=== PATIENT | male | born 1970 | race Caucasian/White ===

== ENCOUNTER 2016-08-05 10:30 | Outpatient (CLI) | payer MEDICAID | END 2016-08-05 10:45 | disposition home or self-care (01) | DX: R07.9 Chest pain, unspecified (principal) ==

== ENCOUNTER 2016-09-08 16:48 | Outpatient (CLI) | payer MEDICAID | END 2016-09-08 16:49 | disposition critical access hospital (66) | DX: R46.89 Other symptoms and signs involving appearance and behavior (principal) | CPT/HCPCS: A0425; A0429 ==

== ENCOUNTER 2016-09-08 17:06 | Emergency (ER) | payer MEDICAID ==
[2016-09-08] MEDS ORDERED: LORazepam 2 MG/ML SYRINGE IVP STA (17:48)
[2016-09-08] MEDS ORDERED: SODIUM CHLORIDE 0.9% 1,000 ML IV ONE ×2 (17:48→17:58)
[2016-09-08] MEDS ORDERED: HALOPERIDOL 5 MG/ML VIAL IVP ONE (17:48)
[2016-09-08] MEDS ORDERED: LORazepam 2 MG/ML SYRINGE ONE (17:58)
[2016-09-08] MEDS ORDERED: HALOPERIDOL 5 MG/ML VIAL ONE (17:58)
== END 2016-09-09 00:24 | disposition home or self-care (01) ==
DX: R41.82 Altered mental status, unspecified (principal); F15.90 Other stimulant use, unspecified, uncomplicated; Z59.0 Homelessness; R03.0 Elevated blood-pressure reading, without diagnosis of hypertension
CPT/HCPCS: 36415; 80053; 80307; 80320; 80329; 82550; 83690; 83735; 84443; 85025; 96374; 96375; 99283; 99284; J2060

== ENCOUNTER 2016-09-29 08:32 | Emergency (ER) | payer MEDICAID ==
[2016-09-29] MEDS ORDERED: BENZONATATE 100 MG CAPSULE PO STA (09:06)
[2016-09-29] MEDS ORDERED: OXYMETAZOLINE NASAL SPRAY NAS STA (09:07)
--- NOTE | 2016-09-29 09:09 | ED Physician Documentation ---
History of Present Illness - Stated complaint Stated Complaint: DIFFICULTY BREATHING - Chief complaint Chief Complaint: General - Additonal information Additional information: hx from pt 46 male fever cough congestion sore throat for seversal days L calf pain insidious onset worse with standing for many months staying at a [facility] and was told if he did not go to the ER for his cough he could not come back Review of Systems Constitutional: reports: Fever Throat: reports: Sore throat Respiratory: reports: Cough GI: denies: Abdominal Pain Musculoskeletal: reports: Extremity pain (L calf). denies: Extremity swelling Endocrine: denies: Easy bruising / bleeding Immunocompromised: denies: Immunocompromised PD PAST MEDICAL HISTORY - Past Medical History Cardiovascular: None Respiratory: None Neuro: None GI: GERD Musculoskeletal: None - Present Medications Home Medications: Ambulatory Orders Medication Instructions Recorded Confirmed Benzonatate [Tessalon] 100 mg PO TID PRN #20 capsule 09/29/16 Omeprazole [PriLOSEC] 20 mg PO DAILY 09/29/16 09/29/16 Oxymetazoline HCl [Afrin] 2 spray NS BID PRN #1 bottle 09/29/16 guaiFENesin/DEXTROMETHORPHAN 10 ml PO Q6H PRN #120 ml 09/29/16 [Robitussin Dm] - Allergies Allergies/Adverse Reactions: Allergies Allergy/AdvReac Type Severity Reaction Status Date / Time No Known Drug Allergies Allergy Verified 09/29/16 08:37 - Social History Does the pt smoke?: No Smoking Status: Never smoker Does the pt drink ETOH?: Yes Does the pt have substance abuse?: Yes Substance Use and Type: Meth PD ED PE NORMAL - Vitals Vital signs reviewed: Yes - General General: Alert and oriented X 3 - HEENT HEENT: PERRL, Moist mucous membranes. No: Pharynx benign (erythema s exudate) - Neck Neck: Supple, no meningeal sign - Cardiac Cardiac: RRR - Respiratory Respiratory: No respiratory distress, Clear bilaterally - Abdomen Abdomen: Soft, Non tender - Back Back: No spinal TTP (and no erythema swelling or warmth) - Extremities Extremities: No edema. No: No calf tenderness / cord (L calf TTP, MSV intact, worse with SLR, denmies saddle anesthesia incont, hip flex knee ext foot dorsi plantar 5/5) Results - Vitals Vitals: Vital Signs - 24 hr 09/29/16 09/29/16 08:35 11:11 Temperature 37.1 C Heart Rate 80 87 Respiratory 20 22 Rate Blood Pressure 144/94 H 136/88 H O2 Saturation 100 97 Oxygen O2 Source Room air - Labs Labs: Laboratory Tests 09/29/16 09:15 Group A Strep Rapid Negative - Rads (name of study) CXR Radiology: See rad report (neg) doppler Radiology: See rad report (neg) PD MEDICAL DECISION MAKING - ED course ED course: no pna no strep no DVT will dc with symptomatic meds Departure - Departure Disposition: 01 Home, Self Care Clinical Impression: Bronchitis Condition: Good Instructions: ED URI Viral Prescriptions: Oxymetazoline HCl [Afrin] 2 spray NS BID PRN #1 bottle PRN Reason: nasal sinus ear congestion guaiFENesin/DEXTROMETHORPHAN [Robitussin Dm] 10 ml PO Q6H PRN #120 ml PRN Reason: Cough Benzonatate [Tessalon] 100 mg PO TID PRN #20 capsule PRN Reason: to ease cough Comments: The strep test was negative The xray showed no pneumonia Your cough is likely a viral infection This does not make you any less ill but means antibiotics are not needed I have prescribed medications to ease your symptoms. If the strep culture is positive the ER will call you to start antibiotics The ultrasound of your leg did not show a blood clot - the pain is likely from the calf muscle. Wearing cushioned shoes with good arch support and using a heel cushion (available over the counter from [employer]) to ease the stretch on your calf should help ease the pain at work And please follow up with your PMD about your blood pressure - it was high today
[2016-09-29] MEDS ORDERED: OXYMETAZOLINE NASAL SPRAY NAS ONE (09:11)
[2016-09-29] MEDS ORDERED: BENZONATATE 100 MG CAPSULE PO ONE (09:11)
[2016-09-29] MEDS ORDERED: DEXAMETHASONE 10 MG/ML VIAL PO STA (09:11)
[2016-09-29 09:37] LABS: RAPID STREP SCREEN REAGENT QC YELLOW (YELLOW)
[2016-09-29] MEDS ORDERED: DEXAMETHASONE 10 MG/ML VIAL ONE (09:39)
--- NOTE | 2016-09-29 10:07 | XRAY Preliminary Report ---
Exam: XR Chest 2 View PA/LAT IMPRESSION: Normal 2-view chest radiography. [facility] SITE ID: [id number]
--- NOTE | 2016-09-29 10:10 | XRAY Report ---
EXAM: CHEST RADIOGRAPHY EXAM DATE: 09/29/2016 09:29 AM. CLINICAL HISTORY: Cough soa. COMPARISON: 08/13/2012. TECHNIQUE: 2 views. FINDINGS: Lungs/Pleura: No focal opacities evident. No pleural effusion. No pneumothorax. Normal volumes. Mediastinum: Heart and mediastinal contours are unremarkable. Other: None. IMPRESSION: Normal 2-view chest radiography. [facility] Referring Provider Line: [phone] SITE ID: [id number]
[2016-09-29 11:50] VITALS: BP 133/87
--- NOTE | 2016-09-29 13:58 | Ultrasound Report ---
LEFT LEG VENOUS DUPLEX: 09/29/2016 CLINICAL INDICATION: Pain. TECHNIQUE: Real-time sonographic vascular imaging was performed by the community living instructor through the left l ower extremity utilizing both color flow and Doppler spectral analysis. Multiple technical support representative stati c images were saved for review. FINDINGS: A left lower extremity venous sonogram is performed revealing the common femoral, superfici al femoral, profunda femoris, and popliteal veins to be adequately visualized without intraluminal de fects. There is normal venous compression, augmentation, phasicity, and spontaneity of venous flow. In the calf, the visualized more cephalad portions of posterior tibial and peroneal veins are grossly compressible, without filling defects. IMPRESSION: NO EVIDENCE OF DEEP VENOUS THROMBOSIS. JOB #: [id number] EXT JOB #:[id number]
== END 2016-09-29 11:50 | disposition home or self-care (01) ==
LOC: ED 08:32
DX: J40 Bronchitis, not specified as acute or chronic (principal); M79.662 Pain in left lower leg; R03.0 Elevated blood-pressure reading, without diagnosis of hypertension
CPT/HCPCS: 71020; 87070; 87430; 93971; 99283; 99284; A9270

== ENCOUNTER 2017-03-27 23:22 | Outpatient (CLI) | payer MEDICAID | END 2017-03-27 23:23 | disposition critical access hospital (66) | LOC: EMS 23:22 | PROVIDERS: ATTEND Surgery | DX: F99 Mental disorder, not otherwise specified (principal) | CPT/HCPCS: A0425; A0429 ==

== ENCOUNTER 2017-03-27 23:37 | Emergency (ER) | payer MEDICAID ==
[2017-03-28 02:59] VITALS: BP 160/92
[2017-03-28 03:16] LABS: BASOPHILS % (AUTO) 0.2 %; EOSINOPHILS # (AUTO) 0.1 10^3/uL (0.0-0.7); EOSINOPHILS % (AUTO) 0.9 %; HCT - HEMATOCRIT 37.1 % (42.0-52.0); HGB - HEMOGLOBIN 12.7 g/dL (14.0-18.0); LYMPHOCYTES # (AUTO) 2.2 10^3/uL (1.5-3.5); LYMPHOCYTES % (AUTO) 18.5 %; MEAN CORPUSCULAR HEMOGLOBIN 29.8 pg (27.0-31.0); MEAN CORPUSCULAR HGB CONC 34.1 g/dL (32.0-36.0); MEAN CORPUSCULAR VOLUME 87.5 fL (80.0-94.0); MONOCYTES # (AUTO) 1.2 10^3/uL (0.0-1.0); MONOCYTES % (AUTO) 10.4 %; NEUTROPHILS # (AUTO) 8.4 10^3/uL (1.5-6.6); RED BLOOD COUNT 4.24 10^6/uL (4.70-6.10); RED CELL DISTRIBUTION WIDTH 13.7 % (12.0-15.0)
[2017-03-28 03:27] LABS: ALBUMIN/GLOBULIN RATIO 1.1 (1.0-2.2); BILIRUBIN,TOTAL 0.9 mg/dL (0.2-1.0); BUN - BLOOD UREA NITROGEN 19 mg/dL (6-20); CALCIUM 9.2 mg/dL (8.5-10.3); CARBON DIOXIDE - CO2 21 mmol/L (21-32); CHLORIDE 102 mmol/L (101-111); GFR - MDRD 81 (>89); GLUCOSE 104 mg/dL (70-100); LIPASE 23 U/L (22-51); POTASSIUM 3.5 mmol/L (3.5-5.0); SODIUM 136 mmol/L (135-145); TOTAL PROTEIN 7.8 g/dL (6.7-8.2)
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
== END 2017-03-28 08:26 | disposition home or self-care (01) ==
LOC: EDUNIT# → ED 23:37
DX: F15.10 Other stimulant abuse, uncomplicated (principal); R40.4 Transient alteration of awareness; Z59.0 Homelessness
CPT/HCPCS: 36415; 80053; 80306; 80320; 83690; 85025; 99283; 99284

== ENCOUNTER 2017-04-15 07:05 | Outpatient (CLI) | payer MEDICAID | END 2017-04-15 07:06 | disposition critical access hospital (66) | LOC: EMS 07:05 | PROVIDERS: ATTEND Surgery | DX: R10.9 Unspecified abdominal pain (principal) | CPT/HCPCS: A0425; A0429 ==

== ENCOUNTER 2017-04-15 07:20 | Emergency (ER) | payer MEDICAID ==
[2017-04-15] MEDS ORDERED: LIDOCAINE VISCOUS 2% 15 ML UDC MM STA (07:27)
[2017-04-15] MEDS ORDERED: MAG HYDROX/AL HYDROX/SIMETH 30 ML UDC PO STA (07:27)
[2017-04-15] MEDS ORDERED: FAMOTIDINE 20 MG/50 ML 50 ML IV ONE ×2 (07:28→08:09)
--- NOTE | 2017-04-15 07:31 | ED Physician Documentation ---
History of Present Illness - Stated complaint Stated Complaint: ABD PAIN - Chief complaint Chief Complaint: Abd Pain - Additonal information Additional information: hx from pt 46 male 2 primary concerns 1) "esophogeal" pain from epigastric region to chest buring 11/22 for last several hr he believes due to being out of his omeprazole. hx same sx when out of omeprazole, states he vomited 1/2 cup of blood earlier today, denies balck bloody BMs, EtOH abuse but denies cirrhosis/liver dz/esophogeal varices 2) homeless, has been banned from [employer], uses EtOH and meth Review of Systems Constitutional: denies: Fever Cardiac: reports: Chest pain / pressure Respiratory: denies: Dyspnea GI: reports: Abdominal Pain, Nausea, Vomiting, Hematemesis. denies: Bloody / black stool Endocrine: denies: Easy bruising / bleeding Immunocompromised: denies: Immunocompromised PD PAST MEDICAL HISTORY - Past Medical History Cardiovascular: None Respiratory: None Neuro: None GI: GERD Musculoskeletal: None - Present Medications Home Medications: Ambulatory Orders Medication Instructions Recorded Confirmed Omeprazole [PriLOSEC] 20 mg PO DAILY 09/29/16 04/15/17 Omeprazole [PriLOSEC] 20 mg PO DAILY #30 capsule 04/15/17 Sucralfate 1 gm PO ACHS #120 tablet 04/15/17 raNITIdine [Zantac] 150 mg PO BID #60 tablet 04/15/17 - Allergies Allergies/Adverse Reactions: Allergies Allergy/AdvReac Type Severity Reaction Status Date / Time No Known Drug Allergies Allergy Verified 04/15/17 07:28 - Social History Does the pt smoke?: No Smoking Status: Never smoker Does the pt drink ETOH?: Yes Does the pt have substance abuse?: Yes PD ED PE NORMAL - Vitals Vital signs reviewed: Yes - General General: Alert and oriented X 3 - HEENT HEENT: PERRL, Other (no blood in or around mouth) - Neck Neck: Supple, no meningeal sign - Cardiac Cardiac: RRR - Respiratory Respiratory: No respiratory distress - Abdomen Abdomen: Soft, Non tender - Derm Derm: Normal color - Extremities Extremities: Normal ROM s pain - Neuro Neuro: Alert and oriented X 3 - Psych Psych: Normal mood Results - Vitals Vitals: Vital Signs - 24 hr 04/15/17 07:22 Temperature 36.6 C Heart Rate 82 Respiratory 20 Rate Blood Pressure 133/93 H O2 Saturation 97 Oxygen O2 Source Room air - EKG (time done) 0738 Rate: Rate (enter#) Rhythm: NSR Intervals: Normal LA QRS: Normal Ischemia: Normal ST segments - Labs Labs: Laboratory Tests 04/15/17 04/15/17 04/15/17 07:44 07:44 07:44 WBC 11.6 H RBC 4.59 L Hgb 13.8 L Hct 40.2 L MCV 87.6 MCH 30.1 MCHC 34.4 RDW 13.2 Plt Count 294 MPV 6.9 L Neut # 8.5 H Lymph # 1.9 [place] # 0.7 Eos # 0.4 Baso # 0.0 Absolute Nucleated RBC 0.00 Nucleated RBC % 0.0 PT 10.9 INR 1.0 Sodium 137 Potassium 3.9 Chloride 101 Carbon Dioxide 23 Anion Gap 13.0 BUN 17 Creatinine 1.0 Estimated GFR (MDRD) 81 L Glucose 116 H Calcium 9.0 Total Bilirubin 0.5 AST 23 ALT 24 Alkaline Phosphatase 52 Troponin I Total Protein 7.8 Albumin 4.1 Globulin 3.7 Albumin/Globulin Ratio 1.1 Lipase 23 04/15/17 07:44 WBC RBC Hgb Hct MCV MCH MCHC RDW Plt Count MPV Neut # Lymph # [place] # Eos # Baso # Absolute Nucleated RBC Nucleated RBC % PT INR Sodium Potassium Chloride Carbon Dioxide Anion Gap BUN Creatinine Estimated GFR (MDRD) Glucose Calcium Total Bilirubin AST ALT Alkaline Phosphatase Troponin I < 0.04 Total Protein Albumin Globulin Albumin/Globulin Ratio Lipase PD MEDICAL DECISION MAKING - ED course ED course: nl EKG, nl trop, low concern for cardiac etiology given hx, do not feel serial trop needed nl CXR - no free air, nl aorta/mediastinum no hx esophogeal varices nl LFTs INR make sig underlying liver dz to cause varices unlikely hx same sx with PUD/GERD before no further bleeding inER, stable VS, pt denies bloody black BM will refill omperazole, add zantac and carafate, encourage EtOH cessation and refer to surgery as outpt for scope requested SW consult for homelees etc and pt given resources booklet Departure - Departure Disposition: Home, Self Care Clinical Impression: Gastritis Qualifiers: Gastritis type: alcoholic Chronicity: acute Gastritis bleeding: with bleeding Qualified Code(s): K29.21 - Alcoholic gastritis with bleeding Condition: Good Instructions: ED GERD, ED PUD Vs Gastritis Follow-Up: SHELLY JOLLEY MD [Provider Admit Priv/Credential] - (to discuss a scope of your stomach) Prescriptions: Omeprazole [PriLOSEC] 20 mg PO DAILY #30 capsule raNITIdine [Zantac] 150 mg PO BID #60 tablet Sucralfate 1 gm PO ACHS #120 tablet Comments: Your EKG and the blood test for you heart were fine The xray did not suggest a perforation of your stomach or esophagus. Your blood count is fine - you have not lost too much blood I think it is safe for you to go home on the medication I prescribed Recommend cutting down on alcohol. Please follow up with your PMD next week fir a recheck and call the surgery clinic to schedule a scope of your stomach You were given resources for housing etc as well Return if worse especially if you vomit or poop more blood
[2017-04-15 07:55] LABS: BASOPHILS % (AUTO) 0.3 %; EOSINOPHILS # (AUTO) 0.4 10^3/uL (0.0-0.7); EOSINOPHILS % (AUTO) 3.4 %; HCT - HEMATOCRIT 40.2 % (42.0-52.0); HGB - HEMOGLOBIN 13.8 g/dL (14.0-18.0); LYMPHOCYTES # (AUTO) 1.9 10^3/uL (1.5-3.5); LYMPHOCYTES % (AUTO) 16.1 %; MEAN CORPUSCULAR HEMOGLOBIN 30.1 pg (27.0-31.0); MEAN CORPUSCULAR HGB CONC 34.4 g/dL (32.0-36.0); MEAN CORPUSCULAR VOLUME 87.6 fL (80.0-94.0); MEAN PLATELET VOLUME 6.9 fL (7.4-11.4); MONOCYTES # (AUTO) 0.7 10^3/uL (0.0-1.0); MONOCYTES % (AUTO) 6.4 %; NEUTROPHILS # (AUTO) 8.5 10^3/uL (1.5-6.6); NEUTROPHILS % (AUTO) 73.8 %; RED BLOOD COUNT 4.59 10^6/uL (4.70-6.10); RED CELL DISTRIBUTION WIDTH 13.2 % (12.0-15.0); UNCORRECTED WHITE BLOOD COUNT 11.6 x10^3/uL; WHITE BLOOD COUNT 11.6 x10^3/uL (4.8-10.8)
[2017-04-15 07:59] LABS: PT - PROTHROMBIN TIME 10.9 secs (9.9-12.6)
--- NOTE | 2017-04-15 08:04 | XRAY Preliminary Report ---
Exam: XR CHEST 2 VIEW PA/LAT IMPRESSION: Normal 2-view chest radiography for age. No significant change from prior. [facility] SITE ID: [id number]
--- NOTE | 2017-04-15 08:06 | XRAY Report ---
EXAM: CHEST RADIOGRAPHY EXAM DATE: 04/15/2017 07:57 AM. CLINICAL HISTORY: Cp. COMPARISON: 09/29/2016. TECHNIQUE: 2 views. FINDINGS: Lungs/Pleura: No focal opacities evident. No pleural effusion. No pneumothorax. Normal volumes. Mediastinum: Heart and mediastinal contours are unremarkable. Other: None. IMPRESSION: Normal 2-view chest radiography for age. No significant change from prior. [facility] Referring Provider Line: [phone] SITE ID: [id number]
[2017-04-15 08:09] LABS: ALBUMIN/GLOBULIN RATIO 1.1 (1.0-2.2); BILIRUBIN,TOTAL 0.5 mg/dL (0.2-1.0); POTASSIUM 3.9 mmol/L (3.5-5.0); TOTAL PROTEIN 7.8 g/dL (6.7-8.2)
[2017-04-15] MEDS ORDERED: LIDOCAINE VISCOUS 2% 15 ML UDC MM ONE (08:09)
[2017-04-15] MEDS ORDERED: MAG HYDROX/AL HYDROX/SIMETH 30 ML UDC ONE (08:09)
[2017-04-15 09:18] VITALS: BP 128/88
[2017-04-15] MEDS ORDERED: ACETAMINOPHEN 325 MG TABLET PO STA (09:23)
[2017-04-15] MEDS ORDERED: ACETAMINOPHEN 325 MG TABLET PO ONE (09:34)
== END 2017-04-15 09:30 | disposition home or self-care (01) ==
LOC: EDUNIT# → ED 07:20
DX: K29.21 Alcoholic gastritis with bleeding (principal); K21.9 Gastro-esophageal reflux disease without esophagitis; Z59.0 Homelessness
CPT/HCPCS: 36415; 71020; 80053; 83690; 84484; 85025; 85610; 93005; 96365; 99284; A9270

== ENCOUNTER 2017-04-22 09:39 | Outpatient (CLI) | payer MEDICAID | END 2017-04-22 09:40 | disposition home or self-care (01) | LOC: EMS 09:39 | PROVIDERS: ATTEND Surgery | DX: R46.89 Other symptoms and signs involving appearance and behavior (principal) | CPT/HCPCS: A0425; A0429 ==

== ENCOUNTER 2017-04-22 09:58 | Emergency (ER) | payer MEDICAID ==
[2017-04-22 10:59] LABS: BASOPHILS % (AUTO) 0.3 %; EOSINOPHILS # (AUTO) 0.1 10^3/uL (0.0-0.7); EOSINOPHILS % (AUTO) 0.9 %; HCT - HEMATOCRIT 37.4 % (42.0-52.0); HGB - HEMOGLOBIN 12.7 g/dL (14.0-18.0); LYMPHOCYTES # (AUTO) 1.9 10^3/uL (1.5-3.5); LYMPHOCYTES % (AUTO) 16.7 %; MEAN CORPUSCULAR HEMOGLOBIN 30.2 pg (27.0-31.0); MEAN CORPUSCULAR VOLUME 88.7 fL (80.0-94.0); MEAN PLATELET VOLUME 7.3 fL (7.4-11.4); MONOCYTES % (AUTO) 9.1 %; NEUTROPHILS # (AUTO) 8.4 10^3/uL (1.5-6.6); RED BLOOD COUNT 4.21 10^6/uL (4.70-6.10); RED CELL DISTRIBUTION WIDTH 13.2 % (12.0-15.0); UNCORRECTED WHITE BLOOD COUNT 11.5 x10^3/uL; WHITE BLOOD COUNT 11.5 x10^3/uL (4.8-10.8)
[2017-04-22 11:13] LABS: ALBUMIN/GLOBULIN RATIO 1.2 (1.0-2.2); BILIRUBIN,TOTAL 0.8 mg/dL (0.2-1.0); BUN - BLOOD UREA NITROGEN 17 mg/dL (6-20); CALCIUM 8.9 mg/dL (8.5-10.3); CARBON DIOXIDE - CO2 22 mmol/L (21-32); CHLORIDE 103 mmol/L (101-111); CREATININE 0.9 mg/dL (0.6-1.2); GFR - MDRD 91 (>89); GLUCOSE 102 mg/dL (70-100); LIPASE 32 U/L (22-51); POTASSIUM 3.6 mmol/L (3.5-5.0); SODIUM 136 mmol/L (135-145); TOTAL PROTEIN 7.3 g/dL (6.7-8.2)
[2017-04-22 13:06] LABS: BILIRUBIN,URINE NEGATIVE (NEGATIVE)
[2017-04-22 13:08] LABS: UA CHARGE (STRIP ONLY) YES; UR CULTURE IF IND NOT INDICATED
[2017-04-22] MEDS ORDERED: OLANZapine ODT 5 MG TABLET TL ONE ×4 (13:18→16:31)
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
[2017-04-22 20:21] VITALS: BP 148/79
== END 2017-04-22 20:21 | disposition home or self-care (01) ==
LOC: EDBD → EDUNIT# → ED 09:58
DX: F15.10 Other stimulant abuse, uncomplicated (principal); R41.0 Disorientation, unspecified; R03.0 Elevated blood-pressure reading, without diagnosis of hypertension
CPT/HCPCS: 36415; 80053; 80306; 80320; 81003; 83690; 84484; 85025; 99283; 99284; A9270; 81001; 87086

== ENCOUNTER 2017-09-14 20:27 | Emergency (ER) | payer MEDICAID ==
[2017-09-14] MEDS ORDERED: IBUPROFEN 800 MG TABLET PO STA (21:11)
[2017-09-14] MEDS ORDERED: FAMOTIDINE 20 MG TABLET PO STA (21:11)
--- NOTE | 2017-09-14 21:13 | ED Physician Documentation ---
History of Present Illness - Stated complaint Stated Complaint: HIP PX - Chief complaint Chief Complaint: Ext Problem - History obtained from History obtained from: Patient - History of Present Illness Timing: Chronic (years) Pain level max: 6 Pain level now: 6 Improved by: motrin Worsened by: walking - Additonal information Additional information: Patient is a 47-year-old male who is homeless and states he is out of his Prilosec and Zantac. He also states he has been on his feet more than usual and his feet are starting to hurt. Has chronic pain in his hips and shoulders. No fevers. No trauma. No numbness or tingling. Review of Systems Ten Systems: 10 systems reviewed and negative Constitutional: denies: Fever, Chills Ears: denies: Ear pain Nose: denies: Rhinorrhea / runny nose, Congestion Throat: denies: Sore throat Cardiac: denies: Chest pain / pressure Respiratory: denies: Cough GI: denies: Abdominal Pain, Nausea, Vomiting, Diarrhea Skin: denies: Rash Musculoskeletal: denies: Neck pain, Back pain Neurologic: denies: Focal weakness, Numbness, Confused, Altered mental status, Headache PD PAST MEDICAL HISTORY - Past Medical History Past Medical History: Yes Cardiovascular: None Respiratory: None Neuro: None GI: GERD HEENT: None Psych: None Musculoskeletal: Osteoarthritis - Past Surgical History Past Surgical History: No - Present Medications Home Medications: Ambulatory Orders Medication Instructions Recorded Confirmed Omeprazole [PriLOSEC] 20 mg PO DAILY #30 capsule 04/15/17 04/22/17 raNITIdine [Zantac] 150 mg PO BID #60 tablet 04/15/17 04/22/17 Famotidine [Pepcid] 20 mg PO BID #60 tablet 09/14/17 Meloxicam [Mobic] 15 mg PO DAILY PRN #20 tablet 09/14/17 Omeprazole [PriLOSEC] 20 mg PO DAILY #30 capsule 09/14/17 - Allergies Allergies/Adverse Reactions: Allergies Allergy/AdvReac Type Severity Reaction Status Date / Time No Known Drug Allergies Allergy Verified 09/14/17 20:37 - Social History Does the pt smoke?: No Smoking Status: Never smoker Does the pt drink ETOH?: Yes Does the pt have substance abuse?: Yes - Immunizations Immunizations are current?: No - POLST Patient has POLST: No PD ED PE NORMAL - Vitals Vital signs reviewed: Yes - General General: Alert and oriented X 3, No acute distress, Well developed/nourished - HEENT HEENT: PERRL, Moist mucous membranes - Neck Neck: Supple, no meningeal sign - Cardiac Cardiac: RRR, Strong equal pulses - Respiratory Respiratory: No respiratory distress, Clear bilaterally - Abdomen Abdomen: Soft, Non tender, Non distended - Derm Derm: Warm and dry - Extremities Extremities: No tenderness to palpate, Normal ROM s pain, No edema, No calf tenderness / cord, Other (no crepitus ) - Neuro Neuro: Alert and oriented X 3 - Psych Psych: Normal mood, Normal affect Results - Vitals Vitals: Vital Signs - 24 hr 09/14/17 09/14/17 20:33 21:47 Temperature 36.9 C 37.0 C Heart Rate 98 88 Respiratory 16 16 Rate Blood Pressure 124/107 H 132/76 H O2 Saturation 98 98 Oxygen O2 Source Room air PD MEDICAL DECISION MAKING - ED course Complexity details: reviewed old records, re-evaluated patient, considered differential, d/w patient ED course: Patient is a 47-year-old male who presents to the emergency department with what appears to be soreness to the major joints of his body after standing and walking more than usual. Usually takes Motrin but did not have any. No evidence of infection. No fevers. No evidence of septic joint. No trauma. No crepitus. Neurovascularly intact. Will place on anti-inflammatories for home. We will also refill his gastritis and GERD medications. Patient counseled regarding signs and symptoms for which I believe and urgent re- evaluation would be necessary. Patient with good understanding of and agreement to plan and is comfortable going home at this time This document was made in part using voice recognition software. While efforts are made to proofread this document, sound alike and grammatical errors may occur. Departure - Departure Disposition: 01 Home, Self Care Clinical Impression: Arthritis GERD (gastroesophageal reflux disease) Qualifiers: Esophagitis presence: esophagitis presence not specified Qualified Code(s): K21.9 - Gastro-esophageal reflux disease without esophagitis Condition: Good Instructions: ED GERD Follow-Up: Pancho Mckeon MD [Primary Care Provider] - Within 1 week Prescriptions: Famotidine [Pepcid] 20 mg PO BID #60 tablet Meloxicam [Mobic] 15 mg PO DAILY PRN #20 tablet PRN Reason: pain Omeprazole [PriLOSEC] 20 mg PO DAILY #30 capsule Comments: Return if you worsen. Follow up with your doctor for further care.
[2017-09-14 21:48] VITALS: BP 132/76
== END 2017-09-14 21:54 | disposition home or self-care (01) ==
LOC: ED 20:27
DX: M19.91 Primary osteoarthritis, unspecified site (principal); K21.9 Gastro-esophageal reflux disease without esophagitis; K29.70 Gastritis, unspecified, without bleeding; Z76.0 Encounter for issue of repeat prescription; Z59.0 Homelessness
CPT/HCPCS: 99283; A9270

== ENCOUNTER 2017-09-28 20:42 | Emergency (ER) | payer MEDICAID ==
[2017-09-28 20:54] VITALS: BP 136/88
[2017-09-28] MEDS ORDERED: PANTOPRAZOLE 40 MG TABLET PO STA (21:23)
[2017-09-28] MEDS ORDERED: HYDROcod/ACET 5/325 Prepack 4 PO STA (21:23)
--- NOTE | 2017-09-28 21:25 | ED Physician Documentation ---
PD HPI LOWER EXT INJURY - Stated complaint Stated Complaint: FOOT PX - Chief complaint Chief Complaint: Ext Problem - History obtained from History obtained from: Patient - History of Present Illness PD HPI LOW EXT INJURY LOCATION: Other (This is a very pleasant 47-year-old homeless male who presents with chief complaint of bilateral foot pain because he has been walking too much over the last 4 days. He denies fevers or chills.) Review of Systems Constitutional: reports: Reviewed and negative Throat: reports: Reviewed and negative Cardiac: reports: Reviewed and negative PD PAST MEDICAL HISTORY - Past Medical History Cardiovascular: None Respiratory: None GI: GERD HEENT: None Psych: None Musculoskeletal: Osteoarthritis - Past Surgical History Past Surgical History: No - Present Medications Home Medications: Ambulatory Orders Medication Instructions Recorded Confirmed Omeprazole [PriLOSEC] 20 mg PO DAILY #30 capsule 04/15/17 04/22/17 raNITIdine [Zantac] 150 mg PO BID #60 tablet 04/15/17 04/22/17 Famotidine [Pepcid] 20 mg PO BID #60 tablet 09/14/17 Meloxicam [Mobic] 15 mg PO DAILY PRN #20 tablet 09/14/17 Omeprazole [PriLOSEC] 20 mg PO DAILY #30 capsule 09/14/17 Famotidine [Pepcid] 20 mg PO BID #60 tablet 09/28/17 Meloxicam [Mobic] 7.5 mg PO BIDWM PRN #15 tablet 09/28/17 Omeprazole [PriLOSEC] 20 mg PO DAILY #30 capsule 09/28/17 - Allergies Allergies/Adverse Reactions: Allergies Allergy/AdvReac Type Severity Reaction Status Date / Time No Known Drug Allergies Allergy Verified 09/14/17 20:37 - Social History Does the pt smoke?: No Smoking Status: Never smoker Does the pt drink ETOH?: Yes Does the pt have substance abuse?: Yes - Immunizations Immunizations are current?: No - POLST Patient has POLST: No PD ED PE NORMAL - Vitals Vital signs reviewed: Yes - General General: Alert and oriented X 3, No acute distress - Extremities Extremities: Other (On the bottoms of both feet he has multiple small noninfected blisters and some skin breakdown but no cellulitis. No tenderness.) - Neuro Neuro: Alert and oriented X 3, Normal speech - Psych Psych: Normal mood, Normal affect Results - Vitals Vitals: Vital Signs - 24 hr 09/28/17 20:52 Temperature 36.4 C L Heart Rate 75 Respiratory 18 Rate Blood Pressure 136/88 H O2 Saturation 100 Oxygen O2 Source Room air Departure - Departure Disposition: 01 Home, Self Care Clinical Impression: Blisters of multiple sites GERD (gastroesophageal reflux disease) Qualifiers: Esophagitis presence: esophagitis presence not specified Qualified Code(s): K21.9 - Gastro-esophageal reflux disease without esophagitis Condition: Good Record reviewed to determine appropriate education?: Yes Instructions: ED GERD Prescriptions: Famotidine [Pepcid] 20 mg PO BID #60 tablet Meloxicam [Mobic] 7.5 mg PO BIDWM PRN #15 tablet PRN Reason: Pain Omeprazole [PriLOSEC] 20 mg PO DAILY #30 capsule Comments: Call your doctor to arrange a follow-up appointment, make the next available appointment. In the interim, return anytime if worse or if new symptoms develop. Your blood pressure was elevated today on check into the emergency department. This does not mean that you have hypertension, it is a common phenomenon to come to the emergency department and have elevated blood pressure. I recommend that you see your primary care physician within the week to have it rechecked when you are feeling better.
== END 2017-09-28 22:03 | disposition home or self-care (01) ==
LOC: ED 20:42
DX: S90.821A Blister (nonthermal), right foot, initial encounter (principal); S90.822A Blister (nonthermal), left foot, initial encounter; K21.9 Gastro-esophageal reflux disease without esophagitis; R03.0 Elevated blood-pressure reading, without diagnosis of hypertension; Z59.0 Homelessness
CPT/HCPCS: 99283; A9270

== ENCOUNTER 2017-10-20 10:32 | Outpatient (CLI) | payer MEDICAID | END 2017-10-20 10:33 | disposition critical access hospital (66) | LOC: EMS 10:32 | PROVIDERS: ATTEND Surgery | DX: M54.9 Dorsalgia, unspecified (principal); R06.00 Dyspnea, unspecified; W54.8XXA Other contact with dog, initial encounter | CPT/HCPCS: A0425; A0429 ==

== ENCOUNTER 2017-10-20 10:53 | Emergency (ER) | payer MEDICAID ==
[2017-10-20 11:04] VITALS: BP 131/76
[2017-10-20] MEDS ORDERED: PANTOPRAZOLE 40 MG TABLET PO STA (12:38)
[2017-10-20] MEDS ORDERED: CYCLOBENZAPRINE 10 MG TABLET PO STA (12:38)
--- NOTE | 2017-10-20 12:41 | ED Physician Documentation ---
PD HPI BACK INJURY - Stated complaint Stated Complaint: UPPER BACK PX - History obtained from History obtained from: Patient - History of Present Illness Location: Upper (He was playfully wrestling with a dog today and caught it as it jumped on him. He felt a pop medial to the right shoulder and back and has difficulty breathing since then. No other injuries.) Review of Systems Constitutional: reports: Reviewed and negative Throat: reports: Reviewed and negative Cardiac: reports: Reviewed and negative PD PAST MEDICAL HISTORY - Past Medical History Past Medical History: Yes Cardiovascular: None Respiratory: None GI: GERD HEENT: None Psych: None Musculoskeletal: Osteoarthritis - Past Surgical History Past Surgical History: No - Present Medications Home Medications: Ambulatory Orders Medication Instructions Recorded Confirmed Omeprazole [PriLOSEC] 20 mg PO DAILY #30 capsule 04/15/17 04/22/17 raNITIdine [Zantac] 150 mg PO BID #60 tablet 04/15/17 04/22/17 Famotidine [Pepcid] 20 mg PO BID #60 tablet 09/14/17 Meloxicam [Mobic] 15 mg PO DAILY PRN #20 tablet 09/14/17 Omeprazole [PriLOSEC] 20 mg PO DAILY #30 capsule 09/14/17 Famotidine [Pepcid] 20 mg PO BID #60 tablet 09/28/17 Meloxicam [Mobic] 7.5 mg PO BIDWM PRN #15 tablet 09/28/17 Omeprazole [PriLOSEC] 20 mg PO DAILY #30 capsule 09/28/17 Cyclobenzaprine [Flexeril] 10 mg PO TID PRN #20 tablet 10/20/17 Omeprazole [PriLOSEC] 20 mg PO DAILY #30 capsule 10/20/17 - Allergies Allergies/Adverse Reactions: Allergies Allergy/AdvReac Type Severity Reaction Status Date / Time No Known Drug Allergies Allergy Verified 09/14/17 20:37 - Social History Does the pt smoke?: Yes Smoking Status: Current every day smoker Does the pt drink ETOH?: Yes Does the pt have substance abuse?: Yes Substance Use and Type: Meth, Other - Immunizations Immunizations are current?: No - POLST Patient has POLST: No PD ED PE NORMAL - Vitals Vital signs reviewed: Yes - General General: Alert and oriented X 3, No acute distress - Neck Neck: Supple, no meningeal sign, No bony TTP - Cardiac Cardiac: RRR, No murmur - Respiratory Respiratory: No respiratory distress, Clear bilaterally - Back Back: Other (There is no spinal tenderness, he has mild tenderness of the right parathoracic musculature but full range of motion of the shoulder and no obvious rib tenderness.) - Neuro Neuro: Alert and oriented X 3, Normal speech Results - Vitals Vitals: Vital Signs - 24 hr 10/20/17 10:58 Temperature 36.6 C Heart Rate 72 Respiratory 16 Rate Blood Pressure 131/76 H O2 Saturation 100 Oxygen O2 Source Room air - Rads (name of study) 2 view chest x-ray Radiology: EMP read contemporaneously (Normal) PD MEDICAL DECISION MAKING - Sepsis Event Vital Signs: Vital Signs - 24 hr 10/20/17 10:58 Temperature 36.6 C Heart Rate 72 Respiratory 16 Rate Blood Pressure 131/76 H O2 Saturation 100 Oxygen O2 Source Room air Departure - Departure Disposition: 01 Home, Self Care Clinical Impression: GERD (gastroesophageal reflux disease) Qualifiers: Esophagitis presence: esophagitis presence not specified Qualified Code(s): K21.9 - Gastro-esophageal reflux disease without esophagitis Back pain Qualifiers: Back pain location: thoracic back pain Chronicity: acute Back pain laterality: right Qualified Code(s): M54.6 - Pain in thoracic spine Condition: Good Record reviewed to determine appropriate education?: Yes Instructions: GERD Dc Follow-Up: [facility] [Provider Group] [facility] [Provider Group] Prescriptions: Cyclobenzaprine [Flexeril] 10 mg PO TID PRN #20 tablet PRN Reason: Pain Omeprazole [PriLOSEC] 20 mg PO DAILY #30 capsule Comments: Call your doctor to arrange a follow-up appointment, make the next available appointment. In the interim, return anytime if worse or if new symptoms develop. Your blood pressure was elevated today on check into the emergency department. This does not mean that you have hypertension, it is a common phenomenon to come to the emergency department and have elevated blood pressure. I recommend that you see your primary care physician within the week to have it rechecked when you are feeling better.
--- NOTE | 2017-10-20 13:24 | XRAY Report ---
EXAM: CHEST RADIOGRAPHY EXAM DATE: 10/20/2017 01:16 PM. CLINICAL HISTORY: Chest/back pain, trauma. COMPARISON: None. TECHNIQUE: 2 views. FINDINGS: Lungs/Pleura: No focal opacities evident. No pleural effusion. No pneumothorax. Normal volumes. Mediastinum: Heart and mediastinal contours are unremarkable. Other: None. IMPRESSION: Negative chest. [facility] Referring Provider Line: [phone] SITE ID: [id number]
== END 2017-10-20 13:33 | disposition home or self-care (01) ==
LOC: EDUNIT# → ED 10:53
DX: K21.9 Gastro-esophageal reflux disease without esophagitis (principal); M54.6 Pain in thoracic spine; R03.0 Elevated blood-pressure reading, without diagnosis of hypertension; W54.1XXA Struck by dog, initial encounter; Y93.83 Activity, rough housing and horseplay; Y92.538 Other ambulatory health services establishments as the place of occurrence of the external cause
CPT/HCPCS: 71046; 99283; A9270

== ENCOUNTER 2018-01-06 08:00 | Outpatient (CLI) | payer MEDICAID ==
[2018-01-06 12:26] LABS: ALBUMIN 4.2 g/dL (3.2-5.5); ALBUMIN/GLOBULIN RATIO 1.2 (1.0-2.2); ALKALINE PHOSPHATASE 51 IU/L (42-121); ALT ALANINE AMINOTRANSFERASE 23 IU/L (10-60); AST ASPARTATE AMINOTRANSFERASE 23 IU/L (10-42); BILIRUBIN,TOTAL 0.9 mg/dL (0.2-1.0); BUN - BLOOD UREA NITROGEN 15 mg/dL (6-20); CALCIUM 8.8 mg/dL (8.5-10.3); CARBON DIOXIDE - CO2 29 mmol/L (21-32); CHLORIDE 101 mmol/L (101-111); CHOLESTEROL 152 mg/dL; CREATININE 0.9 mg/dL (0.6-1.2); GFR - MDRD 91 (>89); GLUCOSE 95 mg/dL (70-100); HDL CHOLESTEROL 51 mg/dL; LDL CHOLESTEROL,CALCULATED 83 mg/dL; LDL/HDL RATIO 1.6 (<3.6); SODIUM 137 mmol/L (135-145); TOTAL PROTEIN 7.7 g/dL (6.7-8.2); VLDL CHOLESTEROL 18 mg/dL
[2018-01-06 12:28] LABS: BASOPHILS % (AUTO) 0.1 %; EOSINOPHILS # (AUTO) 0.5 10^3/uL (0.0-0.7); EOSINOPHILS % (AUTO) 6.3 %; HGB - HEMOGLOBIN 14.1 g/dL (14.0-18.0); LYMPHOCYTES # (AUTO) 2.2 10^3/uL (1.5-3.5); LYMPHOCYTES % (AUTO) 26.7 %; MEAN CORPUSCULAR HEMOGLOBIN 30.9 pg (27.0-31.0); MEAN CORPUSCULAR VOLUME 88.3 fL (80.0-94.0); MEAN PLATELET VOLUME 7.9 fL (7.4-11.4); MONOCYTES # (AUTO) 0.8 10^3/uL (0.0-1.0); MONOCYTES % (AUTO) 9.5 %; NEUTROPHILS # (AUTO) 4.6 10^3/uL (1.5-6.6); NEUTROPHILS % (AUTO) 57.4 %; PLT - PLATELET COUNT 281 10^3/uL (130-450); RED BLOOD COUNT 4.55 10^6/uL (4.70-6.10); RED CELL DISTRIBUTION WIDTH 13.6 % (12.0-15.0); WHITE BLOOD COUNT 8.1 x10^3/uL (4.8-10.8)
== END 2018-01-06 08:01 | disposition home or self-care (01) ==
LOC: LAB.N 08:00
PROVIDERS: ATTEND Family Medicine
DX: Z00.00 Encounter for general adult medical examination without abnormal findings (principal); F15.20 Other stimulant dependence, uncomplicated; F10.20 Alcohol dependence, uncomplicated; K29.50 Unspecified chronic gastritis without bleeding; F17.201 Nicotine dependence, unspecified, in remission; Z00.01 Encounter for general adult medical examination with abnormal findings
CPT/HCPCS: 36415; 80053; 80061; 83721; 84443; 85025

== ENCOUNTER 2018-04-14 08:00 | Outpatient (CLI) | payer MEDICAID ==
[2018-04-14 19:30] LABS: ALBUMIN 4.7 g/dL (3.2-5.5); ALBUMIN/GLOBULIN RATIO 1.2 (1.0-2.2); BASOPHILS % (AUTO) 0.2 %; BILIRUBIN,TOTAL 0.5 mg/dL (0.2-1.0); CALCIUM 9.4 mg/dL (8.5-10.3); CREATININE 0.9 mg/dL (0.6-1.2); EOSINOPHILS # (AUTO) 0.6 10^3/uL (0.0-0.7); EOSINOPHILS % (AUTO) 6.5 %; HGB - HEMOGLOBIN 14.7 g/dL (14.0-18.0); LYMPHOCYTES # (AUTO) 3.1 10^3/uL (1.5-3.5); LYMPHOCYTES % (AUTO) 32.8 %; MEAN CORPUSCULAR HEMOGLOBIN 29.6 pg (27.0-31.0); MEAN CORPUSCULAR HGB CONC 33.1 g/dL (32.0-36.0); MEAN CORPUSCULAR VOLUME 89.3 fL (80.0-94.0); MEAN PLATELET VOLUME 7.9 fL (7.4-11.4); MONOCYTES # (AUTO) 0.7 10^3/uL (0.0-1.0); MONOCYTES % (AUTO) 7.8 %; NEUTROPHILS # (AUTO) 4.9 10^3/uL (1.5-6.6); NEUTROPHILS % (AUTO) 52.7 %; PLT - PLATELET COUNT 329 10^3/uL (130-450); RED BLOOD COUNT 4.98 10^6/uL (4.70-6.10); TOTAL PROTEIN 8.6 g/dL (6.7-8.2); WHITE BLOOD COUNT 9.3 x10^3/uL (4.8-10.8)
== END 2018-04-14 23:59 | disposition home or self-care (01) ==
LOC: LAB.N 08:00
PROVIDERS: ATTEND Family Medicine
DX: R10.33 Periumbilical pain (principal)
CPT/HCPCS: 36415; 80053; 82150; 83690; 85025; 85651

== ENCOUNTER 2018-04-27 03:07 | Outpatient (CLI) | payer MEDICAID | END 2018-04-27 03:08 | disposition critical access hospital (66) | LOC: EMS 03:07 | PROVIDERS: ATTEND Surgery | DX: M79.652 Pain in left thigh (principal); M79.651 Pain in right thigh | CPT/HCPCS: A0425; A0429; A0999 ==

== ENCOUNTER 2018-04-27 03:23 | Emergency (ER) | payer MEDICAID ==
[2018-04-27] MEDS ORDERED: PANTOPRAZOLE 40 MG TABLET PO STA (03:35)
[2018-04-27] MEDS ORDERED: ACETAMINOPHEN 325 MG TABLET PO STA (03:35)
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
[2018-04-27 03:40] VITALS: BP 127/95
== END 2018-04-27 03:45 | disposition home or self-care (01) ==
LOC: EDUNIT# → ED 03:23
DX: M79.605 Pain in left leg (principal); M79.604 Pain in right leg; F15.10 Other stimulant abuse, uncomplicated; K21.9 Gastro-esophageal reflux disease without esophagitis; F17.200 Nicotine dependence, unspecified, uncomplicated
CPT/HCPCS: 99281; 99283; A9270

== ENCOUNTER 2018-05-20 23:20 | Outpatient (CLI) | payer MEDICAID | END 2018-05-20 23:21 | disposition critical access hospital (66) | LOC: EMS 23:20 | PROVIDERS: ATTEND Surgery | DX: R51 Headache (principal) | CPT/HCPCS: A0425; A0429; A0999 ==

== ENCOUNTER 2018-05-20 23:35 | Emergency (ER) | payer MEDICAID ==
[2018-05-20] MEDS ORDERED: FOLIC ACID INJ 1 MG, THIAMINE INJ 100 MG, MAGNESIUM SULFATE 2 GM, MULTIVITAMIN 10 ML in... IV STA ×5 (23:57)
[2018-05-21] MEDS ORDERED: THIAMINE 100 MG/1 ML 2 ML MDV ONE (00:09)
[2018-05-21] MEDS ORDERED: MAGNESIUM SULFATE 1 GM/2 ML VIAL ONE (00:15)
[2018-05-21 00:29] LABS: BASOPHILS % (AUTO) 0.3 %; EOSINOPHILS # (AUTO) 0.1 10^3/uL (0.0-0.7); EOSINOPHILS % (AUTO) 1.6 %; HGB - HEMOGLOBIN 12.9 g/dL (14.0-18.0); LYMPHOCYTES # (AUTO) 1.6 10^3/uL (1.5-3.5); LYMPHOCYTES % (AUTO) 17.9 %; MEAN CORPUSCULAR HEMOGLOBIN 30.5 pg (27.0-31.0); MEAN CORPUSCULAR HGB CONC 34.9 g/dL (32.0-36.0); MEAN CORPUSCULAR VOLUME 87.5 fL (80.0-94.0); MONOCYTES # (AUTO) 0.8 10^3/uL (0.0-1.0); MONOCYTES % (AUTO) 9.5 %; NEUTROPHILS # (AUTO) 6.3 10^3/uL (1.5-6.6); NEUTROPHILS % (AUTO) 70.7 %; PLT - PLATELET COUNT 285 10^3/uL (130-450); RED BLOOD COUNT 4.24 10^6/uL (4.70-6.10); RED CELL DISTRIBUTION WIDTH 13.3 % (12.0-15.0); WHITE BLOOD COUNT 8.9 x10^3/uL (4.8-10.8)
[2018-05-21 00:47] LABS: ALBUMIN 4.2 g/dL (3.2-5.5); ALBUMIN/GLOBULIN RATIO 1.1 (1.0-2.2); ALKALINE PHOSPHATASE 47 IU/L (42-121); ALT ALANINE AMINOTRANSFERASE 31 IU/L (10-60); AST ASPARTATE AMINOTRANSFERASE 35 IU/L (10-42); BILIRUBIN,TOTAL 0.6 mg/dL (0.2-1.0); BUN - BLOOD UREA NITROGEN 19 mg/dL (6-20); CALCIUM 9.2 mg/dL (8.5-10.3); CARBON DIOXIDE - CO2 23 mmol/L (21-32); CHLORIDE 108 mmol/L (101-111); GFR - MDRD 80 (>89); GLUCOSE 107 mg/dL (70-100); LIPASE 29 U/L (22-51); SODIUM 141 mmol/L (135-145); TOTAL PROTEIN 7.9 g/dL (6.7-8.2)
[2018-05-21 02:34] LABS: MUDS CUTOFF CONCENTRATIONS CUTOFF CONC BELOW:
[2018-05-21 02:36] LABS: BILIRUBIN,URINE NEGATIVE (NEGATIVE); GLUCOSE, URINE (UA) NEGATIVE (NEGATIVE); KETONES,URINE (UA) 15 mg/dL (NEGATIVE); LEUKOCYTE ESTERASE, URINE NEGATIVE (NEGATIVE); NITRITE,URINE NEGATIVE (NEGATIVE); OCCULT BLOOD,URINE TRACE-INTA (NEGATIVE); PROTEIN,URINE NEGATIVE (NEGATIVE); UROBILINOGEN,URINE 0.2 (NORMAL) E.U./dL (NORMAL)
[2018-05-21 02:50] LABS: AMPHETAMINE SCREEN,URINE POSITIVE (NEGATIVE); BENZODIAZEPINES SCREEN, URINE NEGATIVE (NEGATIVE); CLARITY,URINE CLEAR (CLEAR); COCAINE SCREEN URINE NEGATIVE (NEGATIVE); METHADONE SCREEN, URINE NEGATIVE (NEGATIVE); METHAMPHETAMINES SCREEN, URINE NEGATIVE (NEGATIVE); OPIATE SCREEN, URINE NEGATIVE (NEGATIVE); OXYCODONE SCREEN, URINE NEGATIVE (NEGATIVE); PROPOXYPHENE SCREEN, URINE NEGATIVE (NEGATIVE); TRICYCLIC ANTIDEPRESSANT,URINE NEGATIVE (NEGATIVE)
[2018-05-21] MEDS ORDERED: POTASSIUM BICARB 25 MEQ TABLET PO STA (04:24)
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
[2018-05-21 05:32] VITALS: BP 146/104
== END 2018-05-21 05:44 | disposition home or self-care (01) ==
LOC: EDUNIT# → ED 23:35
DX: F15.10 Other stimulant abuse, uncomplicated (principal); E86.0 Dehydration; F17.200 Nicotine dependence, unspecified, uncomplicated
CPT/HCPCS: 36415; 80053; 80306; 80320; 81001; 81003; 83690; 84484; 85025; 87086; 96365; 99284

== ENCOUNTER 2018-05-21 19:56 | Outpatient (CLI) | payer MEDICAID | END 2018-05-21 19:57 | disposition critical access hospital (66) | LOC: EMS 19:56 | PROVIDERS: ATTEND Surgery | DX: R46.89 Other symptoms and signs involving appearance and behavior (principal) | CPT/HCPCS: A0425; A0429; A0999 ==

== ENCOUNTER 2018-05-21 20:11 | Emergency (ER) | payer MEDICAID ==
[2018-05-21] MEDS ORDERED: OLANZapine 10 MG VIAL IM STA (20:16)
--- NOTE | 2018-05-21 20:23 | ED Physician Documentation ---
PD HPI MHE - Stated complaint Stated Complaint: MHE - Chief complaint Chief Complaint: MHE - History obtained from History obtained from: Patient, EMS - History of Present Illness Primary symptom: Psychosis Timing - onset: Unknown Pain level max: 0 Pain level now: 0 Contributing factors: Substance abuse - drugs (states last used methamphetamines yesterday) Recently seen: Emergency Dept (last night for a headache) - Additional information Additional information: 47-year-old male brought into the emergency department by EMS after police were called because the patient was trying to remove his clothing in a grocery store. He states he last used methamphetamines yesterday. States that people of placed screws throughout his body to "bug him". He does not know who the people are. He states they are trying to steal (states a string of numbers) from him and stares at the light as he states this. The numbers are his social security number. He is asking that we scan him for the bugs and screws. Denies any medications. Patient also yelling at his mother, who is not in the room or the ER. Appears to be having a back and forth argument with her. Review of Systems Unable to obtain: [facility] PAST MEDICAL HISTORY - Past Medical History Cardiovascular: None Respiratory: None GI: GERD HEENT: None Psych: None Musculoskeletal: Osteoarthritis - Past Surgical History Past Surgical History: No - Present Medications Home Medications: Ambulatory Orders Medication Instructions Recorded Confirmed Omeprazole [PriLOSEC] 20 mg PO DAILY #30 capsule 10/20/17 04/27/18 - Allergies Allergies/Adverse Reactions: Allergies Allergy/AdvReac Type Severity Reaction Status Date / Time No Known Drug Allergies Allergy Verified 05/20/18 23:42 - Social History Does the pt smoke?: Yes Smoking Status: Current every day smoker Does the pt drink ETOH?: Yes Does the pt have substance abuse?: Yes - Immunizations Immunizations are current?: No - POLST Patient has POLST: No PD ED PE NORMAL - Vitals Vital signs reviewed: Yes - General General: Other (pacing, removing his clothes) - HEENT HEENT: PERRL, Moist mucous membranes - Neck Neck: Supple, no meningeal sign - Cardiac Cardiac: RRR - Respiratory Respiratory: No respiratory distress, Clear bilaterally - Abdomen Abdomen: Soft, Non tender, Non distended - Derm Derm: Warm and dry - Extremities Extremities: No deformity, Normal ROM s pain - Neuro Neuro: Other (alert) - Psych Psych: Other (pressured speech, pacing, looking at lights.) Results - Vitals Vitals: Vital Signs - 24 hr 05/21/18 05/21/18 20:13 21:29 Temperature 37.1 C Heart Rate 93 Respiratory 20 Rate Blood Pressure 163/92 H O2 Saturation 99 Oxygen O2 Source Room air - Labs Labs: Laboratory Tests 05/21/18 05/21/18 05/21/18 20:50 20:50 20:50 WBC 7.9 RBC 4.51 L Hgb 13.3 L Hct 40.2 L MCV 89.1 MCH 29.6 MCHC 33.2 RDW 13.4 Plt Count 295 MPV 7.4 Neut # (Auto) 3.6 Lymph # (Auto) 3.0 [place] # (Auto) 0.8 Eos # (Auto) 0.4 Baso # (Auto) 0.0 Absolute Nucleated RBC 0.01 Nucleated RBC % 0.1 Sodium 137 Potassium 3.2 L Chloride 106 Carbon Dioxide 21 Anion Gap 10.0 BUN 17 Creatinine 0.8 Estimated GFR (MDRD) 104 Glucose 109 H Calcium 8.7 Total Bilirubin 0.8 AST 32 ALT 29 Alkaline Phosphatase 50 Total Protein 7.8 Albumin 4.1 Globulin 3.7 Albumin/Globulin Ratio 1.1 Lipase 32 TSH 0.45 Urine Color Urine Clarity Urine pH Ur Specific [place] Urine Protein Urine Glucose (UA) Urine Ketones Urine Occult Blood Urine Nitrite Urine Bilirubin Urine Urobilinogen Ur Leukocyte Esterase Ur Microscopic Review Urine Culture Comments Salicylates < 6.0 Urine Opiates Screen Ur Oxycodone Screen Urine Methadone Screen Ur Propoxyphene Screen Acetaminophen < 10 L Ur Barbiturates Screen Ur Tricyclics Screen Ur Phencyclidine Scrn Ur Amphetamine Screen U Methamphetamines Scrn U Benzodiazepines Scrn Urine Cocaine Screen U Cannabinoids Screen Ethyl Alcohol < 5.0 05/21/18 22:03 WBC RBC Hgb Hct MCV MCH MCHC RDW Plt Count MPV Neut # (Auto) Lymph # (Auto) [place] # (Auto) Eos # (Auto) Baso # (Auto) Absolute Nucleated RBC Nucleated RBC % Sodium Potassium Chloride Carbon Dioxide Anion Gap BUN Creatinine Estimated GFR (MDRD) Glucose Calcium Total Bilirubin AST ALT Alkaline Phosphatase Total Protein Albumin Globulin Albumin/Globulin Ratio Lipase TSH Urine Color YELLOW Urine Clarity CLEAR Urine pH 5.5 Ur Specific [place] 1.025 Urine Protein NEGATIVE Urine Glucose (UA) NEGATIVE Urine Ketones 15 H Urine Occult Blood TRACE-INTA Urine Nitrite NEGATIVE Urine Bilirubin NEGATIVE Urine Urobilinogen 0.2 (NORMAL) Ur Leukocyte Esterase NEGATIVE Ur Microscopic Review NOT INDICATED Urine Culture Comments NOT INDICATED Salicylates Urine Opiates Screen NEGATIVE Ur Oxycodone Screen NEGATIVE Urine Methadone Screen NEGATIVE Ur Propoxyphene Screen NEGATIVE Acetaminophen Ur Barbiturates Screen NEGATIVE Ur Tricyclics Screen NEGATIVE Ur Phencyclidine Scrn NEGATIVE Ur Amphetamine Screen POSITIVE H U Methamphetamines Scrn POSITIVE H U Benzodiazepines Scrn NEGATIVE Urine Cocaine Screen NEGATIVE U Cannabinoids Screen NEGATIVE Ethyl Alcohol PD MEDICAL DECISION MAKING - ED course Complexity details: reviewed old records, reviewed results, re-evaluated patient, considered differential, d/w patient ED course: 47-year-old male with a history of methamphetamine abuse, presents with acute psychosis. States that he last used methamphetamines yesterday. Was given Zyprexa and fell asleep in the emergency department. Urinalysis was positive for methamphetamine, will allow him to sleep and reevaluate when he awakens. Possible this is methamphetamine induced psychosis? Patient will need to be reevaluated in the morning. If he is still psychotic, would benefit from social work and likely [facility] evaluation. If he has cleared, can likely be discharged home. Patient signed out to [facility] emergency department physician Departure - Departure Clinical Impression: Methamphetamine abuse Psychosis Qualifiers: Psychosis type: unspecified psychosis type Qualified Code(s): F29 - Unspecified psychosis not due to a substance or known physiological condition Condition: Stable
[2018-05-21 20:57] LABS: BASOPHILS % (AUTO) 0.4 %; EOSINOPHILS # (AUTO) 0.4 10^3/uL (0.0-0.7); EOSINOPHILS % (AUTO) 5.6 %; HGB - HEMOGLOBIN 13.3 g/dL (14.0-18.0); LYMPHOCYTES % (AUTO) 38.4 %; MEAN CORPUSCULAR HEMOGLOBIN 29.6 pg (27.0-31.0); MEAN CORPUSCULAR HGB CONC 33.2 g/dL (32.0-36.0); MEAN CORPUSCULAR VOLUME 89.1 fL (80.0-94.0); MEAN PLATELET VOLUME 7.4 fL (7.4-11.4); MONOCYTES # (AUTO) 0.8 10^3/uL (0.0-1.0); MONOCYTES % (AUTO) 9.5 %; NEUTROPHILS # (AUTO) 3.6 10^3/uL (1.5-6.6); NEUTROPHILS % (AUTO) 46.1 %; PLT - PLATELET COUNT 295 10^3/uL (130-450); RED BLOOD COUNT 4.51 10^6/uL (4.70-6.10); RED CELL DISTRIBUTION WIDTH 13.4 % (12.0-15.0); WHITE BLOOD COUNT 7.9 x10^3/uL (4.8-10.8)
[2018-05-21 21:14] LABS: ACETAMINOPHEN < 10 ug/mL (10-30); ALBUMIN 4.1 g/dL (3.2-5.5); ALBUMIN/GLOBULIN RATIO 1.1 (1.0-2.2); ALKALINE PHOSPHATASE 50 IU/L (42-121); ALT ALANINE AMINOTRANSFERASE 29 IU/L (10-60); AST ASPARTATE AMINOTRANSFERASE 32 IU/L (10-42); BILIRUBIN,TOTAL 0.8 mg/dL (0.2-1.0); BUN - BLOOD UREA NITROGEN 17 mg/dL (6-20); CALCIUM 8.7 mg/dL (8.5-10.3); CARBON DIOXIDE - CO2 21 mmol/L (21-32); CHLORIDE 106 mmol/L (101-111); CREATININE 0.8 mg/dL (0.6-1.2); GFR - MDRD 104 (>89); GLUCOSE 109 mg/dL (70-100); LIPASE 32 U/L (22-51); SALICYLATE < 6.0 mg/dL; SODIUM 137 mmol/L (135-145); TOTAL PROTEIN 7.8 g/dL (6.7-8.2)
[2018-05-21 22:12] LABS: MUDS CUTOFF CONCENTRATIONS CUTOFF CONC BELOW:
[2018-05-21 22:16] LABS: BILIRUBIN,URINE NEGATIVE (NEGATIVE); GLUCOSE, URINE (UA) NEGATIVE (NEGATIVE); KETONES,URINE (UA) 15 mg/dL (NEGATIVE); LEUKOCYTE ESTERASE, URINE NEGATIVE (NEGATIVE); NITRITE,URINE NEGATIVE (NEGATIVE); OCCULT BLOOD,URINE TRACE-INTA (NEGATIVE); PH,URINE 5.5 PH (5.0-7.5); PROTEIN,URINE NEGATIVE (NEGATIVE); UROBILINOGEN,URINE 0.2 (NORMAL) E.U./dL (NORMAL)
[2018-05-21 22:17] LABS: CLARITY,URINE CLEAR (CLEAR)
[2018-05-21 22:26] LABS: AMPHETAMINE SCREEN,URINE POSITIVE (NEGATIVE); BENZODIAZEPINES SCREEN, URINE NEGATIVE (NEGATIVE); COCAINE SCREEN URINE NEGATIVE (NEGATIVE); METHADONE SCREEN, URINE NEGATIVE (NEGATIVE); METHAMPHETAMINES SCREEN, URINE POSITIVE (NEGATIVE); OPIATE SCREEN, URINE NEGATIVE (NEGATIVE); OXYCODONE SCREEN, URINE NEGATIVE (NEGATIVE); PROPOXYPHENE SCREEN, URINE NEGATIVE (NEGATIVE); TRICYCLIC ANTIDEPRESSANT,URINE NEGATIVE (NEGATIVE)
[2018-05-22 07:30] VITALS: BP 110/68
--- NOTE | 2018-05-22 07:40 | ED Physician Documentation ---
History of Present Illness - Stated complaint Stated Complaint: MHE - Chief complaint Chief Complaint: MHE PD PAST MEDICAL HISTORY - Past Medical History Past Medical History: Yes Cardiovascular: None Respiratory: None GI: GERD HEENT: None Psych: None Musculoskeletal: Osteoarthritis Other Past Medical History: meth abuse - Past Surgical History Past Surgical History: No - Present Medications Home Medications: Ambulatory Orders Medication Instructions Recorded Confirmed Omeprazole [PriLOSEC] 20 mg PO DAILY #30 capsule 10/20/17 04/27/18 - Allergies Allergies/Adverse Reactions: Allergies Allergy/AdvReac Type Severity Reaction Status Date / Time No Known Drug Allergies Allergy Verified 05/20/18 23:42 - Social History Does the pt smoke?: Yes Smoking Status: Current every day smoker Does the pt drink ETOH?: Yes Does the pt have substance abuse?: Yes Substance Use and Type: Meth - Immunizations Immunizations are current?: No - POLST Patient has POLST: No Results - Vitals Vitals: Vital Signs - 24 hr 05/21/18 05/21/18 05/22/18 20:13 21:29 07:29 Temperature 37.1 C 36.4 C L Heart Rate 93 50 L Respiratory 20 16 Rate Blood Pressure 163/92 H 110/68 O2 Saturation 99 99 Oxygen O2 Source Room air - Labs Labs: Laboratory Tests 05/21/18 05/21/18 05/21/18 20:50 20:50 20:50 WBC 7.9 RBC 4.51 L Hgb 13.3 L Hct 40.2 L MCV 89.1 MCH 29.6 MCHC 33.2 RDW 13.4 Plt Count 295 MPV 7.4 Neut # (Auto) 3.6 Lymph # (Auto) 3.0 [place] # (Auto) 0.8 Eos # (Auto) 0.4 Baso # (Auto) 0.0 Absolute Nucleated RBC 0.01 Nucleated RBC % 0.1 Sodium 137 Potassium 3.2 L Chloride 106 Carbon Dioxide 21 Anion Gap 10.0 BUN 17 Creatinine 0.8 Estimated GFR (MDRD) 104 Glucose 109 H Calcium 8.7 Total Bilirubin 0.8 AST 32 ALT 29 Alkaline Phosphatase 50 Total Protein 7.8 Albumin 4.1 Globulin 3.7 Albumin/Globulin Ratio 1.1 Lipase 32 TSH 0.45 Urine Color Urine Clarity Urine pH Ur Specific [place] Urine Protein Urine Glucose (UA) Urine Ketones Urine Occult Blood Urine Nitrite Urine Bilirubin Urine Urobilinogen Ur Leukocyte Esterase Ur Microscopic Review Urine Culture Comments Salicylates < 6.0 Urine Opiates Screen Ur Oxycodone Screen Urine Methadone Screen Ur Propoxyphene Screen Acetaminophen < 10 L Ur Barbiturates Screen Ur Tricyclics Screen Ur Phencyclidine Scrn Ur Amphetamine Screen U Methamphetamines Scrn U Benzodiazepines Scrn Urine Cocaine Screen U Cannabinoids Screen Ethyl Alcohol < 5.0 05/21/18 22:03 WBC RBC Hgb Hct MCV MCH MCHC RDW Plt Count MPV Neut # (Auto) Lymph # (Auto) [place] # (Auto) Eos # (Auto) Baso # (Auto) Absolute Nucleated RBC Nucleated RBC % Sodium Potassium Chloride Carbon Dioxide Anion Gap BUN Creatinine Estimated GFR (MDRD) Glucose Calcium Total Bilirubin AST ALT Alkaline Phosphatase Total Protein Albumin Globulin Albumin/Globulin Ratio Lipase TSH Urine Color YELLOW Urine Clarity CLEAR Urine pH 5.5 Ur Specific [place] 1.025 Urine Protein NEGATIVE Urine Glucose (UA) NEGATIVE Urine Ketones 15 H Urine Occult Blood TRACE-INTA Urine Nitrite NEGATIVE Urine Bilirubin NEGATIVE Urine Urobilinogen 0.2 (NORMAL) Ur Leukocyte Esterase NEGATIVE Ur Microscopic Review NOT INDICATED Urine Culture Comments NOT INDICATED Salicylates Urine Opiates Screen NEGATIVE Ur Oxycodone Screen NEGATIVE Urine Methadone Screen NEGATIVE Ur Propoxyphene Screen NEGATIVE Acetaminophen Ur Barbiturates Screen NEGATIVE Ur Tricyclics Screen NEGATIVE Ur Phencyclidine Scrn NEGATIVE Ur Amphetamine Screen POSITIVE H U Methamphetamines Scrn POSITIVE H U Benzodiazepines Scrn NEGATIVE Urine Cocaine Screen NEGATIVE U Cannabinoids Screen NEGATIVE Ethyl Alcohol PD MEDICAL DECISION MAKING - ED course ED course: assume care 7 AM 47 male came in last night with psychosis and + for meth hx psychosis and meth was given zyprexa and has been sleeping all night per turnover I am to see if he is still psychotic when he wakes up - if not psychotic consider dc home, if still psychotic get mental health eval 8 Am he was still sound asleep , able to be aroused but too groggy to eval noon he is awake, eating lunch requesting his clothes gave lunch he admits to using "ice" states no hx schizophrenia denies any hallucinations at this time will dc Departure - Departure Disposition: 01 Home, Self Care Clinical Impression: Methamphetamine abuse Psychosis Qualifiers: Psychosis type: unspecified psychosis type Qualified Code(s): F29 - Unspecified psychosis not due to a substance or known physiological condition Condition: Stable Instructions: ED Drug Abuse General Comments: Please stop using drugs You were provided with a list of local resources to help you
== END 2018-05-22 14:39 | disposition home or self-care (01) ==
LOC: EDUNIT# → EDBD → ED 20:11
DX: F15.10 Other stimulant abuse, uncomplicated (principal); F29 Unspecified psychosis not due to a substance or known physiological condition; E86.0 Dehydration; F17.200 Nicotine dependence, unspecified, uncomplicated
CPT/HCPCS: 36415; 80053; 80306; 80307; 80320; 80329; 81003; 83690; 84443; 84484; 85025; 96365; 96372; 99283; 99284; A9270; J3411; 81001; 87086

== ENCOUNTER 2018-06-04 23:12 | Outpatient (CLI) | payer MEDICAID | END 2018-06-04 23:13 | disposition critical access hospital (66) | LOC: EMS 23:12 | PROVIDERS: ATTEND Surgery | DX: R07.9 Chest pain, unspecified (principal) | CPT/HCPCS: A0425; A0429; A0999 ==

== ENCOUNTER 2018-06-04 23:26 | Emergency (ER) | payer MEDICAID ==
[2018-06-04] MEDS ORDERED: SODIUM CHLORIDE 0.9% 1,000 ML IV ONE (23:37)
[2018-06-05 00:07] LABS: BASOPHILS % (AUTO) 0.6 %; EOSINOPHILS # (AUTO) 0.5 10^3/uL (0.0-0.7); EOSINOPHILS % (AUTO) 6.1 %; HGB - HEMOGLOBIN 13.5 g/dL (14.0-18.0); LYMPHOCYTES # (AUTO) 2.9 10^3/uL (1.5-3.5); LYMPHOCYTES % (AUTO) 32.6 %; MEAN CORPUSCULAR HEMOGLOBIN 30.1 pg (27.0-31.0); MEAN CORPUSCULAR HGB CONC 34.1 g/dL (32.0-36.0); MEAN CORPUSCULAR VOLUME 88.1 fL (80.0-94.0); MEAN PLATELET VOLUME 7.3 fL (7.4-11.4); MONOCYTES # (AUTO) 0.9 10^3/uL (0.0-1.0); MONOCYTES % (AUTO) 10.2 %; NEUTROPHILS # (AUTO) 4.5 10^3/uL (1.5-6.6); NEUTROPHILS % (AUTO) 50.5 %; PLT - PLATELET COUNT 353 10^3/uL (130-450); RED BLOOD COUNT 4.48 10^6/uL (4.70-6.10); RED CELL DISTRIBUTION WIDTH 13.4 % (12.0-15.0); WHITE BLOOD COUNT 8.8 x10^3/uL (4.8-10.8)
[2018-06-05 00:13] LABS: ALBUMIN 3.8 g/dL (3.2-5.5); ALBUMIN/GLOBULIN RATIO 0.9 (1.0-2.2); BILIRUBIN,TOTAL 0.5 mg/dL (0.2-1.0); CALCIUM 8.8 mg/dL (8.5-10.3); CREATININE 0.9 mg/dL (0.6-1.2); TOTAL PROTEIN 7.9 g/dL (6.7-8.2)
--- NOTE | 2018-06-05 00:16 | XRAY Report ---
Reason: cp Procedure Date: 06/04/2018 Accession Number: [id number] / [id number] Procedure: XR - Chest 2 View X-Ray CPT Code: 79317 FULL RESULT: EXAM: CHEST RADIOGRAPHY EXAM DATE: 06/04/2018 11:57 PM. CLINICAL HISTORY: Cp. COMPARISON: CHEST 2 VIEW 10/20/2017 1:06 PM. TECHNIQUE: 2 views. FINDINGS: Lungs/Pleura: Low lung volumes. No dense consolidation. No large effusion or pneumothorax. No pulmonary edema. Mediastinum: Heart and mediastinal contours are unremarkable. Other: None. IMPRESSION: No acute radiographic pulmonary abnormalities. RADIA
--- NOTE | 2018-06-05 00:21 | ED Physician Documentation ---
History of Present Illness - Stated complaint Stated Complaint: CP - Chief complaint Chief Complaint: Cardiac - Additonal information Additional information: 47-year-old male was brought to the emergency department for evaluation of chest pain. The patient reports feeling very anxious and that he is having an anxiety attack. The patient [place] police [place], the patient then reported symptoms to the police and the police called EMS. The patient reports using drugs the last 2 days, methamphetamines.No other associated symptoms. Review of Systems Constitutional: reports: Fatigue. denies: Fever, Chills Eyes: denies: Discharge Ears: denies: Ear pain Nose: denies: Congestion Cardiac: reports: Chest pain / pressure Respiratory: denies: Cough GI: denies: Abdominal Pain Musculoskeletal: denies: Neck pain Neurologic: reports: Generalized weakness PD PAST MEDICAL HISTORY - Past Medical History Past Medical History: Yes Cardiovascular: None Respiratory: None GI: GERD HEENT: None Psych: None Musculoskeletal: Osteoarthritis - Past Surgical History Past Surgical History: No - Present Medications Home Medications: Ambulatory Orders Medication Instructions Recorded Confirmed Omeprazole [PriLOSEC] 20 mg PO DAILY #30 capsule 10/20/17 06/04/18 - Allergies Allergies/Adverse Reactions: Allergies Allergy/AdvReac Type Severity Reaction Status Date / Time No Known Drug Allergies Allergy Verified 06/04/18 23:34 - Social History Does the pt smoke?: Yes Smoking Status: Current every day smoker Does the pt drink ETOH?: Yes Does the pt have substance abuse?: Yes Substance Use and Type: Meth - Immunizations Immunizations are current?: No - POLST Patient has POLST: No PD ED PE NORMAL - HEENT HEENT: Atraumatic, PERRL, EOMI, Ears normal, Moist mucous membranes - Neck Neck: Supple, no meningeal sign - Cardiac Cardiac: RRR, Strong equal pulses - Respiratory Respiratory: No respiratory distress - Derm Derm: Normal color - Extremities Extremities: No deformity - Neuro Neuro: Alert and oriented X 3, Normal speech - Psych Psych: Normal mood PD ED PE EXPANDED - General General: Alert, Disheveled, poorly kept, Anxious Results - Vitals Vitals: Vital Signs - 24 hr 06/04/18 06/05/18 06/05/18 23:28 00:44 01:37 Temperature 36.7 C Heart Rate 67 83 88 Respiratory 16 18 15 Rate Blood Pressure 139/91 H 129/83 H 114/68 O2 Saturation 100 100 98 Oxygen O2 Source Room air - EKG (time done) 23:32 Rate: Rate (enter#) Rhythm: NSR [place]: Normal Intervals: Normal [place], QRS normal QRS: Normal Ischemia: Normal ST segments - Labs Labs: Laboratory Tests 06/04/18 06/04/18 06/04/18 23:43 23:43 23:43 WBC 8.8 RBC 4.48 L Hgb 13.5 L Hct 39.4 L MCV 88.1 MCH 30.1 MCHC 34.1 RDW 13.4 Plt Count 353 MPV 7.3 L Neut # (Auto) 4.5 Lymph # (Auto) 2.9 [place] # (Auto) 0.9 Eos # (Auto) 0.5 Baso # (Auto) 0.0 Absolute Nucleated RBC 0.00 Nucleated RBC % 0.0 Sodium 135 Potassium 3.4 L Chloride 102 Carbon Dioxide 22 Anion Gap 11.0 BUN 22 H Creatinine 0.9 Estimated GFR (MDRD) 91 Glucose 95 Calcium 8.8 Total Bilirubin 0.5 AST 24 ALT 21 Alkaline Phosphatase 53 Troponin I < 0.04 Total Protein 7.9 Albumin 3.8 Globulin 4.1 Albumin/Globulin Ratio 0.9 L Lipase 39 06/05/18 01:58 WBC RBC Hgb Hct MCV MCH MCHC RDW Plt Count MPV Neut # (Auto) Lymph # (Auto) [place] # (Auto) Eos # (Auto) Baso # (Auto) Absolute Nucleated RBC Nucleated RBC % Sodium Potassium Chloride Carbon Dioxide Anion Gap BUN Creatinine Estimated GFR (MDRD) Glucose Calcium Total Bilirubin AST ALT Alkaline Phosphatase Troponin I < 0.04 Total Protein Albumin Globulin Albumin/Globulin Ratio Lipase - Rads (name of study) CXR Radiology: Final report received, See rad report (No acute radiographic pulmonary abnormalities. ) PD MEDICAL DECISION MAKING - ED course ED course: The patient's workup does not reveal any significant abnormality. I re- evaluation the patient is resting comfortably and appears to be in no acute distress. Currently, I do not think the patient requires transfer to Higher level of care for emergent provocative study. The patient appears appropriate for discharge and follow-up as an outpatient. The patient will return for any worsening or any concerns Departure - Departure Disposition: 01 Home, Self Care Clinical Impression: Drug abuse Chest pain Qualifiers: Chest pain type: unspecified Qualified Code(s): R07.9 - Chest pain, unspecified Condition: Good Instructions: ED Chest Pain [facility] Follow-Up: Pancho Mckeon MD [Primary Care Provider] - Within 3 Days (Please ask your PMD to arrange for an outpatient stress test) Comments: Please return to the emergency department for worsening symptoms or any concerns
[2018-06-05 02:28] VITALS: BP 120/80
== END 2018-06-05 03:27 | disposition home or self-care (01) ==
LOC: EDUNIT# → ED 23:26
DX: F15.10 Other stimulant abuse, uncomplicated (principal); R07.9 Chest pain, unspecified; F17.200 Nicotine dependence, unspecified, uncomplicated
CPT/HCPCS: 36415; 71046; 80053; 83690; 84484; 85025; 93005; 96360; 99284

== ENCOUNTER 2018-06-09 20:40 | Emergency (ER) | payer MEDICAID ==
--- NOTE | 2018-06-09 21:41 | ED Physician Documentation ---
PD HPI LOWER EXT INJURY - Stated complaint Stated Complaint: BILAT FOOT PX - Chief complaint Chief Complaint: Ext Problem - History obtained from History obtained from: Patient - History of Present Illness PD HPI LOW EXT INJURY LOCATION: Both, Foot Type of injury: Other (he is homeless and has just couple pairs of socks. Says feet are wet often and having burning feeling of them the past few days.). No: Fall, Twist Timing - onset: How many days ago Timing - duration: Days Timing - details: Gradual onset, Still present, Waxing and waning Worsened by: Palpating, Other (walking on feet) Associated symptoms: Numbness, Swelling (he feels has swelling at balls of feet and around toes), Discolored (redness bottoms of both feet). No: Weakness Contributing factors: Other (homeless and is in boots all the time (they are pretty good newer boots with good insoles)). No: Anticoagulated Similar symptoms before: Has not had sx before Review of Systems Constitutional: denies: Fever, Chills, Myalgias Nose: denies: Rhinorrhea / runny nose, Congestion Throat: denies: Sore throat Respiratory: denies: Cough GI: denies: Vomiting, Diarrhea Neurologic: reports: Numbness (bottoms of feet). denies: Focal weakness PD PAST MEDICAL HISTORY - Past Medical History Cardiovascular: None Respiratory: None Endocrine/Autoimmune: None GI: GERD HEENT: None Psych: None Musculoskeletal: Osteoarthritis - Past Surgical History Past Surgical History: No - Present Medications Home Medications: Ambulatory Orders Medication Instructions Recorded Confirmed Omeprazole [PriLOSEC] 20 mg PO DAILY #30 capsule 10/20/17 06/09/18 Fluconazole [Diflucan] 150 mg PO Q2D #3 tablet 06/09/18 Naproxen 375 mg PO BID #20 tablet 06/09/18 Tramadol HCl 50 mg PO Q6H PRN #20 tablet 06/09/18 Vits A and D/White Pet/Lanolin [A 1 applic TP BID #117 oint...g. 06/09/18 and D Ointment] - Allergies Allergies/Adverse Reactions: Allergies Allergy/AdvReac Type Severity Reaction Status Date / Time No Known Drug Allergies Allergy Verified 06/09/18 21:04 - Social History Does the pt smoke?: Yes Smoking Status: Current every day smoker Does the pt drink ETOH?: Yes Does the pt have substance abuse?: Yes - Immunizations Immunizations are current?: No - POLST Patient has POLST: No PD ED PE NORMAL - Vitals Vital signs reviewed: Yes - General General: Alert and oriented X 3, No acute distress, Well developed/nourished - Back Back: No CVA TTP, No spinal TTP - Derm Derm: Normal color, Warm and dry - Extremities Extremities: Other (bottoms of both feet with redness and mild swelling, more to balls and MTPs area. There is uniform redness and some odor, that demarcates to lateral parts of insoles c/w likely tinea. There is also some edema and boggy mid blistering near MTPs and bases of the toes, without excoriation per se, seems to relate to wet and cold injury (trench foot appearance). No visible frostbite per se, though could be residual of that if were recently frostbit (had been cold couple weeks ago outside), but the toe tips are okay, which is where I would have expected cold injury, as opposed to wet injury. ) - Neuro Neuro: Alert and oriented X 3, No motor deficit, Normal speech Results - Vitals Vitals: Oxygen O2 Source Room air Departure - Departure Disposition: 01 Home, Self Care Clinical Impression: Athletes foot Qualifiers: Laterality: bilateral Qualified Code(s): B35.3 - Tinea pedis Trench foot Qualifiers: Encounter type: initial encounter Laterality: unspecified laterality Qualified Code(s): T69.029A - Immersion foot, unspecified foot, initial encounter Condition: Stable Record reviewed to determine appropriate education?: Yes Instructions: ED Fungal Infec Athlete Foot Follow-Up: Pancho Mckeon MD [Primary Care Provider] - Prescriptions: Fluconazole [Diflucan] 150 mg PO Q2D #3 tablet Naproxen 375 mg PO BID #20 tablet Tramadol HCl 50 mg PO Q6H PRN #20 tablet PRN Reason: Pain Vits A and D/White Pet/Lanolin [A and D Ointment] 1 applic TP BID #117 oint...g. Comments: Your feet appear to be blistered and red from irritation from being in repetitively wet. Try to change socks between your pairs when you can. On Tuesday days try to dry them all out and have your shoes off and in the sun to try to dry out as well. Twice daily apply some a and D ointment very lightly as a skin protectant. It also looks like a fungal infection so use a Diflucan orally every other day for 3 more doses. Use some naproxen anti-inflammatory to help with the pain. Add tramadol if needed. Recheck if not improved over the next several days to week. Discharge Date/Time: 06/09/18 23:25
[2018-06-09] MEDS ORDERED: HYDROcod/ACETAM 5/325 MG TABLET PO STA (22:19)
[2018-06-09] MEDS ORDERED: FLUCONAZOLE 100 MG TABLET PO STA (22:19)
[2018-06-09] MEDS ORDERED: A & D OINTMENT 5 GM PACKET TOP STA (22:19)
[2018-06-09] MEDS ORDERED: MAG HYDROX/AL HYDROX/SIMETH 30 ML UDC PO STA (22:19)
[2018-06-09] MEDS ORDERED: NAPROXEN 250 MG TABLET PO STA (22:19)
[2018-06-09 23:13] VITALS: BP 139/97
== END 2018-06-09 23:25 | disposition home or self-care (01) ==
LOC: ED 20:40
DX: B35.3 Tinea pedis (principal); T69.022A Immersion foot, left foot, initial encounter; T69.021A Immersion foot, right foot, initial encounter; X31.XXXA Exposure to excessive natural cold, initial encounter; Z59.0 Homelessness; F17.200 Nicotine dependence, unspecified, uncomplicated
CPT/HCPCS: 99283; A9270

== ENCOUNTER 2018-06-24 21:26 | Outpatient (CLI) | payer MEDICAID | END 2018-06-24 21:27 | disposition critical access hospital (66) | LOC: EMS 21:26 | PROVIDERS: ATTEND Surgery | DX: R06.02 Shortness of breath (principal) | CPT/HCPCS: A0425; A0429 ==

== ENCOUNTER 2018-06-24 21:43 | Emergency (ER) | payer MEDICAID ==
[2018-06-24 21:51] VITALS: BP 140/92
--- NOTE | 2018-06-25 05:35 | ED Physician Documentation ---
History of Present Illness - Stated complaint Stated Complaint: SOA - Chief complaint Chief Complaint: Resp - History obtained from History obtained from: Patient, EMS - History of Present Illness Timing: Today - Additonal information Additional information: 47-year-old homeless male with methamphetamine abuse disorder was in [facility] most of the day today staying warm and at the time of closing he was asked to leave and when he was asked to leave he suddenly developed shortness of breath and the ambulance was called to [facility]. The patient was transported to the hospital and has no specific complaints. Review of Systems Constitutional: denies: Fever Ears: denies: Ear pain Nose: reports: Congestion Throat: denies: Sore throat Cardiac: denies: Chest pain / pressure Respiratory: reports: Dyspnea, Cough GI: denies: Vomiting PD PAST MEDICAL HISTORY - Past Medical History Past Medical History: Yes Cardiovascular: None Respiratory: None Endocrine/Autoimmune: None GI: GERD HEENT: None Psych: Anxiety Musculoskeletal: Osteoarthritis - Past Surgical History Past Surgical History: No - Present Medications Home Medications: Ambulatory Orders Medication Instructions Recorded Confirmed Omeprazole [PriLOSEC] 20 mg PO DAILY #30 capsule 10/20/17 06/09/18 Fluconazole [Diflucan] 150 mg PO Q2D #3 tablet 06/09/18 Naproxen 375 mg PO BID #20 tablet 06/09/18 Tramadol HCl 50 mg PO Q6H PRN #20 tablet 06/09/18 Vits A and D/White Pet/Lanolin [A 1 applic TP BID #117 oint...g. 06/09/18 and D Ointment] Omeprazole 20 mg PO DAILY #30 tab 06/25/18 - Allergies Allergies/Adverse Reactions: Allergies Allergy/AdvReac Type Severity Reaction Status Date / Time No Known Drug Allergies Allergy Verified 06/09/18 21:04 - Social History Does the pt smoke?: Yes Smoking Status: Current every day smoker Does the pt drink ETOH?: Yes Does the pt have substance abuse?: Yes Substance Use and Type: Meth - Immunizations Immunizations are current?: No - POLST Patient has POLST: No PD ED PE NORMAL - Vitals Vital signs reviewed: Yes (hypertensive ) - General General: Alert and oriented X 3, No acute distress, Well developed/nourished - HEENT HEENT: Atraumatic, PERRL, EOMI - Neck Neck: Supple, no meningeal sign, No bony TTP - Cardiac Cardiac: RRR, No murmur - Respiratory Respiratory: No respiratory distress, Clear bilaterally - Back Back: No CVA TTP, No spinal TTP - Derm Derm: Normal color, Warm and dry, No rash - Extremities Extremities: No deformity, No edema - Neuro Neuro: Alert and oriented X 3, belt changer 2-12 intact, No motor deficit, No sensory deficit, Normal speech Eye Opening: Spontaneous Motor: Obeys Commands Verbal: Oriented GCS Score: 15 - Psych Psych: Normal mood, Normal affect Results - Vitals Vitals: Vital Signs - 24 hr 06/24/18 21:44 Temperature 37.1 C Heart Rate 87 Respiratory 18 Rate Blood Pressure 140/92 H O2 Saturation 97 Oxygen O2 Source Room air PD MEDICAL DECISION MAKING - ED course Complexity details: considered differential, d/w patient ED course: 47-year-old homeless male has been brought to the hospital after complaining of shortness of breath while he was taking mcc at [facility]. He is transported to the emergency department and in route has no specific physical findings. He admits that he has been using again and he felt that he smoked too much meth through the glass pipe and he thinks he had too much air in the pipe and this caused his shortness of breath. He feels improved now. Departure - Departure Disposition: 01 Home, Self Care Clinical Impression: Methamphetamine abuse Condition: Stable Instructions: Abuse Meth Abuse and Addiction Follow-Up: Pancho Mckeon MD [Primary Care Provider] - Prescriptions: Omeprazole 20 mg PO DAILY #30 tab.rap.
[2018-06-25] MEDS ORDERED: ACETAMINOPHEN 325 MG TABLET PO STA (06:32)
== END 2018-06-25 06:41 | disposition home or self-care (01) ==
LOC: EDBD → EDUNIT# → ED 21:43
DX: F15.10 Other stimulant abuse, uncomplicated (principal); Z59.0 Homelessness; F17.200 Nicotine dependence, unspecified, uncomplicated
CPT/HCPCS: 99283; A9270

== ENCOUNTER 2018-07-10 19:45 | Emergency (ER) | payer MEDICAID ==
[2018-07-10] MEDS ORDERED: HYDROmorphone 1 MG/ML CARPUJECT IVP STA (19:52)
[2018-07-10] MEDS ORDERED: LORazepam 2 MG/ML VIAL IVP STA (19:52)
--- NOTE | 2018-07-10 19:54 | ED Physician Documentation ---
PD HPI CHEST PAIN - Stated complaint Stated Complaint: CP/OBRIEN - History obtained from History obtained from: Patient - History of Present Illness Timing - onset: Today (This is a 48-year-old gentleman with history of esophagitis and methamphetamine use but no heart problems who presents with substernal chest pain radiating the back that started about 2 hours ago while at rest. It makes him feel panicky and then he developed a headache. Admits to methamphetamine use tonight. Also some alcohol.) Review of Systems Ten Systems: 10 systems reviewed and negative Constitutional: reports: Sweats. denies: Fever, Chills Nose: denies: Rhinorrhea / runny nose, Congestion Cardiac: reports: Chest pain / pressure. denies: Palpitations, Pedal edema, Calf pain Respiratory: denies: Dyspnea, Cough PD PAST MEDICAL HISTORY - Past Medical History Cardiovascular: None Respiratory: None Endocrine/Autoimmune: None GI: GERD HEENT: None Psych: None Musculoskeletal: Osteoarthritis - Past Surgical History Past Surgical History: No - Present Medications Home Medications: Ambulatory Orders Medication Instructions Recorded Confirmed Omeprazole [PriLOSEC] 20 mg PO DAILY #30 capsule 10/20/17 06/09/18 Fluconazole [Diflucan] 150 mg PO Q2D #3 tablet 06/09/18 Naproxen 375 mg PO BID #20 tablet 06/09/18 Tramadol HCl 50 mg PO Q6H PRN #20 tablet 06/09/18 Vits A and D/White Pet/Lanolin [A 1 applic TP BID #117 oint...g. 06/09/18 and D Ointment] Omeprazole 20 mg PO DAILY #30 tab 06/25/18 - Allergies Allergies/Adverse Reactions: Allergies Allergy/AdvReac Type Severity Reaction Status Date / Time No Known Drug Allergies Allergy Verified 07/10/18 19:55 - Social History Does the pt smoke?: Yes Smoking Status: Current every day smoker Does the pt drink ETOH?: Yes Does the pt have substance abuse?: Yes - Immunizations Immunizations are current?: No - POLST Patient has POLST: No PD ED PE NORMAL - Vitals Vital signs reviewed: Yes - General General: Alert and oriented X 3, Other (He is fidgety and slightly tangential, slightly diaphoretic.) - HEENT HEENT: PERRL, EOMI - Neck Neck: Supple, no meningeal sign, No bony TTP - Cardiac Cardiac: RRR, No murmur - Respiratory Respiratory: No respiratory distress, Clear bilaterally - Abdomen Abdomen: Soft, Non tender - Back Back: No CVA TTP, No spinal TTP - Derm Derm: Normal color, Warm and dry - Extremities Extremities: No edema, No calf tenderness / cord - Neuro Neuro: Alert and oriented X 3, Normal speech Results - Vitals Vitals: Vital Signs - 24 hr 07/10/18 07/10/18 07/10/18 19:51 20:19 21:04 Temperature 37.3 C Heart Rate 108 H 93 90 Respiratory 22 15 16 Rate Blood Pressure 144/104 H 124/92 H 103/58 L O2 Saturation 98 98 97 Oxygen O2 Source Room air - EKG (time done) 1953 Rate: Rate (enter#) (95) Rhythm: NSR [place]: Normal Intervals: Normal SC QRS: Normal, LVH Ischemia: Normal ST segments Computer interpretation: Agree with computer - Labs Labs: Laboratory Tests 07/10/18 07/10/18 07/10/18 19:59 19:59 19:59 WBC 9.4 RBC 4.91 Hgb 14.4 Hct 43.0 MCV 87.7 MCH 29.3 MCHC 33.4 RDW 13.0 Plt Count 403 MPV 6.9 L Neut # (Auto) 5.0 Lymph # (Auto) 3.2 [place] # (Auto) 0.7 Eos # (Auto) 0.5 Baso # (Auto) 0.0 Absolute Nucleated RBC 0.00 Nucleated RBC % 0.0 Sodium 137 Potassium 3.7 Chloride 99 L Carbon Dioxide 27 Anion Gap 11.0 BUN 14 Creatinine 1.0 Estimated GFR (MDRD) 80 L Glucose 106 H Calcium 8.8 Total Bilirubin 0.9 AST 22 ALT 18 Alkaline Phosphatase 61 Troponin I < 0.04 Total Protein 8.7 H Albumin 4.2 Globulin 4.5 H Albumin/Globulin Ratio 0.9 L Lipase 29 Salicylates < 6.0 Acetaminophen < 10 L Ethyl Alcohol 64.0 07/10/18 20:58 WBC RBC Hgb Hct MCV MCH MCHC RDW Plt Count MPV Neut # (Auto) Lymph # (Auto) [place] # (Auto) Eos # (Auto) Baso # (Auto) Absolute Nucleated RBC Nucleated RBC % Sodium Potassium Chloride Carbon Dioxide Anion Gap BUN Creatinine Estimated GFR (MDRD) Glucose Calcium Total Bilirubin AST ALT Alkaline Phosphatase Troponin I < 0.04 Total Protein Albumin Globulin Albumin/Globulin Ratio Lipase Salicylates Acetaminophen Ethyl Alcohol - Rads (name of study) CT Angio Chest Radiology: EMP read contemporaneously (normal) PD MEDICAL DECISION MAKING - ED course ED course: This is a 48-year-old gentleman who presents with acute chest pain radiating to the back in the setting of methamphetamine and alcohol abuse. Most likely diagnosis would be a GI issue, that said aortic dissection and VA are also on the differential. Troponins were done in the emergency department and were undetectable. There was no evidence of ischemia on EKG, CT of the chest was done to evaluate the aorta without acute pathological findings. He was feeling much better after the administration of Ativan and Dilaudid here. Departure - Departure Disposition: 01 Home, Self Care Clinical Impression: Methamphetamine abuse Chest pain Qualifiers: Chest pain type: precordial pain Qualified Code(s): R07.2 - Precordial pain Condition: Stable Record reviewed to determine appropriate education?: Yes Instructions: ED Chest Pain NonCardiac Comments: It is important to stop using methamphetamines. Drugs are bad for you. Follow- up with your physician, return if worse or if new symptoms develop.
[2018-07-10 20:03] LABS: BASOPHILS % (AUTO) 0.5 %; EOSINOPHILS # (AUTO) 0.5 10^3/uL (0.0-0.7); EOSINOPHILS % (AUTO) 5.6 %; HGB - HEMOGLOBIN 14.4 g/dL (14.0-18.0); LYMPHOCYTES # (AUTO) 3.2 10^3/uL (1.5-3.5); LYMPHOCYTES % (AUTO) 33.8 %; MEAN CORPUSCULAR HEMOGLOBIN 29.3 pg (27.0-31.0); MEAN CORPUSCULAR HGB CONC 33.4 g/dL (32.0-36.0); MEAN CORPUSCULAR VOLUME 87.7 fL (80.0-94.0); MEAN PLATELET VOLUME 6.9 fL (7.4-11.4); MONOCYTES # (AUTO) 0.7 10^3/uL (0.0-1.0); MONOCYTES % (AUTO) 7.1 %; PLT - PLATELET COUNT 403 10^3/uL (130-450); RED BLOOD COUNT 4.91 10^6/uL (4.70-6.10); WHITE BLOOD COUNT 9.4 x10^3/uL (4.8-10.8)
[2018-07-10] MEDS ORDERED: IOVERSOL 320 100 ML VIAL IVP ONE ×3 (20:07→21:02)
[2018-07-10 20:19] LABS: ACETAMINOPHEN < 10 ug/mL (10-30); ALBUMIN 4.2 g/dL (3.2-5.5); ALBUMIN/GLOBULIN RATIO 0.9 (1.0-2.2); ALKALINE PHOSPHATASE 61 IU/L (42-121); ALT ALANINE AMINOTRANSFERASE 18 IU/L (10-60); AST ASPARTATE AMINOTRANSFERASE 22 IU/L (10-42); BILIRUBIN,TOTAL 0.9 mg/dL (0.2-1.0); BUN - BLOOD UREA NITROGEN 14 mg/dL (6-20); CALCIUM 8.8 mg/dL (8.5-10.3); CARBON DIOXIDE - CO2 27 mmol/L (21-32); CHLORIDE 99 mmol/L (101-111); GFR - MDRD 80 (>89); GLUCOSE 106 mg/dL (70-100); LIPASE 29 U/L (22-51); SALICYLATE < 6.0 mg/dL; SODIUM 137 mmol/L (135-145); TOTAL PROTEIN 8.7 g/dL (6.7-8.2)
--- NOTE | 2018-07-10 21:14 | CT Report ---
Reason: aorta protocol, CP to back, meth use Procedure Date: 07/10/2018 Accession Number: [id number] / [id number] Procedure: CT - ANGIO CHEST W/WO CPT Code: FULL RESULT: EXAM: CT ANGIOGRAM CHEST WITHOUT AND WITH CONTRAST EXAM DATE: 07/10/2018 08:36 PM. CLINICAL HISTORY: Aorta protocol, chest pain to back, meth use. COMPARISON: None. TECHNIQUE: Routine helical imaging was performed through the chest without and with in the arterial phase. IV Contrast: 80 mL of Optiray 320. Reconstructions: Coronal 3-D MIP reconstructions.Sagittal and coronal. In accordance with CT protocol optimization, one or more of the following dose reduction techniques were utilized for this exam: automated exposure control, adjustment of mA and/or KV based on patient size, or use of iterative reconstructive technique. FINDINGS: Mediastinum: No thoracic aortic aneurysm or dissection. Normal heart size. No mediastinal or hilar lymphadenopathy. No pulmonary emboli are seen. Motion artifact limited. Lungs: Dependent atelectasis. No consolidation, pleural effusion or pneumothorax. Motion artifact limited. Upper abdomen: No acute findings. Bones: No acute bone findings. IMPRESSION: 1. No acute findings are seen. No thoracic aortic aneurysm or dissection. RADIA
[2018-07-10 21:26] VITALS: BP 112/98
[2018-07-10] MEDS ORDERED: PANTOPRAZOLE 40 MG TABLET PO STA (21:26)
== END 2018-07-10 21:34 | disposition home or self-care (01) ==
LOC: ED 19:45
DX: F15.10 Other stimulant abuse, uncomplicated (principal); F10.10 Alcohol abuse, uncomplicated; R07.2 Precordial pain; M54.9 Dorsalgia, unspecified; K21.9 Gastro-esophageal reflux disease without esophagitis; F17.200 Nicotine dependence, unspecified, uncomplicated
CPT/HCPCS: 36415; 71275; 80053; 80307; 80320; 80329; 83690; 84484; 85025; 93005; 96374; 96375; 99283; 99284; A9270; J1170; J2060; Q9967

== ENCOUNTER 2018-08-27 22:34 | Outpatient (CLI) | payer MEDICAID | END 2018-08-27 22:35 | disposition critical access hospital (66) | LOC: EMS 22:34 | PROVIDERS: ATTEND Surgery | DX: R51 Headache (principal); R11.0 Nausea; R06.02 Shortness of breath; Z59.0 Homelessness | CPT/HCPCS: A0425; A0429; A0999 ==

== ENCOUNTER 2018-08-27 22:48 | Emergency (ER) | payer MEDICAID ==
--- NOTE | 2018-08-27 23:34 | ED Physician Documentation ---
PD HPI HEADACHE - Stated complaint Stated Complaint: OBRIEN/NAUSEA - Chief complaint Chief Complaint: Neuro - History obtained from History obtained from: Patient - History of Present Illness Timing - onset: How many hours ago (2), Today Timing - onset during: Light activity (He claims he had on set abruptly of a headache to the right side of the head not associated with any injury. He has been having some frontal sinus pressure and congestion as well as a runny nose. He had onset of the headache 2 hours prior and called EMS for transport to the hospital. He denies any loss of vision. He denies any focal weaknesses. He denies history of migraines.) Timing - duration: Hours (2) Timing - details: Gradual onset, Still present in ED Worst headache ever?: Worst headache ever? Location: Front, Right Quality: Throbbing, Aching. No: Thunderclap Associated symptoms: Nausea. No: Fever, Stiff neck, Vomiting, Eye pain (denies light sensitivity), Vision changes Worsened by: No: Light, Noise Contributing factors: Recent illness (has URI symptoms and sinus congestion). No: Trauma Similar symptoms before: Has not had sx before Review of Systems Constitutional: denies: Fever, Chills Nose: reports: Rhinorrhea / runny nose, Congestion, Sinus pressure / pain Throat: denies: Sore throat Respiratory: denies: Cough GI: reports: Nausea. denies: Vomiting, Diarrhea Skin: denies: Rash, Lesions Neurologic: reports: Headache. denies: Focal weakness, Numbness, Syncope, Altered mental status, Head injury PD PAST MEDICAL HISTORY - Past Medical History Cardiovascular: None Respiratory: None Neuro: None Endocrine/Autoimmune: None GI: GERD HEENT: None Psych: None Musculoskeletal: Osteoarthritis - Past Surgical History Past Surgical History: No - Present Medications Home Medications: Ambulatory Orders Medication Instructions Recorded Confirmed Omeprazole [PriLOSEC] 20 mg PO DAILY #30 capsule 10/20/17 06/09/18 Fluconazole [Diflucan] 150 mg PO Q2D #3 tablet 06/09/18 Naproxen 375 mg PO BID #20 tablet 06/09/18 Tramadol HCl 50 mg PO Q6H PRN #20 tablet 06/09/18 Vits A and D/White Pet/Lanolin [A 1 applic TP BID #117 oint...g. 06/09/18 and D Ointment] Omeprazole 20 mg PO DAILY #30 tab.rap. 06/25/18 Omeprazole 20 mg PO DAILY #30 capsule. 07/10/18 Dexamethasone [Decadron] 4 mg PO DAILY #5 tablet 08/28/18 Famotidine 20 mg PO DAILY #30 tablet 08/28/18 Naproxen 375 mg PO BID #20 tablet 08/28/18 Ondansetron Odt [Zofran] 4 mg TL Q6H PRN #15 tablet 08/28/18 - Allergies Allergies/Adverse Reactions: Allergies Allergy/AdvReac Type Severity Reaction Status Date / Time No Known Drug Allergies Allergy Verified 08/27/18 22:54 - Social History Does the pt smoke?: Yes Smoking Status: Current every day smoker Does the pt drink ETOH?: Yes Does the pt have substance abuse?: Yes - Immunizations Immunizations are current?: No - POLST Patient has POLST: No PD ED PE NORMAL - Vitals Vital signs reviewed: Yes - General General: Alert and oriented X 3, No acute distress, Well developed/nourished - HEENT HEENT: Atraumatic - Neck Neck: Supple, no meningeal sign, No adenopathy - Cardiac Cardiac: RRR, No murmur - Respiratory Respiratory: Clear bilaterally - Derm Derm: Normal color, Warm and dry - Extremities Extremities: No tenderness to palpate, Normal ROM s pain - Neuro Neuro: Alert and oriented X 3, diplomatic interpreter/translator 2-12 intact, No motor deficit, No sensory deficit, Normal speech Eye Opening: Spontaneous Motor: Obeys Commands Verbal: Oriented GCS Score: 15 Results - Vitals Vitals: Vital Signs - 24 hr 08/27/18 08/28/18 08/28/18 22:51 01:36 04:37 Temperature 36.9 C Heart Rate 83 72 66 Respiratory 16 14 18 Rate Blood Pressure 119/103 H 125/74 146/85 H O2 Saturation 100 100 99 Oxygen O2 Source Room air - Labs Labs: Laboratory Tests 08/28/18 08/28/18 08/28/18 00:05 00:05 00:05 WBC 8.8 RBC 4.51 L Hgb 13.7 L Hct 38.7 L MCV 85.7 MCH 30.5 MCHC 35.5 RDW 14.0 Plt Count 278 MPV 7.2 L Neut # (Auto) 5.1 Lymph # (Auto) 2.4 [place] # (Auto) 0.6 Eos # (Auto) 0.6 Baso # (Auto) 0.0 Absolute Nucleated RBC 0.01 Nucleated RBC % 0.1 ESR 7 Sodium 136 Potassium 3.3 L Chloride 99 L Carbon Dioxide 26 Anion Gap 11.0 BUN 16 Creatinine 0.9 Estimated GFR (MDRD) 90 Glucose 123 H Calcium 9.2 Total Bilirubin 1.1 H AST 29 ALT 22 Alkaline Phosphatase 48 Total Protein 7.8 Albumin 4.0 Globulin 3.8 Albumin/Globulin Ratio 1.1 Lipase 31 Departure - Departure Disposition: 01 Home, Self Care Clinical Impression: Acute headache Qualifiers: Headache type: unspecified Intractability: not intractable Qualified Code(s): R51 - Headache Condition: Stable Record reviewed to determine appropriate education?: Yes Instructions: ED Cephalgia Unspecified Prescriptions: Dexamethasone [Decadron] 4 mg PO DAILY #5 tablet Famotidine 20 mg PO DAILY #30 tablet Naproxen 375 mg PO BID #20 tablet Ondansetron Odt [Zofran] 4 mg TL Q6H PRN #15 tablet PRN Reason: Nausea / Vomiting Comments: Stay hydrated. Use ondansetron along with naproxen for nausea and headache as needed for those symptoms. Use famotidine to reduce stomach acids since you have had some stomach pains in the past. Decadron steroid for inflammation daily for the next several days to help with the headache. Recheck if not impro [place] over the next couple of days. Discharge Date/Time: 08/28/18 04:37
[2018-08-27] MEDS ORDERED: SODIUM CHLORIDE 0.9% 1,000 ML IV ONE (23:55)
[2018-08-27] MEDS ORDERED: KETOROLAC 30 MG/ML VIAL IVP STA (23:55)
[2018-08-27] MEDS ORDERED: ACETAMINOPHEN 325 MG TABLET PO STA (23:55)
[2018-08-28 00:17] LABS: BASOPHILS % (AUTO) 0.4 %; EOSINOPHILS # (AUTO) 0.6 10^3/uL (0.0-0.7); EOSINOPHILS % (AUTO) 6.9 %; HGB - HEMOGLOBIN 13.7 g/dL (14.0-18.0); LYMPHOCYTES # (AUTO) 2.4 10^3/uL (1.5-3.5); LYMPHOCYTES % (AUTO) 27.6 %; MEAN CORPUSCULAR HEMOGLOBIN 30.5 pg (27.0-31.0); MEAN CORPUSCULAR HGB CONC 35.5 g/dL (32.0-36.0); MEAN CORPUSCULAR VOLUME 85.7 fL (80.0-94.0); MEAN PLATELET VOLUME 7.2 fL (7.4-11.4); MONOCYTES # (AUTO) 0.6 10^3/uL (0.0-1.0); MONOCYTES % (AUTO) 6.9 %; NEUTROPHILS # (AUTO) 5.1 10^3/uL (1.5-6.6); NEUTROPHILS % (AUTO) 58.2 %; PLT - PLATELET COUNT 278 10^3/uL (130-450); RED BLOOD COUNT 4.51 10^6/uL (4.70-6.10); WHITE BLOOD COUNT 8.8 x10^3/uL (4.8-10.8)
[2018-08-28 00:31] LABS: ALBUMIN/GLOBULIN RATIO 1.1 (1.0-2.2); BILIRUBIN,TOTAL 1.1 mg/dL (0.2-1.0); CALCIUM 9.2 mg/dL (8.5-10.3); CREATININE 0.9 mg/dL (0.6-1.2); TOTAL PROTEIN 7.8 g/dL (6.7-8.2)
[2018-08-28] MEDS ORDERED: HALOPERIDOL 5 MG/ML VIAL IVP ONE (02:10)
--- NOTE | 2018-08-28 04:19 | CT Report ---
Reason: headache onset today Procedure Date: 08/28/2018 Accession Number: [id number] / [id number] Procedure: CT - HEAD WO CPT Code: FULL RESULT: EXAM: CT HEAD EXAM DATE: 08/28/2018 01:03 AM. CLINICAL HISTORY: Headache onset today. COMPARISON: None. TECHNIQUE: Multiaxial CT images were obtained from the foramen magnum to the vertex. Reformats: Sagittal and coronal. IV contrast: None. In accordance with CT protocol optimization, one or more of the following dose reduction techniques were utilized for this exam: automated exposure control, adjustment of mA and/or KV based on patient size, or use of iterative reconstructive technique. FINDINGS: Parenchyma: No intraparenchymal hemorrhage. No evidence of mass, midline shift, or CT findings of infarction. Garcia-white differentiation is distinct. Extraaxial Spaces: Normal for age. No subdural or epidural collections identified. Ventricles: Normal in size and position. Sinuses and Orbits: Patchy opacification of multiple ethmoid air cells bilaterally. Mild mucosal thickening within the right frontal sinus. Mastoids appear unremarkable. Bones: No evidence of fracture or calvarial defect. Other: None. IMPRESSION: No acute or focal intracranial abnormality. RADIA
[2018-08-28 04:38] VITALS: BP 146/85
== END 2018-08-28 04:37 | disposition home or self-care (01) ==
LOC: EDUNIT# → ED 22:48
DX: R51 Headache (principal); F17.200 Nicotine dependence, unspecified, uncomplicated
CPT/HCPCS: 36415; 70450; 80053; 83690; 85025; 85651; 96361; 96374; 99283; A9270

== ENCOUNTER 2018-09-28 02:16 | Outpatient (CLI) | payer MEDICAID | END 2018-09-28 02:17 | disposition critical access hospital (66) | LOC: EMS 02:16 | PROVIDERS: ATTEND Surgery | DX: M79.672 Pain in left foot (principal); M79.671 Pain in right foot; R10.9 Unspecified abdominal pain ==

== ENCOUNTER 2018-09-28 02:50 | Emergency (ER) | payer MEDICAID ==
[2018-09-28] MEDS ORDERED: IBUPROFEN 600 MG TABLET PO STA (03:03)
[2018-09-28] MEDS ORDERED: ACETAMINOPHEN 325 MG TABLET PO STA (03:03)
--- NOTE | 2018-09-28 03:03 | ED Physician Documentation ---
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 No: Weakness, Numbness Recently seen: Emergency Dept - Treatment prior to arrival Treatment prior to arrival: none - Additional information Additional information: Pt is homeless and has been walking around all day. Review of Systems Unable to obtain: Uncooperative Constitutional: denies: Fever Skin: denies: Rash, Lesions, Abrasion (s), Laceration (s) Musculoskeletal: reports: Extremity pain, Pain with weight bearing PD PAST MEDICAL HISTORY - Past Medical History Past Medical History: Yes Cardiovascular: None Respiratory: None Neuro: None Endocrine/Autoimmune: None GI: GERD HEENT: None Psych: None Musculoskeletal: Osteoarthritis - Past Surgical History Past Surgical History: No - Present Medications Home Medications: Ambulatory Orders Medication Instructions Recorded Confirmed Omeprazole [PriLOSEC] 20 mg PO DAILY #30 capsule 10/20/17 06/09/18 Fluconazole [Diflucan] 150 mg PO Q2D #3 tablet 06/09/18 Naproxen 375 mg PO BID #20 tablet 06/09/18 Tramadol HCl 50 mg PO Q6H PRN #20 tablet 06/09/18 Vits A and D/White Pet/Lanolin [A 1 applic TP BID #117 oint...g. 06/09/18 and D Ointment] Omeprazole 20 mg PO DAILY #30 tab.rap. 06/25/18 Omeprazole 20 mg PO DAILY #30 capsule. 07/10/18 Dexamethasone [Decadron] 4 mg PO DAILY #5 tablet 08/28/18 Famotidine 20 mg PO DAILY #30 tablet 08/28/18 Naproxen 375 mg PO BID #20 tablet 08/28/18 Ondansetron Odt [Zofran] 4 mg TL Q6H PRN #15 tablet 08/28/18 - Allergies Allergies/Adverse Reactions: Allergies Allergy/AdvReac Type Severity Reaction Status Date / Time No Known Drug Allergies Allergy Verified 09/28/18 03:04 - Social History Does the pt smoke?: Yes Smoking Status: Current every day smoker Does the pt drink ETOH?: Yes Does the pt have substance abuse?: Yes - Immunizations Immunizations are current?: No - POLST Patient has POLST: No PD ED PE NORMAL - Vitals Vital signs reviewed: Yes - General General: Alert and oriented X 3, No acute distress - HEENT HEENT: Atraumatic - Neck Neck: Supple, no meningeal sign - Cardiac Cardiac: RRR - Respiratory Respiratory: No respiratory distress - Abdomen Abdomen: Soft, Non tender, Non distended - Male Male : Deferred - Rectal Rectal: Deferred - Derm Derm: Normal color, Warm and dry - Extremities Extremities: No deformity, No tenderness to palpate, Normal ROM s pain, No edema, No calf tenderness / cord - Neuro Neuro: Alert and oriented X 3, No motor deficit, No sensory deficit, Normal speech, Other (normal gait ) Eye Opening: Spontaneous Motor: Obeys Commands Verbal: Oriented GCS Score: 15 - Psych Psych: Other (agitated ) Results - Vitals Vitals: Vital Signs - 24 hr 09/28/18 03:00 Temperature 37.0 C Heart Rate 104 H Respiratory 18 Rate Blood Pressure 136/87 H O2 Saturation 100 Oxygen O2 Source Room air PD MEDICAL DECISION MAKING - ED course Complexity details: reviewed old records, considered differential, d/w patient ED course: 48 y/o M with bilateral foot pain from 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 Denies injury. Examination of feet is unremarkable. Pt agitated yelling about the timber feller in the ED but oriented and not acutely altered or intoxicated. No signs of trauma. Pt has no apparent emergency complaint. He is requesting viocodin. I do not feel this is appropriate. Given ibuprofen and tylenol for pain. Stable for discharge. Departure - Departure Disposition: 01 Home, Self Care Clinical Impression: Foot pain, bilateral Condition: Stable Record reviewed to determine appropriate education?: Yes Instructions: ED Muscle Pain Leg Cramps Follow-Up: your,doctor [Other] Comments: Your examination here tonight was normal. You can take tylenol and ibuprofen for your foot pain.
[2018-09-28 05:17] VITALS: BP 116/86
== END 2018-09-28 05:16 | disposition home or self-care (01) ==
LOC: EDUNIT# → ED 02:50
DX: M79.672 Pain in left foot (principal); M79.671 Pain in right foot; Z59.0 Homelessness; F17.200 Nicotine dependence, unspecified, uncomplicated
CPT/HCPCS: 99282; 99283; A9270

== ENCOUNTER 2018-09-29 03:32 | Outpatient (CLI) | payer MEDICAID | END 2018-09-29 03:33 | disposition critical access hospital (66) | LOC: EMS 03:32 | PROVIDERS: ATTEND Surgery | DX: R06.02 Shortness of breath (principal) ==

== ENCOUNTER 2018-09-29 03:47 | Emergency (ER) | payer MEDICAID ==
--- NOTE | 2018-09-29 04:00 | ED Physician Documentation ---
PD HPI CHEST PAIN - Stated complaint Stated Complaint: SOA - Chief complaint Chief Complaint: Resp - History obtained from History obtained from: Patient, EMS - History of Present Illness Timing - onset: How many days ago (He is says he has been hurting all over and has been walking around a lot for the last 5 days. He states he is homeless. He had done meth 5 days ago and has been feeling restless and difficulty sleeping and just walking around for the last 5 days. He states his feet and legs have gotten sore from that. He has had very slight baseline cough but no chest cold per se. He noted onset of some anterior chest pain today. He did not feel short of breath.) Timing - onset during: Light activity (walking) Timing - details: Gradual onset, Still present, Waxing and waning Quality: Aching, Stabbing, Pain. No: Pressure, Tightness Location: Substernal, Left chest Radiation: No: Jaw, Neck, Back Improved by: Rest Worsened by: Movement, Palpation. No: Inspiration Associated symptoms: Feeling faint / dizzy, General Weakness, Cough. No: Shortness of air, Palpitations Recently seen: Emergency Dept (Seen yesterday with a complaint of his feet hurting in his legs from having walked around too much. No particular tests or treatments were done here in the ER.) Review of Systems Constitutional: reports: Myalgias. denies: Fever, Chills Nose: denies: Rhinorrhea / runny nose, Sinus pressure / pain Throat: denies: Sore throat Respiratory: denies: Dyspnea, Cough, Wheezing GI: denies: Nausea, Vomiting, Diarrhea Neurologic: reports: Generalized weakness, Numbness (he says bottoms of feet hav e burning, he feels from walking too much.). denies: Focal weakness, Near syncope Psychiatric: reports: Insomnia (he says he has not slept for 5 days.). denies: Depressed, Suicidal PD PAST MEDICAL HISTORY - Past Medical History Past Medical History: Yes Cardiovascular: None Respiratory: None Neuro: None Endocrine/Autoimmune: None GI: GERD HEENT: None Psych: None Musculoskeletal: Osteoarthritis - Past Surgical History Past Surgical History: No - Present Medications Home Medications: Ambulatory Orders Medication Instructions Recorded Confirmed Omeprazole [PriLOSEC] 20 mg PO DAILY #30 capsule 10/20/17 06/09/18 Fluconazole [Diflucan] 150 mg PO Q2D #3 tablet 06/09/18 Naproxen 375 mg PO BID #20 tablet 06/09/18 Tramadol HCl 50 mg PO Q6H PRN #20 tablet 06/09/18 Vits A and D/White Pet/Lanolin [A 1 applic TP BID #117 oint...g. 06/09/18 and D Ointment] Omeprazole 20 mg PO DAILY #30 tab.rap. 06/25/18 Omeprazole 20 mg PO DAILY #30 capsule. 07/10/18 Dexamethasone [Decadron] 4 mg PO DAILY #5 tablet 08/28/18 Famotidine 20 mg PO DAILY #30 tablet 08/28/18 Naproxen 375 mg PO BID #20 tablet 08/28/18 Ondansetron Odt [Zofran] 4 mg TL Q6H PRN #15 tablet 08/28/18 - Allergies Allergies/Adverse Reactions: Allergies Allergy/AdvReac Type Severity Reaction Status Date / Time No Known Drug Allergies Allergy Verified 09/29/18 03:54 - Living Situation Living Arrangement: reports: Homeless - Social History Does the pt smoke?: Yes Smoking Status: Current every day smoker Does the pt drink ETOH?: Yes Does the pt have substance abuse?: Yes Substance Use and Type: Marijuana, Meth (used meth last 5 days ago, when his symptoms of insomnia and restlessness started. ) - Immunizations Immunizations are current?: No - POLST Patient has POLST: No PD ED PE NORMAL - Vitals Vital signs reviewed: Yes - General General: Alert and oriented X 3, No acute distress (but is having some troubles with staying on topic for question. ), Well developed/nourished - HEENT HEENT: Pharynx benign - Neck Neck: Supple, no meningeal sign, No adenopathy, No JVD - Cardiac Cardiac: RRR, No murmur - Respiratory Respiratory: Clear bilaterally - Abdomen Abdomen: Soft, Non tender - Male Male : Deferred - Rectal Rectal: Deferred - Back Back: No CVA TTP, No spinal TTP - Derm Derm: Normal color, Warm and dry - Extremities Extremities: No tenderness to palpate, Normal ROM s pain, No edema, No calf tenderness / cord - Neuro Neuro: Alert and oriented X 3 (is oriented and alert, but somewhat slow on structure of the sentences. Slight tangential. Denies self harm ideation. ), No motor deficit, Normal speech Results - Vitals Vitals: Vital Signs - 24 hr 09/29/18 09/29/18 09/29/18 03:50 04:30 04:51 Temperature 36.9 C Heart Rate 75 64 70 Respiratory 16 18 19 Rate Blood Pressure 130/93 H 129/93 H 129/93 H O2 Saturation 100 100 100 09/29/18 09/29/18 05:35 06:14 Temperature 36.3 C L 36.4 C L Heart Rate 84 74 Respiratory 20 14 Rate Blood Pressure 120/89 H 114/79 O2 Saturation 100 97 Oxygen O2 Source Room air - EKG (time done) 04:27 Rate: Rate (enter#) (75) Rhythm: NSR [place]: Normal Intervals: Normal CA QRS: Normal Ischemia: Normal ST segments. No: ST elevation c/w ischemia, ST depression - Labs Labs: Laboratory Tests 09/29/18 09/29/18 09/29/18 04:25 04:25 04:25 WBC 9.9 RBC 4.26 L Hgb 12.7 L Hct 37.3 L MCV 87.5 MCH 29.9 MCHC 34.2 RDW 14.0 Plt Count 228 MPV 7.5 Neut # (Auto) Not Reportable Lymph # (Auto) Not Reportable [place] # (Auto) Not Reportable Eos # (Auto) Not Reportable Baso # (Auto) Not Reportable Absolute Nucleated RBC Not Reportable Total Counted 100 Band Neuts % (Manual) 0 Abnorm Lymph % (Manual) 0 Nucleated RBC % Not Reportable Neutrophils # (Manual) 5.0 Lymphocytes # (Manual) 3.3 Monocytes # (Manual) 0.7 Eosinophils # (Manual) 0.8 H Basophils # (Manual) 0.1 Differential Comment MANUAL DIFFERENTIAL Platelet Estimate NORMAL (130-450,000) RBC Morph Micro Appear NORMAL APPEARANCE Sodium 137 Potassium 3.5 Chloride 103 Carbon Dioxide 24 Anion Gap 10.0 BUN 17 Creatinine 1.0 Estimated GFR (MDRD) 80 L Glucose 106 H Calcium 8.6 Total Bilirubin 0.8 AST 29 ALT 25 Alkaline Phosphatase 56 Total Creatine Kinase 914 H Troponin I < 0.04 Total Protein 7.6 Albumin 4.0 Globulin 3.6 Albumin/Globulin Ratio 1.1 Lipase 35 Urine Color Urine Clarity Urine pH Ur Specific Vance Urine Protein Urine Glucose (UA) Urine Ketones Urine Occult Blood Urine Nitrite Urine Bilirubin Urine Urobilinogen Ur Leukocyte Esterase Ur Microscopic Review Urine Culture Comments Urine Opiates Screen Ur Oxycodone Screen Urine Methadone Screen Ur Propoxyphene Screen Ur Barbiturates Screen Ur Tricyclics Screen Ur Phencyclidine Scrn Ur Amphetamine Screen U Methamphetamines Scrn U Benzodiazepines Scrn Urine Cocaine Screen U Cannabinoids Screen Ethyl Alcohol < 5.0 09/29/18 05:02 WBC RBC Hgb Hct MCV MCH MCHC RDW Plt Count MPV Neut # (Auto) Lymph # (Auto) [place] # (Auto) Eos # (Auto) Baso # (Auto) Absolute Nucleated RBC Total Counted Band Neuts % (Manual) Abnorm Lymph % (Manual) Nucleated RBC % Neutrophils # (Manual) Lymphocytes # (Manual) Monocytes # (Manual) Eosinophils # (Manual) Basophils # (Manual) Differential Comment Platelet Estimate RBC Morph Micro Appear Sodium Potassium Chloride Carbon Dioxide Anion Gap BUN Creatinine Estimated GFR (MDRD) Glucose Calcium Total Bilirubin AST ALT Alkaline Phosphatase Total Creatine Kinase Troponin I Total Protein Albumin Globulin Albumin/Globulin Ratio Lipase Urine Color YELLOW Urine Clarity CLEAR Urine pH 6.0 Ur Specific Vance 1.020 Urine Protein NEGATIVE Urine Glucose (UA) NEGATIVE Urine Ketones 15 H Urine Occult Blood NEGATIVE Urine Nitrite NEGATIVE Urine Bilirubin NEGATIVE Urine Urobilinogen 0.2 (NORMAL) Ur Leukocyte Esterase NEGATIVE Ur Microscopic Review NOT INDICATED Urine Culture Comments NOT INDICATED Urine Opiates Screen NEGATIVE Ur Oxycodone Screen NEGATIVE Urine Methadone Screen NEGATIVE Ur Propoxyphene Screen NEGATIVE Ur Barbiturates Screen NEGATIVE Ur Tricyclics Screen NEGATIVE Ur Phencyclidine Scrn NEGATIVE Ur Amphetamine Screen POSITIVE H U Methamphetamines Scrn POSITIVE H U Benzodiazepines Scrn NEGATIVE Urine Cocaine Screen NEGATIVE U Cannabinoids Screen NEGATIVE Ethyl Alcohol - Rads (name of study) chest xray Radiology: Prelim report reviewed (no acute process), EMP read contemporaneously, See rad report PD MEDICAL DECISION MAKING - ED course Complexity details: considered differential (Seems likely musculoskeletal pain. He does not have any calf tenderness no swelling. He states he has been walking around a lot the last 5 days being homeless nowhere to go. He does walk about a lot. He does seem to have a little bit of confusion of thought at this point which I would think would be consistent with meth use. He does not appear significantly dehydrated. However given his symptoms, I would believe it likely that they are from walking too much and not sleeping. Can check for CK to ensure not rhabdo. Does not sound like ACS, but can get ECG and Troponin. ), d/w patient Departure - Departure Disposition: 01 Home, Self Care Clinical Impression: Methamphetamine abuse, Chest tightness, Dehydration after exertion Condition: Stable Record reviewed to determine appropriate education?: Yes Instructions: ED Chest Pain Atypical Unkn Cause Comments: Stay well-hydrated. You could use some naproxen twice daily for inflammation and pain. Add Tylenol to that as needed. Avoid recreational drug use particularly math. Avoid excess walking over the next several days to week to reduce some of the pain in your legs.
[2018-09-29] MEDS ORDERED: SODIUM CHLORIDE 0.9% 1,000 ML IV ONE (04:15)
[2018-09-29] MEDS ORDERED: ACETAMINOPHEN 1,000 MG/100 ML 100 ML IV STA (04:16)
[2018-09-29] MEDS ORDERED: KETOROLAC 30 MG/ML VIAL IVP STA (04:16)
[2018-09-29 04:30] LABS: BASOPHILS % (AUTO) 0.2 %; EOSINOPHILS % (AUTO) 12.3 %; HGB - HEMOGLOBIN 12.7 g/dL (14.0-18.0); LYMPHOCYTES % (AUTO) 30.2 %; MEAN CORPUSCULAR HEMOGLOBIN 29.9 pg (27.0-31.0); MEAN CORPUSCULAR HGB CONC 34.2 g/dL (32.0-36.0); MEAN CORPUSCULAR VOLUME 87.5 fL (80.0-94.0); MEAN PLATELET VOLUME 7.5 fL (7.4-11.4); MONOCYTES % (AUTO) 11.6 %; NEUTROPHILS % (AUTO) 45.7 %; PLT - PLATELET COUNT 228 10^3/uL (130-450); RED BLOOD COUNT 4.26 10^6/uL (4.70-6.10); WHITE BLOOD COUNT 9.9 x10^3/uL (4.8-10.8)
[2018-09-29 04:32] LABS: ABNORMAL LYMPHS % (MANUAL) 0 %; BAND NEUTROPHILS % (MANUAL) 0 %
[2018-09-29 04:44] LABS: ALBUMIN/GLOBULIN RATIO 1.1 (1.0-2.2); ALKALINE PHOSPHATASE 56 IU/L (42-121); ALT ALANINE AMINOTRANSFERASE 25 IU/L (10-60); AST ASPARTATE AMINOTRANSFERASE 29 IU/L (10-42); BILIRUBIN,TOTAL 0.8 mg/dL (0.2-1.0); BUN - BLOOD UREA NITROGEN 17 mg/dL (6-20); CALCIUM 8.6 mg/dL (8.5-10.3); CARBON DIOXIDE - CO2 24 mmol/L (21-32); CHLORIDE 103 mmol/L (101-111); CK- CREATINE KINASE 914 IU/L (22-269); GFR - MDRD 80 (>89); GLUCOSE 106 mg/dL (70-100); LIPASE 35 U/L (22-51); SODIUM 137 mmol/L (135-145); TOTAL PROTEIN 7.6 g/dL (6.7-8.2)
--- NOTE | 2018-09-29 04:45 | XRAY Report ---
Reason: chest pain Procedure Date: 09/29/2018 Accession Number: [id number] / [id number] Procedure: XR - Chest 1 View X-Ray CPT Code: 11369 FULL RESULT: EXAM: CHEST RADIOGRAPHY EXAM DATE: 09/29/2018 04:35 AM. CLINICAL HISTORY: Chest pain. COMPARISON: CHEST 2 VIEW 06/04/2018 11:41 PM. TECHNIQUE: 1 view. FINDINGS: Lungs/Pleura: No alveolar consolidation or pleural effusion seen. No pneumothorax. Mediastinum: Within exam limitations, the cardiomediastinal contour is normal. Other: None. IMPRESSION: 1. No acute abnormality seen in the chest. RADIA
[2018-09-29 04:48] LABS: BASOPHILS # (MANUAL) 0.1 10^3/uL (0-0.1); BASOPHILS % (MANUAL) 1 %; DIFFERENTIAL COMMENT MANUAL DIFFERENTIAL; EOSINOPHILS # (MANUAL) 0.8 10^3/uL (0-0.7); LYMPHOCYTES # (MANUAL) 3.3 10^3/uL (1.5-3.5); LYMPHOCYTES % (MANUAL) 33 %; MONOCYTES # (MANUAL) 0.7 10^3/uL (0.0-1.0); NEUTROPHILS % (MANUAL) 51 %; PLATELET ESTIMATE, MANUAL NORMAL (130-450,000) (NORMAL); RBC MORPHOLOGY (MULTIPLE) NORMAL APPEARANCE (NORMAL)
[2018-09-29 05:14] LABS: MUDS CUTOFF CONCENTRATIONS CUTOFF CONC BELOW:
[2018-09-29 05:17] LABS: BILIRUBIN,URINE NEGATIVE (NEGATIVE); GLUCOSE, URINE (UA) NEGATIVE (NEGATIVE); KETONES,URINE (UA) 15 mg/dL (NEGATIVE); LEUKOCYTE ESTERASE, URINE NEGATIVE (NEGATIVE); NITRITE,URINE NEGATIVE (NEGATIVE); OCCULT BLOOD,URINE NEGATIVE (NEGATIVE); PROTEIN,URINE NEGATIVE (NEGATIVE); UROBILINOGEN,URINE 0.2 (NORMAL) E.U./dL (NORMAL)
[2018-09-29 05:18] LABS: CLARITY,URINE CLEAR (CLEAR)
[2018-09-29 05:26] LABS: COCAINE SCREEN URINE NEGATIVE (NEGATIVE); METHAMPHETAMINES SCREEN, URINE POSITIVE (NEGATIVE); OPIATE SCREEN, URINE NEGATIVE (NEGATIVE)
[2018-09-29 05:27] LABS: AMPHETAMINE SCREEN,URINE POSITIVE (NEGATIVE); BENZODIAZEPINES SCREEN, URINE NEGATIVE (NEGATIVE); METHADONE SCREEN, URINE NEGATIVE (NEGATIVE); OXYCODONE SCREEN, URINE NEGATIVE (NEGATIVE); PROPOXYPHENE SCREEN, URINE NEGATIVE (NEGATIVE); TRICYCLIC ANTIDEPRESSANT,URINE NEGATIVE (NEGATIVE)
[2018-09-29 07:04] VITALS: BP 109/71
== END 2018-09-29 07:03 | disposition home or self-care (01) ==
LOC: EDUNIT# → ED 03:47
DX: F15.10 Other stimulant abuse, uncomplicated (principal); R07.89 Other chest pain; E86.0 Dehydration; Z59.0 Homelessness; F17.200 Nicotine dependence, unspecified, uncomplicated
CPT/HCPCS: 36415; 71045; 80053; 80306; 80320; 81003; 82550; 83690; 84484; 85025; 93005; 96361; 96374; 96375; 99284; J0131; 81001; 87086

== ENCOUNTER 2018-10-23 04:18 | Outpatient (CLI) | payer MEDICAID | END 2018-10-23 04:19 | disposition critical access hospital (66) | LOC: EMS 04:18 | PROVIDERS: ATTEND Surgery | DX: R42 Dizziness and giddiness (principal); M79.672 Pain in left foot; M79.671 Pain in right foot | CPT/HCPCS: A0425; A0429; A0999 ==

== ENCOUNTER 2018-10-23 04:33 | Emergency (ER) | payer MEDICAID ==
[2018-10-23 04:39] VITALS: BP 129/89
--- NOTE | 2018-10-23 05:05 | ED Physician Documentation ---
History of Present Illness - Stated complaint Stated Complaint: DIZZY/FOOT PAIN - Chief complaint Chief Complaint: General - History obtained from History obtained from: Patient, EMS - History of Present Illness Timing: How many days ago (2-3) - Additonal information Additional information: BIBA for c/o dizziness and bilateral foot pain. Patient is drowsy on my HPI, frequently needs to be woken. only c/o bilateral foot pain on my HPI. also says he is out of omeprazole and needs new rx for this. frequent ED visits with similar presentation (varying and vague c/o, frequently involving foot pain) Review of Systems Constitutional: reports: Reviewed and negative Respiratory: reports: Reviewed and negative GI: reports: Reviewed and negative Musculoskeletal: reports: Extremity pain, Pain with weight bearing PD PAST MEDICAL HISTORY - Past Medical History Past Medical History: Yes Cardiovascular: None Respiratory: None Neuro: None Endocrine/Autoimmune: None GI: GERD HEENT: None Psych: None Musculoskeletal: Osteoarthritis - Past Surgical History Past Surgical History: No - Present Medications Home Medications: Ambulatory Orders Medication Instructions Recorded Confirmed Omeprazole [PriLOSEC] 20 mg PO DAILY #30 capsule 10/20/17 06/09/18 Fluconazole [Diflucan] 150 mg PO Q2D #3 tablet 06/09/18 Naproxen 375 mg PO BID #20 tablet 06/09/18 Tramadol HCl 50 mg PO Q6H PRN #20 tablet 06/09/18 Vits A and D/White Pet/Lanolin [A 1 applic TP BID #117 oint...g. 06/09/18 and D Ointment] Omeprazole 20 mg PO DAILY #30 tab.rap. 06/25/18 Omeprazole 20 mg PO DAILY #30 capsule. 07/10/18 Famotidine 20 mg PO DAILY #30 tablet 08/28/18 Naproxen 375 mg PO BID #20 tablet 08/28/18 Ondansetron Odt [Zofran] 4 mg TL Q6H PRN #15 tablet 08/28/18 dexAMETHasone [Decadron] 4 mg PO DAILY #5 tablet 08/28/18 Omeprazole 20 mg PO DAILY #20 capsule. 10/23/18 - Allergies Allergies/Adverse Reactions: Allergies Allergy/AdvReac Type Severity Reaction Status Date / Time No Known Drug Allergies Allergy Verified 09/29/18 03:54 - Social History Does the pt smoke?: Yes Smoking Status: Current every day smoker Does the pt drink ETOH?: Yes Does the pt have substance abuse?: Yes - Immunizations Immunizations are current?: No - POLST Patient has POLST: No PD ED PE NORMAL - Vitals Vital signs reviewed: Yes - General General: Well developed/nourished. No: Alert and oriented X 3 (drowsy, falls asleep rapidly, but answers appropriately when awakened. polite, calm, cooperative) - HEENT HEENT: PERRL, EOMI, Moist mucous membranes - Cardiac Cardiac: RRR, No murmur - Respiratory Respiratory: No respiratory distress, Clear bilaterally - Abdomen Abdomen: Soft, Non tender - Derm Derm: Normal color, Warm and dry - Extremities Extremities: No edema, Other (soles of feet have mild erythema and clear blisters at mid/forefoot) Results - Vitals Vitals: Vital Signs - 24 hr 10/23/18 10/23/18 04:31 04:45 Temperature 36.3 C L Heart Rate 66 58 L Respiratory 16 12 Rate Blood Pressure 129/89 H 129/89 H O2 Saturation 97 100 Oxygen O2 Source Room air - Labs Labs: Laboratory Tests 10/23/18 10/23/18 05:55 05:55 WBC 7.4 RBC 4.74 Hgb 14.3 Hct 43.0 MCV 90.8 MCH 30.1 MCHC 33.2 RDW 14.0 Plt Count 293 MPV 7.3 L Neut # (Auto) 2.8 Lymph # (Auto) 3.0 [place] # (Auto) 0.8 Eos # (Auto) 0.8 H Baso # (Auto) 0.0 Absolute Nucleated RBC 0.00 Nucleated RBC % 0.0 Sodium 139 Potassium 4.0 Chloride 103 Carbon Dioxide 24 Anion Gap 12.0 BUN 17 Creatinine 1.0 Estimated GFR (MDRD) 80 L Glucose 94 Calcium 9.3 Ethyl Alcohol < 5.0 PD MEDICAL DECISION MAKING - ED course Complexity details: reviewed old records, reviewed results, re-evaluated patient, considered differential, d/w patient ED course: slept in ED few hours, provided breakfast in AM, increasingly awake and alert and w/o further c/o from foot pain. he was comfortable w/ discharge and had no questions when dispositioned Departure - Departure Disposition: 01 Home, Self Care Clinical Impression: Foot pain, bilateral Condition: Good Instructions: ED Blister Follow-Up: [facility] [Provider Group] [facility] [Provider Group] Prescriptions: Omeprazole 20 mg PO DAILY #20 capsule.dr Discharge Date/Time: 10/23/18 09:41
[2018-10-23 06:01] LABS: BASOPHILS % (AUTO) 0.4 %; EOSINOPHILS # (AUTO) 0.8 10^3/uL (0.0-0.7); EOSINOPHILS % (AUTO) 10.2 %; HGB - HEMOGLOBIN 14.3 g/dL (14.0-18.0); LYMPHOCYTES % (AUTO) 40.6 %; MEAN CORPUSCULAR HEMOGLOBIN 30.1 pg (27.0-31.0); MEAN CORPUSCULAR HGB CONC 33.2 g/dL (32.0-36.0); MEAN CORPUSCULAR VOLUME 90.8 fL (80.0-94.0); MEAN PLATELET VOLUME 7.3 fL (7.4-11.4); MONOCYTES # (AUTO) 0.8 10^3/uL (0.0-1.0); MONOCYTES % (AUTO) 10.8 %; NEUTROPHILS # (AUTO) 2.8 10^3/uL (1.5-6.6); PLT - PLATELET COUNT 293 10^3/uL (130-450); RED BLOOD COUNT 4.74 10^6/uL (4.70-6.10); WHITE BLOOD COUNT 7.4 x10^3/uL (4.8-10.8)
[2018-10-23 06:09] LABS: BUN - BLOOD UREA NITROGEN 17 mg/dL (6-20); CALCIUM 9.3 mg/dL (8.5-10.3); CARBON DIOXIDE - CO2 24 mmol/L (21-32); CHLORIDE 103 mmol/L (101-111); GFR - MDRD 80 (>89); GLUCOSE 94 mg/dL (70-100); SODIUM 139 mmol/L (135-145)
== END 2018-10-23 09:41 | disposition home or self-care (01) ==
LOC: EDUNIT# → ED 04:33
DX: M79.671 Pain in right foot (principal); M79.672 Pain in left foot; R42 Dizziness and giddiness; R40.0 Somnolence; R23.8 Other skin changes; F17.200 Nicotine dependence, unspecified, uncomplicated
CPT/HCPCS: 36415; 80048; 80320; 85025; 99283

== ENCOUNTER 2018-11-23 10:56 | Outpatient (CLI) | payer MEDICAID | END 2018-11-23 10:57 | disposition critical access hospital (66) | LOC: EMS 10:56 | PROVIDERS: ATTEND Surgery | DX: R41.0 Disorientation, unspecified (principal); Z59.0 Homelessness | CPT/HCPCS: A0425; A0429; A0999 ==

== ENCOUNTER 2018-11-23 11:12 | Emergency (ER) | payer MEDICAID ==
--- NOTE | 2018-11-23 12:32 | CT Report ---
Reason: ALOC Procedure Date: 11/23/2018 Accession Number: [id number] / [id number] Procedure: CT - HEAD WO CPT Code: FULL RESULT: EXAM: CT HEAD EXAM DATE: 11/23/2018 12:25 PM. CLINICAL HISTORY: Altered level of consciousness. COMPARISON: HEAD W/O 08/28/2018 12:55 AM. TECHNIQUE: Multiaxial CT images were obtained from the foramen magnum to the vertex. Reformats: Sagittal and coronal. IV contrast: None. In accordance with CT protocol optimization, one or more of the following dose reduction techniques were utilized for this exam: automated exposure control, adjustment of mA and/or KV based on patient size, or use of iterative reconstructive technique. FINDINGS: Parenchyma: No intraparenchymal hemorrhage. No evidence of mass, midline shift, or CT findings of infarction. Garcia-white differentiation is distinct. Extraaxial Spaces: Normal for age. No subdural or epidural collections identified. Ventricles: Normal in size and position. Sinuses and Orbits: Probable partially imaged mucosal retention cyst within posterior aspect of left maxillary antrum. Bones: No evidence of fracture or calvarial defect. Other: None. IMPRESSION: No acute abnormality demonstrated. RADIA
[2018-11-23 12:39] LABS: BASOPHILS % (AUTO) 0.4 %; EOSINOPHILS # (AUTO) 0.3 10^3/uL (0.0-0.7); EOSINOPHILS % (AUTO) 3.5 %; HGB - HEMOGLOBIN 14.5 g/dL (14.0-18.0); LYMPHOCYTES # (AUTO) 2.1 10^3/uL (1.5-3.5); MEAN CORPUSCULAR HEMOGLOBIN 30.1 pg (27.0-31.0); MEAN CORPUSCULAR HGB CONC 33.6 g/dL (32.0-36.0); MEAN CORPUSCULAR VOLUME 89.4 fL (80.0-94.0); MEAN PLATELET VOLUME 9.2 fL (7.4-11.4); MONOCYTES # (AUTO) 0.6 10^3/uL (0.0-1.0); MONOCYTES % (AUTO) 8.2 %; NEUTROPHILS # (AUTO) 4.7 10^3/uL (1.5-6.6); NEUTROPHILS % (AUTO) 60.5 %; PLT - PLATELET COUNT 318 10^3/uL (130-450); RED BLOOD COUNT 4.82 10^6/uL (4.70-6.10); RED CELL DISTRIBUTION WIDTH 12.8 % (12.0-15.0); WHITE BLOOD COUNT 7.8 x10^3/uL (4.8-10.8)
[2018-11-23 12:57] LABS: ACETAMINOPHEN < 10 ug/mL (10-30); ALBUMIN 4.3 g/dL (3.2-5.5); ALKALINE PHOSPHATASE 58 IU/L (42-121); ALT ALANINE AMINOTRANSFERASE 29 IU/L (10-60); AST ASPARTATE AMINOTRANSFERASE 28 IU/L (10-42); BUN - BLOOD UREA NITROGEN 18 mg/dL (6-20); CALCIUM 9.3 mg/dL (8.5-10.3); CARBON DIOXIDE - CO2 22 mmol/L (21-32); CHLORIDE 103 mmol/L (101-111); CREATININE 0.9 mg/dL (0.6-1.2); GFR - MDRD 90 (>89); GLUCOSE 100 mg/dL (70-100); LIPASE 36 U/L (22-51); SALICYLATE < 6.0 mg/dL; SODIUM 139 mmol/L (135-145); TOTAL PROTEIN 8.6 g/dL (6.7-8.2)
--- NOTE | 2018-11-23 13:21 | ED Physician Documentation ---
PD HPI ALTERED MENTAL STATUS - Stated complaint Stated Complaint: CONFUSED - Chief complaint Chief Complaint: Neuro - History obtained from History obtained from: Patient, EMS - History of Present Illness Timing - onset: Today Timing - details: Other (unknown) Quality / character: Confused (law enforcement per EMS states that he was confused on scene), Disoriented. No: Less responsive, Unresponsive, Memory Loss, Agitated, Combative, Hallucinating Associated symptoms: No: Fever, Headache, Stiff neck, Dyspnea, Cough, NVD, Ur inary sx, General weakness, Focal weakness, Seizure activity, Syncope Contributing factors: Substance abuse (meth, etoh) [place] status: Alert and oriented X 3 Recently seen: Not recently seen Review of Systems Ten Systems: 10 systems reviewed and negative Constitutional: denies: Fever, Chills Respiratory: denies: Cough, Hemoptysis, Wheezing GI: denies: Nausea, Vomiting, Diarrhea Skin: denies: Rash Musculoskeletal: denies: Neck pain, Back pain Neurologic: denies: Headache PD PAST MEDICAL HISTORY - Past Medical History Past Medical History: Yes Cardiovascular: None Respiratory: None Neuro: None Endocrine/Autoimmune: None GI: GERD HEENT: None Psych: None Musculoskeletal: Osteoarthritis - Past Surgical History Past Surgical History: No - Present Medications Home Medications: Ambulatory Orders Medication Instructions Recorded Confirmed No Known Home Medications 11/23/18 11/23/18 - Allergies Allergies/Adverse Reactions: Allergies Allergy/AdvReac Type Severity Reaction Status Date / Time No Known Drug Allergies Allergy Verified 11/23/18 11:28 - Social History Does the pt smoke?: Yes Smoking Status: Current every day smoker Does the pt drink ETOH?: Yes Does the pt have substance abuse?: Yes Substance Use and Type: Meth - Immunizations Immunizations are current?: No - POLST Patient has POLST: No PD ED PE NORMAL - Vitals Vital signs reviewed: Yes - General General: Alert and oriented X 3, No acute distress, Well developed/nourished - HEENT HEENT: Atraumatic, PERRL, Ears normal, Moist mucous membranes, Pharynx benign - Neck Neck: Supple, no meningeal sign, No bony TTP - Cardiac Cardiac: RRR, Strong equal pulses - Respiratory Respiratory: No respiratory distress, Clear bilaterally - Abdomen Abdomen: Soft, Non tender, Non distended - Back Back: No CVA TTP, No spinal TTP - Derm Derm: Warm and dry, No rash - Extremities Extremities: Normal ROM s pain, No edema - Neuro Neuro: Alert and oriented X 3, project management it specialist 2-12 intact, No motor deficit, No sensory deficit, Normal speech Eye Opening: Spontaneous Motor: Obeys Commands Verbal: Oriented GCS Score: 15 - Psych Psych: Normal mood, Normal affect Results - Vitals Vitals: Vital Signs - 24 hr 11/23/18 11/23/18 11:12 13:33 Temperature 37.1 C 36.9 C Heart Rate 88 91 Respiratory 18 20 Rate Blood Pressure 133/102 H 141/88 H O2 Saturation 100 100 Oxygen O2 Source Room air - Labs Labs: Laboratory Tests 11/23/18 11/23/18 11/23/18 12:30 12:30 12:30 WBC 7.8 RBC 4.82 Hgb 14.5 Hct 43.1 MCV 89.4 MCH 30.1 MCHC 33.6 RDW 12.8 Plt Count 318 MPV 9.2 Neut # (Auto) 4.7 Lymph # (Auto) 2.1 [place] # (Auto) 0.6 Eos # (Auto) 0.3 Baso # (Auto) 0.0 Absolute Nucleated RBC 0.00 Nucleated RBC % 0.0 Sodium 139 Potassium 3.1 L Chloride 103 Carbon Dioxide 22 Anion Gap 14.0 H BUN 18 Creatinine 0.9 Estimated GFR (MDRD) 90 Glucose 100 Calcium 9.3 Total Bilirubin 1.0 AST 28 ALT 29 Alkaline Phosphatase 58 Total Protein 8.6 H Albumin 4.3 Globulin 4.3 H Albumin/Globulin Ratio 1.0 Lipase 36 TSH 0.72 Salicylates < 6.0 Acetaminophen < 10 L Ethyl Alcohol < 5.0 - Rads (name of study) head Ct Radiology: Prelim report reviewed, EMP read contemporaneously, See rad report (no acute abnormality.) PD MEDICAL DECISION MAKING - ED course Complexity details: reviewed results, re-evaluated patient, considered differential, d/w patient ED course: Mental status cleared upon arrival to the emergency department. Speaking clearly and coherently. No acute findings on head CT or laboratory testing. Ambulating without difficulty. No complaints at the current time. Patient counseled regarding signs and symptoms for which I believe and urgent re- evaluation would be necessary. Patient with good understanding of and agreement to plan and is comfortable going home at this time This document was made in part using voice recognition software. While efforts are made to proofread this document, sound alike and grammatical errors may occur. Departure - Departure Disposition: 01 Home, Self Care Clinical Impression: Methamphetamine abuse Condition: Good Instructions: ED Drug Abuse General Follow-Up: your,doctor in 3 days [Other] Comments: Return if you worsen. stop using methamphetamine and alcohol. Discharge Date/Time: 11/23/18 13:38
[2018-11-23 13:34] VITALS: BP 141/88
== END 2018-11-23 13:38 | disposition home or self-care (01) ==
LOC: EDUNIT# → ED 11:12
DX: F15.10 Other stimulant abuse, uncomplicated (principal); F17.200 Nicotine dependence, unspecified, uncomplicated
CPT/HCPCS: 36415; 70450; 80053; 80307; 80320; 80329; 83690; 84443; 85025; 99283; 99284

== ENCOUNTER 2018-12-05 06:56 | Emergency (ER) | payer MEDICAID ==
[2018-12-05] MEDS ORDERED: LIDOCAINE VISCOUS 2% 15 ML UDC MM STA (07:15)
[2018-12-05] MEDS ORDERED: PHENobarb/HYOSCY/ATROPINE/SCOP 5 ML SYRINGE PO STA (07:15)
[2018-12-05] MEDS ORDERED: MAG HYDROX/AL HYDROX/SIMETH 30 ML UDC PO STA (07:15)
--- NOTE | 2018-12-05 07:18 | ED Physician Documentation ---
History of Present Illness - Stated complaint Stated Complaint: ABD PX - Chief complaint Chief Complaint: Abd Pain - History obtained from History obtained from: Patient - History of Present Illness Timing: Today Pain level max: 10 Pain level now: 10 - Additonal information Additional information: 48-year-old male presents to the emergency department stating that he has chest and abdominal pain. Started after eating breakfast. Has not been taking his Prilosec. Describes it as a burning pain. Has had some nausea but no vomiting or diarrhea. Nothing makes it better or worse. Feels similar to the GERD that he has had in the past. No fevers. No recent travel. Review of Systems Constitutional: denies: Fever, Chills GI: denies: Nausea, Vomiting, Diarrhea Skin: denies: Rash Musculoskeletal: denies: Neck pain, Back pain Neurologic: denies: Headache PD PAST MEDICAL HISTORY - Past Medical History Cardiovascular: None Respiratory: None Neuro: None Endocrine/Autoimmune: None GI: GERD HEENT: None Psych: None Musculoskeletal: Osteoarthritis - Past Surgical History Past Surgical History: No - Present Medications Home Medications: Ambulatory Orders Medication Instructions Recorded Confirmed Omeprazole 20 mg PO DAILY #30 capsule. 12/05/18 - Allergies Allergies/Adverse Reactions: Allergies Allergy/AdvReac Type Severity Reaction Status Date / Time No Known Drug Allergies Allergy Verified 12/05/18 07:05 - Social History Does the pt smoke?: Yes Smoking Status: Current every day smoker Does the pt drink ETOH?: Yes Does the pt have substance abuse?: Yes - Immunizations Immunizations are current?: No - POLST Patient has POLST: No PD ED PE NORMAL - Vitals Vital signs reviewed: Yes - General General: Alert and oriented X 3, No acute distress, Well developed/nourished - HEENT HEENT: PERRL, Moist mucous membranes - Neck Neck: Supple, no meningeal sign - Cardiac Cardiac: RRR, Strong equal pulses - Respiratory Respiratory: No respiratory distress, Clear bilaterally - Abdomen Abdomen: Soft, Non distended, Other (Mild tender to palpation epigastric without any peritoneal signs) - Back Back: No CVA TTP, No spinal TTP - Derm Derm: Warm and dry - Extremities Extremities: No edema - Neuro Neuro: Alert and oriented X 3 - Psych Psych: Normal mood, Normal affect Results - Vitals Vitals: Vital Signs - 24 hr 12/05/18 12/05/1819 07:02 07:08 08:20 Temperature 36.0 C L 36.4 C L Heart Rate 88 71 67 Respiratory 19 16 Rate Blood Pressure 155/103 H 133/90 H O2 Saturation 99 100 96 Oxygen O2 Source Room air - EKG (time done) 0707 Rate: Rate (enter#) Rhythm: NSR [place]: Normal Intervals: Normal [place] QRS: Normal Ischemia: Normal ST segments - Labs Labs: Laboratory Tests 12/05/18 12/05/18 12/05/18 07:29 07:29 07:29 WBC 6.8 RBC 4.76 Hgb 14.4 Hct 42.4 MCV 89.1 MCH 30.3 MCHC 34.0 RDW 12.7 Plt Count 300 MPV 8.9 Neut # (Auto) 3.4 Lymph # (Auto) 2.3 [place] # (Auto) 0.6 Eos # (Auto) 0.5 Baso # (Auto) 0.0 Absolute Nucleated RBC 0.00 Nucleated RBC % 0.0 Sodium 142 Potassium 3.5 Chloride 103 Carbon Dioxide 27 Anion Gap 12.0 BUN 17 Creatinine 1.2 Estimated GFR (MDRD) 65 L Glucose 113 H Calcium 9.0 Total Bilirubin 0.7 AST 20 ALT 20 Alkaline Phosphatase 50 Troponin I High Sens 6.8 Total Protein 7.3 Albumin 3.7 Globulin 3.6 Albumin/Globulin Ratio 1.0 Lipase 45 - Rads (name of study) cxr Radiology: Prelim report reviewed, EMP read contemporaneously, See rad report (no acute abnormality.) PD MEDICAL DECISION MAKING - ED course Complexity details: reviewed results, re-evaluated patient, considered differential, d/w patient ED course: Symptoms resolved with GI cocktail. No acute findings on EKG, laboratory testing. Patient is well-appearing, nontoxic. Will place on Pepcid for home and follow-up with his doctor. Patient counseled regarding signs and symptoms for which I believe and urgent re-evaluation would be necessary. Patient with good understanding of and agreement to plan and is comfortable going home at this time This document was made in part using voice recognition software. While efforts are made to proofread this document, sound alike and grammatical errors may occur. Departure - Departure Disposition: 01 Home, Self Care Clinical Impression: GERD (gastroesophageal reflux disease) Qualifiers: Esophagitis presence: esophagitis presence not specified Qualified Code(s): K21.9 - Gastro-esophageal reflux disease without esophagitis Condition: Good Instructions: ED GERD Follow-Up: your,doctor in 1 week [Other] Prescriptions: Omeprazole 20 mg PO DAILY #30 capsule. Comments: Return if you worsen. Take your medications as prescribed.
[2018-12-05 07:37] LABS: BASOPHILS % (AUTO) 0.3 %; EOSINOPHILS # (AUTO) 0.5 10^3/uL (0.0-0.7); EOSINOPHILS % (AUTO) 7.2 %; HGB - HEMOGLOBIN 14.4 g/dL (14.0-18.0); LYMPHOCYTES # (AUTO) 2.3 10^3/uL (1.5-3.5); LYMPHOCYTES % (AUTO) 33.9 %; MEAN CORPUSCULAR HEMOGLOBIN 30.3 pg (27.0-31.0); MEAN CORPUSCULAR VOLUME 89.1 fL (80.0-94.0); MEAN PLATELET VOLUME 8.9 fL (7.4-11.4); MONOCYTES # (AUTO) 0.6 10^3/uL (0.0-1.0); MONOCYTES % (AUTO) 8.8 %; NEUTROPHILS # (AUTO) 3.4 10^3/uL (1.5-6.6); NEUTROPHILS % (AUTO) 49.5 %; PLT - PLATELET COUNT 300 10^3/uL (130-450); RED BLOOD COUNT 4.76 10^6/uL (4.70-6.10); RED CELL DISTRIBUTION WIDTH 12.7 % (12.0-15.0); WHITE BLOOD COUNT 6.8 x10^3/uL (4.8-10.8)
--- NOTE | 2018-12-05 07:53 | XRAY Report ---
Reason: chest pain Procedure Date: 12/05/2018 Accession Number: [id number] / [id number] Procedure: XR - Chest 1 View X-Ray CPT Code: 15513 FULL RESULT: EXAM: CHEST RADIOGRAPHY EXAM DATE: 12/05/2018 07:38 AM. CLINICAL HISTORY: Chest pain. COMPARISON: Chest radiograph from 09/29/2018. TECHNIQUE: 1 view. FINDINGS: Lungs/Pleura: No focal airspace opacity. No pleural effusion or pneumothorax. Lung volumes are diminished. Mediastinum: Cardiomediastinal silhouette is within normal limits. Pulmonary vasculature is unremarkable. Other: None. IMPRESSION: No acute cardiopulmonary abnormality. RADIA
[2018-12-05 07:59] LABS: CREATININE 1.2 mg/dL (0.6-1.2)
[2018-12-05 08:00] LABS: ALBUMIN 3.7 g/dL (3.2-5.5); BILIRUBIN,TOTAL 0.7 mg/dL (0.2-1.0); TOTAL PROTEIN 7.3 g/dL (6.7-8.2)
[2018-12-05] MEDS ORDERED: FAMOTIDINE 20 MG TABLET PO STA (08:11)
[2018-12-05 08:21] VITALS: BP 133/90
== END 2018-12-05 08:38 | disposition home or self-care (01) ==
LOC: ED 06:56
DX: K21.9 Gastro-esophageal reflux disease without esophagitis (principal); F17.200 Nicotine dependence, unspecified, uncomplicated
CPT/HCPCS: 36415; 71045; 80053; 83690; 85025; 93005; 99284; A9270

== ENCOUNTER 2019-05-04 01:09 | Outpatient (CLI) | payer MEDICAID | END 2019-05-04 01:10 | disposition critical access hospital (66) | LOC: EMS 01:09 | PROVIDERS: ATTEND Surgery | DX: M25.572 Pain in left ankle and joints of left foot (principal); M25.472 Effusion, left ankle; S90.02XA Contusion of left ankle, initial encounter; X58.XXXA Exposure to other specified factors, initial encounter; Z59.0 Homelessness | CPT/HCPCS: A0425; A0429 ==

== ENCOUNTER 2019-05-04 01:28 | Emergency (ER) | payer MEDICAID ==
--- NOTE | 2019-05-04 01:39 | ED Physician Documentation ---
History of Present Illness - Stated complaint Stated Complaint: LEFT ANKLE PAIN AND SWELLING X 3 DAYS - Additonal information Additional information: This is a 48-year-old male who has a history of substance abuse who presents with left ankle pain. Patient states he is up and walking on his feet very frequently, as he currently is undomiciled. He began having some ankle pain 3 days ago which has increased over that time. There is been no specific event of trauma or twisting of the ankle, but it has seemed to gradually worsen with further use. He states that he injured the ankle in the distant past (many years ago) when he fell on it and lacerated it, but has not had any surgeries or hardware in the ankle. He denies any fever or chills. He has noticed some redness around all aspect of the ankle. He denies any injection in this area. No fever. Review of Systems Constitutional: denies: Fever Musculoskeletal: reports: Extremity pain PD PAST MEDICAL HISTORY - Past Medical History Cardiovascular: None Respiratory: None Neuro: None Endocrine/Autoimmune: None GI: GERD HEENT: None Psych: None Musculoskeletal: Osteoarthritis - Past Surgical History Past Surgical History: No - Present Medications Home Medications: Ambulatory Orders Medication Instructions Recorded Confirmed Omeprazole 20 mg PO DAILY #30 capsule. 12/05/18 Cephalexin [Keflex] 500 mg PO Q6H #28 capsule 05/04/19 Ibuprofen [Ibu] 600 mg PO Q6H PRN #30 tablet 05/04/19 - Allergies Allergies/Adverse Reactions: Allergies Allergy/AdvReac Type Severity Reaction Status Date / Time No Known Drug Allergies Allergy Verified 05/04/19 01:38 - Social History Does the pt smoke?: Yes Smoking Status: Current every day smoker Does the pt drink ETOH?: Yes Does the pt have substance abuse?: Yes - Immunizations Immunizations are current?: No - POLST Patient has POLST: No PD ED PE NORMAL - Vitals Vital signs reviewed: Yes - General General: Alert and oriented X 3, No acute distress - HEENT HEENT: PERRL - Cardiac Cardiac: RRR - Respiratory Respiratory: Clear bilaterally - Abdomen Abdomen: Normal bowel sounds, Soft, Non tender, Non distended - Derm Derm: Warm and dry - Extremities Extremities: Other (Mild edema over the left ankle which extends to the distal carlson. There is mild tenderness over the medial malleolus and lateral malleolus, no specific tenderness over the joint line. Patient has 5 out of 5 strength with ankle dorsiflexion and plantarflexion, this does not seem to cause him significant pain. Sensation is intact light touch over all toes. Capillary refill is brisk, and DP pulses are 2+ bilaterally. There is a 2 cm x 2 cm area of erythema just superior to the medial malleolus.) - Neuro Neuro: Alert and oriented X 3 - Psych Psych: Normal mood, Normal affect Results - Vitals Vitals: Vital Signs - 24 hr 05/04/19 05/04/19 05/04/19 01:35 01:41 02:55 Temperature 36.6 C Heart Rate 79 61 Respiratory 18 16 18 Rate Blood Pressure 120/104 H 115/74 O2 Saturation 100 98 Oxygen O2 Source Room air - Labs Labs: Laboratory Tests 05/04/19 05/04/19 01:40 01:40 WBC 7.4 RBC 4.07 L Hgb 12.2 L Hct 36.9 L MCV 90.7 MCH 30.0 MCHC 33.1 RDW 12.7 Plt Count 270 MPV 9.0 Neut # (Auto) 3.2 Lymph # (Auto) 2.7 [place] # (Auto) 0.8 Eos # (Auto) 0.7 Baso # (Auto) 0.0 Absolute Nucleated RBC 0.00 Nucleated RBC % 0.0 Sodium 140 Potassium 3.7 Chloride 105 Carbon Dioxide 27 Anion Gap 8.0 BUN 15 Creatinine 1.1 Estimated GFR (MDRD) 72 L Glucose 114 H Calcium 8.4 L C-Reactive Protein 1.1 H - Rads (name of study) XR ankle Radiology: Other (Suspected osteochondral injury along the lateral portion of the talar dome, moderate soft tissue swelling around the ankle joint.) PD MEDICAL DECISION MAKING - ED course Complexity details: considered differential (Fracture, dislocation, degenerative changes, septic joint, Gout) ED course: Patient is well-appearing on exam, he does have a edematous ankle where he has some tenderness over the bilateral malleoli. There is a area of erythema just superior to the malleoli, but not in the area where patient is particularly tender. Labs show a normal white blood cell count, and a CRP which is near normal at 1.1. Is able to range his ankle, and has no fever, all these factors together makes septic arthritis extremely unlikely. He has an x-ray which shows a possible osteochondral injury on the lateral portion of the talar dome, which would fit with his symptoms of pain after repetitive use as well as worsening when he walks on it. I doubt occult fracture based on the fact that he is able to bear weight on the ankle. I discussed these findings with him, and placed him in a air splint. I also discussed the need for close outpatient follow-up for a recheck and potential further imaging, and if he has having any worsening or is unable to obtain his follow-up he may return to the emergency department. I emphasized return precautions related to signs of infection, patient agreed this plan and was discharged home with a prescription for ibuprofen and keflex for treatment of the area of possible cellulitis above his ankle. Departure - Departure Disposition: 01 Home, Self Care Clinical Impression: Ankle pain, left Qualifiers: Chronicity: acute Qualified Code(s): M25.572 - Pain in left ankle and joints of left foot Condition: Good Follow-Up: [facility] [Provider Group] - Within 1 week Prescriptions: Cephalexin [Keflex] 500 mg PO Q6H #28 capsule Ibuprofen [Ibu] 600 mg PO Q6H PRN #30 tablet PRN Reason: Pain Comments: Your x-ray does not show signs of broken bones, but you may have an injury to the cartilage of your ankle joint. We are providing you with a brace that should help with your pain, you also need to follow-up with your primary care provider to ensure your ankle is getting better. You may also have a skin infection around your ankle, for which I am prescribing an antibiotic. If you are having increasing pain in your ankle, increasing redness, fever, or other signs of infection, return to the emergency department. Please have your ankle rechecked within the week. Discharge Date/Time: 05/04/19 03:14
[2019-05-04 01:49] LABS: BASOPHILS % (AUTO) 0.3 %; EOSINOPHILS # (AUTO) 0.7 10^3/uL (0.0-0.7); EOSINOPHILS % (AUTO) 8.8 %; HGB - HEMOGLOBIN 12.2 g/dL (14.0-18.0); LYMPHOCYTES # (AUTO) 2.7 10^3/uL (1.5-3.5); LYMPHOCYTES % (AUTO) 36.4 %; MEAN CORPUSCULAR HGB CONC 33.1 g/dL (32.0-36.0); MEAN CORPUSCULAR VOLUME 90.7 fL (80.0-94.0); MONOCYTES # (AUTO) 0.8 10^3/uL (0.0-1.0); MONOCYTES % (AUTO) 11.4 %; NEUTROPHILS # (AUTO) 3.2 10^3/uL (1.5-6.6); NEUTROPHILS % (AUTO) 42.8 %; PLT - PLATELET COUNT 270 10^3/uL (130-450); RED BLOOD COUNT 4.07 10^6/uL (4.70-6.10); RED CELL DISTRIBUTION WIDTH 12.7 % (12.0-15.0); WHITE BLOOD COUNT 7.4 x10^3/uL (4.8-10.8)
[2019-05-04 02:07] LABS: CALCIUM 8.4 mg/dL (8.5-10.3); CREATININE 1.1 mg/dL (0.6-1.2); CRP - C-REACTIVE PROTEIN 1.1 mg/dL (0-1.0)
[2019-05-04] MEDS ORDERED: IBUPROFEN 600 MG TABLET PO STA (02:10)
[2019-05-04] MEDS ORDERED: ACETAMINOPHEN 325 MG TABLET PO STA (02:10)
--- NOTE | 2019-05-04 02:32 | XRAY Report ---
Reason: Left ankle pain, more over medial mal Procedure Date: 05/04/2019 Accession Number: [id number] / [id number] Procedure: XR - Ankle 3 View LT CPT Code: Final Report FULL RESULT: EXAM: LEFT ANKLE RADIOGRAPHY EXAM DATE: 05/04/2019 01:55 AM CLINICAL HISTORY: Left ankle pain, more over medial malleolus. COMPARISON: None. TECHNIQUE: 3 views. FINDINGS: Bones: There is a subtle subcortical lucency within the lateral talar dome. There is a medium sized plantar calcaneal spur. Joints: Ankle mortise appears intact on these nonstressed images. Tibiotalar degenerative change noted. Soft Tissues: Moderate soft tissue swelling around the ankle. IMPRESSION: 1. Osteochondral injury suspected along the lateral portion of the talar dome. This could be further assessed with a nonemergent outpatient ankle MRI under radiologist supervision. 2. There is moderate soft tissue swelling noted around the ankle joint. RADIA
[2019-05-04] MEDS ORDERED: cephALEXin 250 MG CAPSULE PO STA (02:45)
[2019-05-04 03:14] VITALS: BP 115/74
== END 2019-05-04 03:14 | disposition home or self-care (01) ==
LOC: EDUNIT# → ED 01:28
DX: M25.572 Pain in left ankle and joints of left foot (principal); R60.0 Localized edema; F17.200 Nicotine dependence, unspecified, uncomplicated; Z59.0 Homelessness
CPT/HCPCS: 36415; 73610; 80048; 85025; 86140; 99284; A9270

== ENCOUNTER 2019-05-22 22:43 | Outpatient (CLI) | payer MEDICAID | END 2019-05-22 23:59 | disposition critical access hospital (66) | LOC: EMS 22:43 | PROVIDERS: ATTEND Surgery | DX: R07.81 Pleurodynia (principal); Z59.0 Homelessness | CPT/HCPCS: A0425; A0429 ==

== ENCOUNTER 2019-05-22 23:02 | Emergency (ER) | payer MEDICAID ==
--- NOTE | 2019-05-23 01:44 | ED Physician Documentation ---
History of Present Illness - Stated complaint Stated Complaint: FT PX/ RIB PX - Chief complaint Chief Complaint: General - History obtained from History obtained from: Patient - History of Present Illness Timing: Today - Additonal information Additional information: 48-year-old homeless male with a methamphetamine abuse problem has been out walking excessively in wet shoes and he is now complaining of pain to both of his feet and he is complaining of some chest pain as well. He has had reflux previously he has been taking some omeprazole. He indicates that he sometimes has an increase in his pain when he eats. He states that tonight he just wants to coming out of the cold and does want does not want aggressive treatment. Review of Systems Constitutional: denies: Fever, Myalgias Eyes: denies: Decreased vision Ears: denies: Ear pain Nose: denies: Congestion Throat: denies: Sore throat Cardiac: reports: Chest pain / pressure. denies: Palpitations Respiratory: denies: Dyspnea, Cough GI: denies: Abdominal Pain, Nausea, Vomiting : denies: Dysuria, Frequency Musculoskeletal: reports: Extremity pain, Pain with weight bearing Neurologic: denies: Generalized weakness, Focal weakness, Numbness PD PAST MEDICAL HISTORY - Past Medical History Cardiovascular: None Respiratory: None Neuro: None Endocrine/Autoimmune: None GI: GERD HEENT: None Psych: None Musculoskeletal: Osteoarthritis - Past Surgical History Past Surgical History: No - Present Medications Home Medications: Ambulatory Orders Medication Instructions Recorded Confirmed Omeprazole 20 mg PO DAILY #30 capsule. 12/05/18 Cephalexin [Keflex] 500 mg PO Q6H #28 capsule 05/04/19 Ibuprofen [Ibu] 600 mg PO Q6H PRN #30 tablet 05/04/19 Fluconazole 150 mg PO DAILY #14 tablet 05/23/19 - Allergies Allergies/Adverse Reactions: Allergies Allergy/AdvReac Type Severity Reaction Status Date / Time No Known Drug Allergies Allergy Verified 05/22/19 23:06 - Social History Does the pt smoke?: Yes Smoking Status: Current every day smoker Does the pt drink ETOH?: Yes Does the pt have substance abuse?: Yes - Immunizations Immunizations are current?: No - POLST Patient has POLST: No PD ED PE NORMAL - Vitals Vital signs reviewed: Yes (hypertensive mild ) - General General: Alert and oriented X 3, No acute distress, Well developed/nourished, Other (umkempt 48 y/o male is interacting appropriately ) - HEENT HEENT: Atraumatic, PERRL, EOMI - Neck Neck: Supple, no meningeal sign, No bony TTP - Cardiac Cardiac: RRR, No murmur - Respiratory Respiratory: No respiratory distress, Clear bilaterally - Abdomen Abdomen: Soft, Non tender - Back Back: No CVA TTP, No spinal TTP - Derm Derm: Normal color, Warm and dry - Extremities Extremities: No deformity, Other (The bottom of both feet have white edema from the distal MT's to the mid foot on the plantar surface. The exam is consistent with Non-freezing cold injury or trench foot. There is involvement of both feet and just the distal plantar foot. ) - Neuro Neuro: Alert and oriented X 3, computer numeric control setter 2-12 intact, No motor deficit, No sensory deficit, Normal speech Eye Opening: Spontaneous Motor: Obeys Commands Verbal: Oriented GCS Score: 15 - Psych Psych: Normal mood, Normal affect Results - Vitals Vitals: Vital Signs - 24 hr 05/22/19 05/23/19 05/23/19 23:06 03:56 08:58 Temperature 36.5 C 36.5 C Heart Rate 70 52 L Respiratory 14 17 12 Rate Blood Pressure 132/92 H 118/83 H O2 Saturation 99 97 Oxygen O2 Source Room air PD MEDICAL DECISION MAKING - ED course Complexity details: reviewed old records, reviewed results, re-evaluated patient, considered differential, d/w patient ED course: 48-year-old homeless male with methamphetamine abuse has trench foot and presents to the emergency department with sore feet. He vaguely describes some chest discomfort which he states is heartburn. He refuses any specific work-up including blood work and states that he just wants to stay out of the cold and sleep. He indicates that he has usually been sleeping on the transit and that otherwise he has not stayed in the [facility] at night. He has been staying in [facility] or [facility]. He is placed onto a bed with his feet open to the air to dry and elevated. There is some improvement with time. Departure - Departure Disposition: 01 Home, Self Care Clinical Impression: Trench feet Qualifiers: Encounter type: initial encounter Laterality: unspecified laterality Qualified Code(s): T69.029A - Immersion foot, unspecified foot, initial encounter Athletes foot Qualifiers: Laterality: bilateral Qualified Code(s): B35.3 - Tinea pedis Condition: Stable Instructions: ED Fungal Infec Athlete Foot Follow-Up: [facility] [Provider Group] Prescriptions: Fluconazole 150 mg PO DAILY #14 tablet Discharge Date/Time: 05/23/19 09:29
[2019-05-23 08:59] VITALS: BP 118/83
--- NOTE | 2019-05-23 09:07 | ED Physician Documentation ---
ED Addendum - Addendum Addendum: 05/23/19 09:06 Social work saw the patient and gave him information and phone numbers to contact regarding shelters.
== END 2019-05-23 09:29 | disposition home or self-care (01) ==
LOC: EDUNIT# → ED 23:02
DX: T69.022A Immersion foot, left foot, initial encounter (principal); T69.021A Immersion foot, right foot, initial encounter; X31.XXXA Exposure to excessive natural cold, initial encounter; B35.3 Tinea pedis; F17.200 Nicotine dependence, unspecified, uncomplicated; Z59.0 Homelessness
CPT/HCPCS: 80053; 80320; 83690; 84484; 85025; 99283; 99284

== ENCOUNTER 2019-10-08 22:53 | Outpatient (CLI) | payer MEDICAID | END 2019-10-08 22:54 | disposition critical access hospital (66) | LOC: EMS 22:53 | PROVIDERS: ATTEND Surgery | DX: M79.672 Pain in left foot (principal); M79.671 Pain in right foot | CPT/HCPCS: A0425; A0429 ==

== ENCOUNTER 2019-10-08 23:09 | Emergency (ER) | payer MEDICAID ==
[2019-10-08 23:14] VITALS: BP 129/93
--- NOTE | 2019-10-08 23:16 | ED Physician Documentation ---
History of Present Illness - Stated complaint Stated Complaint: BLISTERS ON FEET - Chief complaint Chief Complaint: Ext Problem - History obtained from History obtained from: Patient, EMS - History of Present Illness Timing: Today Pain level now: 8 Improved by: rest Worsened by: weight-bearing - Additonal information Additional information: BIBA. Patient c/o bilateral foot pain after "walking all day" (per patient). many previous [facility] ED visits for similar c/o. Review of Systems Constitutional: denies: Fever Musculoskeletal: reports: Extremity pain, Pain with weight bearing Neurologic: denies: Focal weakness, Numbness PD PAST MEDICAL HISTORY - Past Medical History Past Medical History: Yes Cardiovascular: None Respiratory: None Neuro: None Endocrine/Autoimmune: None GI: GERD HEENT: None Psych: None Musculoskeletal: Osteoarthritis - Past Surgical History Past Surgical History: No - Present Medications Home Medications: Ambulatory Orders Medication Instructions Recorded Confirmed Omeprazole 20 mg PO DAILY #30 capsule. 12/05/18 10/08/19 Fluconazole 150 mg PO OAW #3 tablet 10/08/19 Meloxicam [Mobic] 15 mg PO DAILY PRN #20 tablet 10/08/19 Omeprazole 20 mg PO DAILY #30 capsule. 10/08/19 - Allergies Allergies/Adverse Reactions: Allergies Allergy/AdvReac Type Severity Reaction Status Date / Time No Known Drug Allergies Allergy Verified 10/08/19 23:15 - Social History Does the pt smoke?: Yes Smoking Status: Current every day smoker Does the pt drink ETOH?: Yes Does the pt have substance abuse?: Yes - Immunizations Immunizations are current?: No - POLST Patient has POLST: No PD ED PE NORMAL - Vitals Vital signs reviewed: Yes - General General: Alert and oriented X 3, No acute distress, Well developed/nourished - Extremities Extremities: No tenderness to palpate, Normal ROM s pain - Neuro Neuro: Alert and oriented X 3 PD ED PE EXPANDED - Extremities Extremities: Other (the soles of both feet are mildly edematous, with thick, boggy white hypertrophic and macerated skin on plantar surfaces, predomninantly mid/distal foot. There is brisk capillary refill, LTS intact, no evidence of gangrene . strong DP and PT pulses bilaterally. There is white plaque material in 1st-3rd webspaces of both feet) Results - Vitals Vitals: Vital Signs - 24 hr 10/08/19 23:10 Temperature 37.3 C Heart Rate 99 Respiratory 20 Rate Blood Pressure 129/93 H O2 Saturation 98 Oxygen O2 Source Room air PD MEDICAL DECISION MAKING - ED course Complexity details: reviewed old records, considered differential, d/w patient ED course: similar c/o as previous visit (in May) with similar exam findings. He requests refill on his omeprazole, which is provided. Also given 150mg fluconazole with rx and ibuprofen in ED with rx for mobic. Departure - Departure Disposition: Home, Self Care Clinical Impression: Trench feet Qualifiers: Encounter type: initial encounter Laterality: unspecified laterality Qualified Code(s): T69.029A - Immersion foot, unspecified foot, initial encounter Tinea pedis Qualifiers: Laterality: bilateral Qualified Code(s): B35.3 - Tinea pedis Condition: Good Instructions: ED Fungal Infec Athlete Foot Prescriptions: Fluconazole 150 mg PO OAW #3 tablet Meloxicam [Mobic] 15 mg PO DAILY PRN #20 tablet PRN Reason: pain Omeprazole 20 mg PO DAILY #30 capsule. Comments: Your feet appear to be afflicted with "trench foot", which is caused by prolonged exposure to cold and wet conditions. There are also findings to suggest a fungal infection ("athlete's foot") as well. An antifungal medication was given to you tonight and a prescription to be taken once per week for the next 3 weeks. The most important component of getting your feet to heal is keeping them clean and dry. Do not wear constrictive socks or footwear. Air- drying for several hours per day will help your feet heal as long as it is not in a cold environment. Discharge Date/Time: 10/08/19 23:53
[2019-10-08] MEDS ORDERED: IBUPROFEN 600 MG TABLET PO STA (23:30)
[2019-10-08] MEDS ORDERED: FLUCONAZOLE 100 MG TABLET PO STA (23:30)
== END 2019-10-08 23:53 | disposition home or self-care (01) ==
LOC: EDUNIT# → ED 23:09
DX: T69.022A Immersion foot, left foot, initial encounter (principal); T69.021A Immersion foot, right foot, initial encounter; X39.8XXA Other exposure to forces of nature, initial encounter; Y93.01 Activity, walking, marching and hiking; B35.3 Tinea pedis; F17.200 Nicotine dependence, unspecified, uncomplicated
CPT/HCPCS: 99283; A9270

== ENCOUNTER 2019-12-10 21:16 | Outpatient (CLI) | payer MEDICAID | END 2019-12-10 21:17 | disposition critical access hospital (66) | LOC: EMS 21:16 | PROVIDERS: ATTEND Surgery | DX: R06.00 Dyspnea, unspecified (principal) | CPT/HCPCS: A0425; A0429 ==

== ENCOUNTER 2019-12-10 21:34 | Emergency (ER) | payer MEDICAID ==
[2019-12-10] MEDS ORDERED: LORazepam 1 MG TABLET PO STA (21:38)
[2019-12-10] MEDS ORDERED: IPRATROPIUM/ALBUTEROL 3 ML NEB INH STA (21:38)
[2019-12-10] MEDS ORDERED: AZITHROMYCIN 250 MG TABLET PO STA (21:38)
--- NOTE | 2019-12-10 21:40 | ED Physician Documentation ---
PD HPI DYSPNEA - Stated complaint Stated Complaint: MASK CONCERNS - History obtained from History obtained from: Patient, EMS - Additional information Additional information: This is a 49-year-old gentleman who smokes heavily and uses methamphetamines who presents with 3 days of productive cough and shortness of breath and feeling like he cannot breathe with a mask on. He also feels panicky. No chest pain. Review of Systems Constitutional: denies: Fever, Chills Nose: denies: Rhinorrhea / runny nose, Congestion Cardiac: denies: Chest pain / pressure, Palpitations Respiratory: reports: Dyspnea, Cough PD PAST MEDICAL HISTORY - Past Medical History Cardiovascular: None Respiratory: None Neuro: None Endocrine/Autoimmune: None GI: GERD HEENT: None Psych: None Musculoskeletal: Osteoarthritis - Past Surgical History Past Surgical History: No - Present Medications Home Medications: Ambulatory Orders Medication Instructions Recorded Confirmed Omeprazole 20 mg PO DAILY #30 capsule. 12/05/18 10/08/19 Fluconazole 150 mg PO OAW #3 tablet 10/08/19 Meloxicam [Mobic] 15 mg PO DAILY PRN #20 tablet 10/08/19 Omeprazole 20 mg PO DAILY #30 capsule. 10/08/19 Albuterol Sulf [Ventolin Hfa 1 - 2 puffs INH Q4HR PRN #1 inhaler 12/10/19 Inhaler] Azithromycin 1 tab PO DAILY #4 tablet 12/10/19 - Allergies Allergies/Adverse Reactions: Allergies Allergy/AdvReac Type Severity Reaction Status Date / Time No Known Drug Allergies Allergy Verified 12/10/19 21:47 - Social History Does the pt smoke?: Yes Smoking Status: Current every day smoker Does the pt drink ETOH?: Yes Does the pt have substance abuse?: Yes - Immunizations Immunizations are current?: No - POLST Patient has POLST: No PD ED PE NORMAL - Vitals Vital signs reviewed: Yes - General General: Alert and oriented X 3, No acute distress - HEENT HEENT: PERRL, EOMI - Neck Neck: Supple, no meningeal sign, No bony TTP - Cardiac Cardiac: RRR, No murmur - Respiratory Respiratory: No respiratory distress, Other (Mild expiratory wheezes without focal findings, nonlabored) - Abdomen Abdomen: Non tender - Extremities Extremities: No edema, No calf tenderness / cord - Neuro Neuro: Alert and oriented X 3, Normal speech Results - Vitals Vitals: Vital Signs - 24 hr 12/10/19 12/10/19 21:37 22:00 Temperature 37.5 C Heart Rate 92 92 Respiratory 18 18 Rate Blood Pressure 132/88 H O2 Saturation 99 Oxygen O2 Source Room air PD MEDICAL DECISION MAKING - ED course ED course: 49-year-old gentleman with history of both tobacco and methamphetamine abuse presents with what sounds like bronchitis and some panic related to same. Does not want to wear a mask. Discussed with him that as he leaves the facility he can socially distance and not wear a mask. Became beligerent and yelling/swearing at staff. He was deescalated No apparent EMC is present. Departure - Departure Disposition: 01 Home, Self Care Clinical Impression: Methamphetamine abuse, Bronchitis, Tobacco abuse Condition: Good Record reviewed to determine appropriate education?: Yes Instructions: ED Bronchitis Asthmatic Prescriptions: Albuterol Sulf [Ventolin Hfa Inhaler] 1 - 2 puffs INH Q4HR PRN #1 inhaler PRN Reason: Shortness Of Air/Wheezing Azithromycin 1 tab PO DAILY #4 tablet Comments: Please refrain from using methamphetamines and/or tobacco. He do not need to wear a mask if you are staying at least 6 feet from other people. Return if worse. Discharge Date/Time: 12/10/19 22:23
[2019-12-10 21:47] VITALS: BP 132/88
[2019-12-10] MEDS ORDERED: IBUPROFEN 600 MG TABLET PO STA (21:48)
[2019-12-10] MEDS ORDERED: ALBUTEROL 1 PUFF INH STA (21:53)
== END 2019-12-10 22:23 | disposition home or self-care (01) ==
LOC: EDUNIT# → ED 21:34
DX: F15.10 Other stimulant abuse, uncomplicated (principal); F17.200 Nicotine dependence, unspecified, uncomplicated
CPT/HCPCS: 94640; 99283; 99284; A9270; J8499

== ENCOUNTER 2020-10-29 01:41 | Outpatient (CLI) | payer MEDICAID | END 2020-10-29 01:42 | disposition critical access hospital (66) | LOC: EMS 01:41 | DX: R51.9 Headache, unspecified (principal) | CPT/HCPCS: A0425; A0429 ==

== ENCOUNTER 2020-10-29 01:56 | Emergency (ER) | payer MEDICAID ==
--- NOTE | 2020-10-29 03:45 | ED Physician Documentation ---
History of Present Illness - Stated complaint Stated Complaint: OBRIEN - Chief complaint Chief Complaint: Neuro - History obtained from History obtained from: Patient, EMS - History of Present Illness Timing: Today - Additonal information Additional information: 50-year-old male with history of methamphetamine abuse comes into the emergency department today by ambulance with a chief complaint of a headache and feeling like he is going through withdrawals. When he arrived to the emergency department he wants to be left alone to sleep and does not want to pursue a work-up. Review of Systems Unable to obtain: Uncooperative PD PAST MEDICAL HISTORY - Past Medical History Past Medical History: Yes Cardiovascular: None Respiratory: None Neuro: None Endocrine/Autoimmune: None GI: GERD HEENT: None Psych: None Musculoskeletal: Osteoarthritis - Past Surgical History Past Surgical History: No - Present Medications Home Medications: Ambulatory Orders Medication Instructions Recorded Confirmed Omeprazole 20 mg PO DAILY #30 capsule. 10/08/19 10/29/20 Gabapentin [Neurontin] 300 mg PO TID 10/29/20 10/29/20 - Allergies Allergies/Adverse Reactions: Allergies Allergy/AdvReac Type Severity Reaction Status Date / Time No Known Drug Allergies Allergy Verified 10/29/20 01:59 - Social History Does the pt smoke?: Yes Smoking Status: Current every day smoker Does the pt drink ETOH?: Yes Does the pt have substance abuse?: Yes Substance Use and Type: Meth - Immunizations Immunizations are current?: No - POLST Patient has POLST: No PD ED PE NORMAL - Vitals Vital signs reviewed: Yes (hypertensive ) - General General: No acute distress, Well developed/nourished, Other (sommulent and irritated at being awakened. ) - HEENT HEENT: Atraumatic, PERRL, EOMI - Neck Neck: Supple, no meningeal sign, No bony TTP - Cardiac Cardiac: RRR, No murmur - Respiratory Respiratory: No respiratory distress, Clear bilaterally - Abdomen Abdomen: Soft, Non tender - Back Back: No CVA TTP, No spinal TTP - Derm Derm: Normal color, Warm and dry, No rash - Extremities Extremities: No deformity, No edema - Neuro Neuro: Alert and oriented X 3, non categorical preschool teacher 2-12 intact, No motor deficit, No sensory deficit, Normal speech Eye Opening: Spontaneous Motor: Obeys Commands Verbal: Oriented GCS Score: 15 - Psych Psych: Normal mood, Normal affect Results - Vitals Vitals: Vital Signs - 24 hr 10/29/20 10/29/20 10/29/20 02:01 02:08 04:04 Temperature 36.7 C 36.7 C 36.6 C Heart Rate 80 80 81 Respiratory 15 15 16 Rate Blood Pressure 144/96 H 144/95 H 138/86 H O2 Saturation 98 100 97 10/29/20 04:53 Temperature 36.7 C Heart Rate 78 Respiratory 16 Rate Blood Pressure 126/79 O2 Saturation 98 Oxygen O2 Source Room air PD MEDICAL DECISION MAKING - ED course Complexity details: considered differential, d/w patient ED course: 50-year-old male with a history of methamphetamine abuse comes into the emergency department today not wanting a work-up and just wanting to sleep. We will ask social work for resources for the patient. Departure - Departure Clinical Impression: Methamphetamine abuse Condition: Stable Instructions: Abuse Meth Abuse and Addiction Follow-Up: [facility] [Provider Group]
[2020-10-29] MEDS ORDERED: LORazepam 1 MG TABLET PO STA (09:26)
[2020-10-29] MEDS ORDERED: ACETAMINOPHEN 325 MG TABLET PO STA (09:27)
--- NOTE | 2020-10-29 09:29 | ED Physician Documentation ---
ED Addendum - Addendum Addendum: The patient had slept initially after change of shift. Social work talked with the patient and he was a little bit anxious about leaving. Meaning he would like to be leaving soon. We can give him some lorazepam as these can of fidgety presumably from recent meth. Tylenol for pains. Social work offered him resources or trying to attempt detox or such and he declines. He will be discharged from the department. 10/29/20 09:27
[2020-10-29 10:37] VITALS: BP 134/82
== END 2020-10-29 10:37 | disposition home or self-care (01) ==
LOC: EDUNIT# → ED 01:56
DX: F15.10 Other stimulant abuse, uncomplicated (principal); R51.9 Headache, unspecified; F17.200 Nicotine dependence, unspecified, uncomplicated
CPT/HCPCS: 99281; 99283; A9270; J8499

== ENCOUNTER 2021-04-03 19:51 | Outpatient (CLI) | payer MEDICAID | END 2021-04-03 19:52 | disposition critical access hospital (66) | LOC: EMS 19:51 | DX: R56.9 Unspecified convulsions (principal) | CPT/HCPCS: A0425; A0427; A0999 ==

== ENCOUNTER 2021-04-03 20:08 | Emergency (ER) | payer MEDICAID ==
[2021-04-03] MEDS ORDERED: SODIUM CHLORIDE 0.9% 1,000 ML IV STA (20:24)
[2021-04-03 20:41] LABS: BASOPHILS % (AUTO) 0.3 %; EOSINOPHILS # (AUTO) 0.3 10^3/uL (0.0-0.7); EOSINOPHILS % (AUTO) 3.1 %; HCT - HEMATOCRIT 40.7 % (42.0-52.0); HGB - HEMOGLOBIN 13.6 g/dL (14.0-18.0); LYMPHOCYTES # (AUTO) 2.6 10^3/uL (1.5-3.5); LYMPHOCYTES % (AUTO) 27.4 %; MEAN CORPUSCULAR HEMOGLOBIN 30.3 pg (27.0-31.0); MEAN CORPUSCULAR HGB CONC 33.4 g/dL (32.0-36.0); MEAN CORPUSCULAR VOLUME 90.6 fL (80.0-94.0); MEAN PLATELET VOLUME 8.9 fL (7.4-11.4); MONOCYTES # (AUTO) 0.7 10^3/uL (0.0-1.0); MONOCYTES % (AUTO) 7.6 %; NEUTROPHILS # (AUTO) 5.9 10^3/uL (1.5-6.6); NEUTROPHILS % (AUTO) 61.3 %; PLT - PLATELET COUNT 290 10^3/uL (130-450); RED BLOOD COUNT 4.49 10^6/uL (4.70-6.10); WHITE BLOOD COUNT 9.6 x10^3/uL (4.8-10.8)
[2021-04-03 20:47] LABS: ALBUMIN 4.3 g/dL (3.2-5.5); ALKALINE PHOSPHATASE 48 IU/L (42-121); ALT ALANINE AMINOTRANSFERASE 16 IU/L (10-60); AST ASPARTATE AMINOTRANSFERASE 24 IU/L (10-42); BILIRUBIN,TOTAL 0.5 mg/dL (0.2-1.0); BUN - BLOOD UREA NITROGEN 14 mg/dL (6-20); CALCIUM 9.2 mg/dL (8.5-10.3); CARBON DIOXIDE - CO2 16 mmol/L (21-32); CHLORIDE 103 mmol/L (101-111); CREATININE 1.3 mg/dL (0.6-1.2); GFR - MDRD 59 (>89); GLUCOSE 143 mg/dL (70-100); POTASSIUM 4.1 mmol/L (3.5-5.0); SODIUM 137 mmol/L (135-145); TOTAL PROTEIN 7.8 g/dL (6.7-8.2)
[2021-04-03 20:48] LABS: ALBUMIN/GLOBULIN RATIO 1.2 (1.0-2.2); ETOH - ETHANOL < 5.0 mg/dL; LIPASE 27 U/L (22-51)
[2021-04-03] MEDS ORDERED: TETANUS/DIPHTHERIA/PERTUSSIS 0.5 ML SYRINGE IM ONE (20:48)
--- NOTE | 2021-04-03 23:38 | CT Report ---
PROCEDURE: HEAD WO INDICATIONS: possible first time seizure TECHNIQUE: Noncontrast 4.5 mm thick angled axial sections acquired from the foramen magnum to the vertex. For r adiation dose reduction, the following was used: automated exposure control, adjustment of mA and/or kV according to patient size. COMPARISON: None. FINDINGS: Image quality: Excellent. CSF spaces: Basal cisterns are patent. No extra-axial fluid collections. Ventricles are normal in size and shape. Brain: No midline shift. No intracranial masses or hemorrhage. Garcia-white matter interface is norm al. Skull and face: Calvarium and visualized facial bones are intact, without suspicious lesions. Sinuses: Incidental note is made of the presence of a right maxillary sinus mucus retention cyst. IMPRESSION: Unremarkable brain parenchyma. No evidence of acute stroke, hemorrhage, or mass. Reviewed by: Amadou Viramontes MD on 04/03/2021 11:37 PM PST Approved by: Amadou Viramontes MD on 04/03/2021 11:37 PM PST Station ID: [id number]
--- NOTE | 2021-04-03 23:39 | CT Report ---
PROCEDURE: CERVICAL SPINE WO INDICATIONS: midline neck pain s/p seizure TECHNIQUE: Noncontrast 3 mm thick sections acquired from the skull base to the T4 level. Sagittal and coronal r eformats were then constructed. For radiation dose reduction, the following was used: automated exp osure control, adjustment of mA and/or kV according to patient size. COMPARISON: None. FINDINGS: Image quality: Excellent. Bones: No fractures or dislocations. Visualized superior ribs are intact. Soft tissues: Prevertebral soft tissues are normal in thickness. No paravertebral hematomas. No ap ical pneumothoraces. IMPRESSION: No evidence acute cervical fracture or dislocation. Reviewed by: Amadou Viramontes MD on 04/03/2021 11:38 PM PST Approved by: Amadou Viramontes MD on 04/03/2021 11:38 PM PST Station ID: [id number]
--- NOTE | 2021-04-04 02:44 | ED Physician Documentation ---
History of Present Illness - Stated complaint Stated Complaint: SEIZURE - Chief complaint Chief Complaint: Laceration - History obtained from History obtained from: Patient, EMS - Additonal information Additional information: 50yM with pmh methamphetamine abuse, depression, p/w two episodes of seizurelike activity tonight. patient completely returned to baseline in the ed. He is adamant that he does not regularly drink alcohol and his last alcoholic drink was over two weeks ago. last meth reported 1 week ago. reports he was feeling fine yesterday and does not remember what happened. residents at the [facility] reported seizurelike activity to EMS, and he had a second episode en route after returning to baseline in between Review of Systems Ten Systems: 10 systems reviewed and negative Constitutional: denies: Fever, Chills Cardiac: denies: Chest pain / pressure Respiratory: denies: Dyspnea, Cough : denies: Hematuria Skin: reports: Abrasion (s) Musculoskeletal: reports: Neck pain. denies: Extremity pain Neurologic: reports: Seizure (seizure like episodes). denies: Focal weakness, Numbness PD PAST MEDICAL HISTORY - Past Medical History Past Medical History: Yes Cardiovascular: None Respiratory: None Neuro: None Endocrine/Autoimmune: None GI: GERD : None HEENT: None Psych: Other Musculoskeletal: Osteoarthritis Other Past Medical History: Meth & Alcohol abuse - Past Surgical History Past Surgical History: No - Present Medications Home Medications: Ambulatory Orders Medication Instructions Recorded Confirmed Omeprazole 20 mg PO DAILY #30 capsule. 10/08/19 04/03/21 Gabapentin [Neurontin] 300 mg PO TID 10/29/20 04/03/21 Fluoxetine HCl [Prozac] 20 mg PO 04/04/21 buPROPion [Wellbutrin Sr] 150 mg PO 04/04/21 - Allergies Allergies/Adverse Reactions: Allergies Allergy/AdvReac Type Severity Reaction Status Date / Time No Known Drug Allergies Allergy Verified 04/03/21 20:20 - Social History Does the pt smoke?: Yes Smoking Status: Current every day smoker Does the pt drink ETOH?: Yes Does the pt have substance abuse?: Yes - Immunizations Immunizations are current?: No - POLST Patient has POLST: No PD ED PE NORMAL - Vitals Vital signs reviewed: Yes - General General: Alert and oriented X 3, No acute distress, Well developed/nourished, Other (disheveled appearance) - HEENT HEENT: Atraumatic, PERRL, EOMI, Moist mucous membranes, Pharynx benign - Neck Neck: Supple, no meningeal sign - Cardiac Cardiac: RRR - Respiratory Respiratory: No respiratory distress, Clear bilaterally - Abdomen Abdomen: Non tender, Non distended - Derm Derm: Normal color, Warm and dry, Other (abrasion to R frontal scalp) - Extremities Extremities: No deformity - Neuro Neuro: Alert and oriented X 3, data collection interviewer 2-12 intact, No motor deficit, No sensory deficit, Normal speech - Psych Psych: Normal mood, Normal affect Results - Vitals Vitals: Vital Signs - 24 hr 04/03/21 04/03/21 04/03/21 20:10 20:38 21:00 Temperature 37.1 C Heart Rate 111 H 115 H 110 H Respiratory 24 27 H 26 H Rate Blood Pressure 133/89 H 134/75 H 139/77 H O2 Saturation 95 96 97 04/03/21 04/03/21 04/03/21 21:30 22:00 22:57 Temperature Heart Rate 109 H 100 97 Respiratory 28 H 27 H 20 Rate Blood Pressure 154/76 H 140/91 H O2 Saturation 98 96 98 04/03/21 04/04/21 04/04/21 23:24 00:20 00:52 Temperature 37.2 C Heart Rate 97 94 91 Respiratory 19 18 19 Rate Blood Pressure 137/101 H 162/108 H 126/80 O2 Saturation 96 96 96 Oxygen O2 Source Room air - Labs Labs: Laboratory Tests 04/03/21 04/03/21 20:26 20:26 WBC 9.6 RBC 4.49 L Hgb 13.6 L Hct 40.7 L MCV 90.6 MCH 30.3 MCHC 33.4 RDW 13.0 Plt Count 290 MPV 8.9 Neut # (Auto) 5.9 Lymph # (Auto) 2.6 [place] # (Auto) 0.7 Eos # (Auto) 0.3 Baso # (Auto) 0.0 Absolute Nucleated RBC 0.00 Nucleated RBC % 0.0 Sodium 137 Potassium 4.1 Chloride 103 Carbon Dioxide 16 L Anion Gap 18.0 H BUN 14 Creatinine 1.3 H Estimated GFR (MDRD) 59 L Glucose 143 H Calcium 9.2 Total Bilirubin 0.5 AST 24 ALT 16 Alkaline Phosphatase 48 Total Protein 7.8 Albumin 4.3 Globulin 3.5 Albumin/Globulin Ratio 1.2 Lipase 27 Ethyl Alcohol < 5.0 PD MEDICAL DECISION MAKING - ED course ED course: 50yM p/w two seizure like episodes. upon my reexamination patient reported he recently has been taking extra doses of his meds in an effort to get high, but does not remember what they are, only that he is on four of them. denies SI/HI/AVH. chart review shows he takes omeprazole, fluoxetine, bupropion and gabapentin. Advised patient not to take additional doses of his medications and to stop the bupropion, which has been linked with seizures. encouraged him to f/u with his doctor who prescribes his meds and to also f/u with a neurologist. Per ACEP clinical guidelines the plan is for outpatient follow up and to hold off on antiepileptics until he sees a neurologist. strict return precautions given. Departure - Departure Disposition: 01 Home, Self Care Clinical Impression: Seizure-like activity, Abrasion Condition: Good Instructions: First Aid Seizures Follow-Up: Genie Wright, [Physician No Access] - Comments: You were seen in the emergency department for a possible seizure. Your labs, head and neck ct did not show a cause for your symptoms. You should stop taking bupropion (one of your medications which can increase risk of seizures) and follow up with your primary doctor who prescribed it. Please also follow up with a neurologist this week for further workup. You may need to get EEG testing to confirm seizure activity and start anti-seizure medications.
[2021-04-04] MEDS ORDERED: IBUPROFEN 600 MG TABLET PO STA (02:47)
[2021-04-04 03:01] VITALS: BP 130/91
== END 2021-04-04 03:10 | disposition home or self-care (01) ==
LOC: EDUNIT# → ED 20:08
DX: R56.9 Unspecified convulsions (principal); S00.01XA Abrasion of scalp, initial encounter; X58.XXXA Exposure to other specified factors, initial encounter; F17.200 Nicotine dependence, unspecified, uncomplicated
CPT/HCPCS: 36415; 70450; 72125; 80053; 80320; 83690; 85025; 96360; 99283; 99284; A9270; 80306; 81001; 81003; 87086

== ENCOUNTER 2022-07-27 10:03 | Outpatient (CLI) | payer MEDICAID | END 2022-07-27 23:59 | disposition critical access hospital (66) | LOC: EMS 10:03 | DX: R07.9 Chest pain, unspecified (principal); R11.10 Vomiting, unspecified | CPT/HCPCS: A0425; A0429; A0999 ==

== ENCOUNTER 2022-07-27 10:25 | Emergency (ER) | payer MEDICAID ==
--- NOTE | 2022-07-27 10:50 | ED Physician Documentation ---
History of Present Illness - Stated complaint Stated Complaint: CP/VOMITING - Chief complaint Chief Complaint: Abd Pain - Additonal information Additional information: Patient 52-year-old male presenting to the emergency department with chief complaint nausea, vomiting, chest and abdominal pain. Reports multiple episodes of nausea vomiting last night. This was associated with chest and abdominal pain. Currently states that he feels somewhat better. Denies previous episodes of similar symptoms. Does report regular cannabinoid use. Review of Systems Constitutional: denies: Fever Eyes: denies: Loss of vision Ears: denies: Loss of hearing Nose: denies: Rhinorrhea / runny nose Cardiac: reports: Chest pain / pressure Respiratory: denies: Dyspnea GI: reports: Abdominal Pain, Nausea, Vomiting PD PAST MEDICAL HISTORY - Past Medical History Cardiovascular: None Respiratory: None Neuro: None Endocrine/Autoimmune: None GI: GERD : None HEENT: None Psych: Other Musculoskeletal: Osteoarthritis - Past Surgical History Past Surgical History: No - Present Medications Home Medications: Ambulatory Orders Medication Instructions Recorded Confirmed RX: Omeprazole 20 mg PO DAILY #30 capsule. 10/08/19 10/18/21 RX: Gabapentin [Neurontin] 300 mg PO TID 10/29/20 10/18/21 RX: Fluoxetine HCl [Prozac] 20 mg PO DAILY 04/04/21 10/18/21 RX: buPROPion [Wellbutrin Sr] 150 mg PO DAILY 04/04/21 10/18/21 Ondansetron Odt [Zofran] 4 mg TL Q6H PRN #10 tablet 07/27/22 - Allergies Allergies/Adverse Reactions: Allergies Allergy/AdvReac Type Severity Reaction Status Date / Time No Known Drug Allergies Allergy Verified 10/18/21 02:57 - Social History Does the pt smoke?: Yes Smoking Status: Current every day smoker Does the pt drink ETOH?: Yes Does the pt have substance abuse?: Yes - Immunizations Immunizations are current?: No - POLST Patient has POLST: No PD ED PE NORMAL - Vitals Vital signs reviewed: Yes - General General: Alert and oriented X 3, No acute distress - HEENT HEENT: Atraumatic, PERRL, EOMI, Ears normal, Moist mucous membranes, Pharynx benign - Neck Neck: Supple, no meningeal sign, No bony TTP, No adenopathy - Cardiac Cardiac: RRR, No gallop, Strong equal pulses - Respiratory Respiratory: No respiratory distress, Clear bilaterally - Abdomen Abdomen: Normal bowel sounds, Non tender, Non distended - Male Male : Deferred - Rectal Rectal: Deferred - Derm Derm: Normal color - Extremities Extremities: No deformity - Neuro Neuro: Alert and oriented X 3, integrity engineer 2-12 intact, No motor deficit, No sensory deficit, Normal speech Results - Vitals Vitals: Vital Signs - 24 hr 07/27/22 07/27/22 07/27/22 10:34 10:55 12:47 Temperature 37.4 C Heart Rate 92 83 81 Respiratory 18 18 18 Rate Blood Pressure 128/107 H 129/100 H O2 Saturation 98 97 100 Oxygen O2 Source Room air - EKG (time done) 1034 EKG releavant findings:: EKG personally interpreted by author of this note. Relevant findings are: Sinus rhythm with rate 86 bpm. Normal axis. Normal OK, QRS, QTc intervals. No ST segment elevations or T wave inversions. - Labs Labs: Laboratory Tests 07/27/22 07/27/22 07/27/22 11:02 11:02 11:02 WBC 6.8 RBC 4.63 L Hgb 13.8 L Hct 41.4 L MCV 89.4 MCH 29.8 MCHC 33.3 RDW 12.8 Plt Count 252 MPV 8.9 Neut # (Auto) 5.5 Lymph # (Auto) 0.5 L [place] # (Auto) 0.4 Eos # (Auto) 0.3 Baso # (Auto) 0.0 Absolute Nucleated RBC 0.00 Nucleated RBC % 0.0 PT 11.9 INR 1.1 Sodium 136 Potassium 3.6 Chloride 98 L Carbon Dioxide 29 Anion Gap 9.0 BUN 16 Creatinine 0.9 Estimated GFR (MDRD) 89 Glucose 119 H Calcium 8.5 Total Bilirubin 0.6 AST 28 ALT 32 Alkaline Phosphatase 46 Total Creatine Kinase 654 H Total Protein 7.4 Albumin 3.6 Globulin 3.8 Albumin/Globulin Ratio 0.9 L Lipase 35 Urine Opiates Screen Ur Oxycodone Screen Urine Methadone Screen Ur Propoxyphene Screen Ur Barbiturates Screen Ur Tricyclics Screen Ur Phencyclidine Scrn Ur Amphetamine Screen U Methamphetamines Scrn U Benzodiazepines Scrn Urine Cocaine Screen U Cannabinoids Screen Ethyl Alcohol < 5.0 07/27/22 13:10 WBC RBC Hgb Hct MCV MCH MCHC RDW Plt Count MPV Neut # (Auto) Lymph # (Auto) [place] # (Auto) Eos # (Auto) Baso # (Auto) Absolute Nucleated RBC Nucleated RBC % PT INR Sodium Potassium Chloride Carbon Dioxide Anion Gap BUN Creatinine Estimated GFR (MDRD) Glucose Calcium Total Bilirubin AST ALT Alkaline Phosphatase Total Creatine Kinase Total Protein Albumin Globulin Albumin/Globulin Ratio Lipase Urine Opiates Screen NEGATIVE Ur Oxycodone Screen NEGATIVE Urine Methadone Screen NEGATIVE Ur Propoxyphene Screen NEGATIVE Ur Barbiturates Screen NEGATIVE Ur Tricyclics Screen NEGATIVE Ur Phencyclidine Scrn NEGATIVE Ur Amphetamine Screen POSITIVE H U Methamphetamines Scrn POSITIVE H U Benzodiazepines Scrn NEGATIVE Urine Cocaine Screen NEGATIVE U Cannabinoids Screen POSITIVE H Ethyl Alcohol PD Medical Decision Making - ED course Complexity details: reviewed results, re-evaluated patient, d/w patient Reviewed Lab Results: Patient has a mild elevation in CK consistent with either dehydration or recent methamphetamine use. Social Determinants of Health: Polysubstance abuse ED course: Patient 52-year-old male presenting to the emergency department chief complaints chest pain, associated nausea vomiting. Afebrile, hemodynamically stable. Patient somnolent but arousable on arrival to the emergency department. No focal or lateralizing neurologic deficits. Abdominal exam benign. Patient did endorse for regular use of cannabinoid. Comprehensive labs demonstrated a mild elevation in CK but no other significant electrolyte abnormality. He was given multiple liters of fluid and dose ondansetron with no further nausea or vomiting. His urine drug screen was positive for amphetamine/methamphetamine metabolites and cannabinoids. His chest x-ray was nonacute and the CT scan of his abdomen pelvis demonstrated constipation without any indications of acute intra-abdominal abnormality or obstruction. Patient tolerated a p.o. trial while in the emergency department. At this time will discharge with prescription ondansetron and encouragement to discontinue use of amphetamines/decrease use of cannabinoids. Will encourage careful follow-up with primary care or return to the emergency department as needed. Departure - Departure Disposition: 01 Home, Self Care Clinical Impression: Nausea & vomiting, Methamphetamine abuse Instructions: ED Nausea Vomiting Prescriptions: Ondansetron Odt [Zofran] 4 mg TL Q6H PRN #10 tablet PRN Reason: Nausea / Vomiting Comments: Thank you for allowing us to care for you today At [facility]. Today in the emergency department your evaluated for any possible life- threatening medical emergency. All the testing performed in the emergency department including your EKG, chest x-ray, the CT scan of your abdomen and pelvis, your urine studies and Blood work were all very reassuring. I would like to strongly encourage you to discontinue use of methamphetamine,The substance is highly addictive and injuries to the body. I also like to encourage you to decrease your use of cannabinoid/tetrahydrocannabinol containing products as these can exacerbate nausea vomiting if used in high potency and high frequency. I will be discharging us a medication to help with any ongoing nausea. Your CT scan did show Some constipation and I would like you to increase your intake and fiber full foods and natural probiotics. Please make a follow-up appoint with your primary care doctor. If it anytime you develop any new or worsening symptoms please not hesitate to return.
[2022-07-27 10:56] VITALS: BP 129/100
[2022-07-27 11:07] LABS: BASOPHILS % (AUTO) 0.3 %; EOSINOPHILS # (AUTO) 0.3 10^3/uL (0.0-0.7); EOSINOPHILS % (AUTO) 4.3 %; HCT - HEMATOCRIT 41.4 % (42.0-52.0); HGB - HEMOGLOBIN 13.8 g/dL (14.0-18.0); LYMPHOCYTES # (AUTO) 0.5 10^3/uL (1.5-3.5); LYMPHOCYTES % (AUTO) 7.1 %; MEAN CORPUSCULAR HEMOGLOBIN 29.8 pg (27.0-31.0); MEAN CORPUSCULAR HGB CONC 33.3 g/dL (32.0-36.0); MEAN CORPUSCULAR VOLUME 89.4 fL (80.0-94.0); MEAN PLATELET VOLUME 8.9 fL (7.4-11.4); MONOCYTES # (AUTO) 0.4 10^3/uL (0.0-1.0); MONOCYTES % (AUTO) 6.1 %; NEUTROPHILS # (AUTO) 5.5 10^3/uL (1.5-6.6); NEUTROPHILS % (AUTO) 82.1 %; PLT - PLATELET COUNT 252 10^3/uL (130-450); RED BLOOD COUNT 4.63 10^6/uL (4.70-6.10); RED CELL DISTRIBUTION WIDTH 12.8 % (12.0-15.0); WHITE BLOOD COUNT 6.8 x10^3/uL (4.8-10.8)
[2022-07-27 11:14] LABS: INR 1.1 (0.8-1.2); PT - PROTHROMBIN TIME 11.9 secs (9.9-12.6)
[2022-07-27 11:19] LABS: ALBUMIN 3.6 g/dL (3.2-5.5); ALBUMIN/GLOBULIN RATIO 0.9 (1.0-2.2); ALKALINE PHOSPHATASE 46 IU/L (42-121); ALT ALANINE AMINOTRANSFERASE 32 IU/L (10-60); AST ASPARTATE AMINOTRANSFERASE 28 IU/L (10-42); BILIRUBIN,TOTAL 0.6 mg/dL (0.2-1.0); BUN - BLOOD UREA NITROGEN 16 mg/dL (6-20); CALCIUM 8.5 mg/dL (8.5-10.3); CARBON DIOXIDE - CO2 29 mmol/L (21-32); CHLORIDE 98 mmol/L (101-111); CK- CREATINE KINASE 654 IU/L (22-269); CREATININE 0.9 mg/dL (0.6-1.2); ETOH - ETHANOL < 5.0 mg/dL; GFR - MDRD 89 (>89); GLUCOSE 119 mg/dL (70-100); LIPASE 35 U/L (22-51); POTASSIUM 3.6 mmol/L (3.5-5.0); SODIUM 136 mmol/L (135-145); TOTAL PROTEIN 7.4 g/dL (6.7-8.2)
[2022-07-27] MEDS: ONDANSETRON 4 MG/2 ML VIAL IVP STA (11:33)
[2022-07-27] MEDS: SODIUM CHLORIDE 0.9% 1,000 ML IV STA ×2 (11:33→12:03)
[2022-07-27] MEDS ORDERED: iohexoL-300 100 ML VIAL ONE (12:04)
--- NOTE | 2022-07-27 13:00 | XRAY Report ---
PROCEDURE: Chest 1 View X-Ray INDICATIONS: chest pain TECHNIQUE: One view of the chest was acquired. COMPARISON: Chest x-ray 12/05/2018 FINDINGS: Surgical changes and devices: None. Lungs and pleura: No pleural effusions or pneumothorax. Lungs are clear. Mediastinum: Mediastinal contours appear normal. Heart size is normal. Bones and chest wall: No suspicious bony lesions. Overlying soft tissues appear unremarkable. IMPRESSION: No acute pulmonary process. Reviewed by: Nicole Lizarraga MD on 07/27/2022 12:59 PM PDT Approved by: Nicole Lizarraga MD on 07/27/2022 12:59 PM PDT Station ID: [id number]
--- NOTE | 2022-07-27 13:05 | CT Report ---
PROCEDURE: ABDOMEN/PELVIS W INDICATIONS: abd pain, n/v CONTRAST: 100ml Omnipaque 300 TECHNIQUE: After the administration of IV contrast, 5 mm thick sections acquired from the diaphragms to the symp hysis. 5 mm thick coronal and sagittal reformats were acquired. For radiation dose reduction, the f ollowing was used: automated exposure control, adjustment of mA and/or kV according to patient size. COMPARISON: None. FINDINGS: Image quality: Excellent. ABDOMEN: Lung bases: Lung bases are clear. Heart size is normal. Solid organs: Liver and spleen are normal in size and enhancement. Gallbladder is unremarkable Jose Angel iary system is non dilated. Pancreas enhances normally. No adrenal nodules. Kidneys demonstrate no rmal size and enhancement, without hydronephrosis. Peritoneum and bowel: Bowel loops demonstrate normal wall thickness and caliber. Prominent colonic stool is present. No free fluid or air. Nodes and vessels: No retroperitoneal or mesenteric adenopathy by size criteria. Aorta and inferior vena cava are normal in size. Miscellaneous: No ventral hernias. PELVIS: Genitourinary: Bladder wall thickness is normal. Miscellaneous: Fat-containing inguinal hernias are present. Bones: No suspicious bony lesions. No vertebral body compression fractures. IMPRESSION: Prominent colonic stool consistent with constipation. No obstruction. Reviewed by: Nicole Lizarraga MD on 07/27/2022 1:04 PM PDT Approved by: Nicole Lizarraga MD on 07/27/2022 1:04 PM PDT Station ID: [id number]
[2022-07-27 13:16] LABS: MUDS CUTOFF CONCENTRATIONS CUTOFF CONC BELOW:
[2022-07-27 13:30] LABS: AMPHETAMINE SCREEN,URINE POSITIVE (NEGATIVE); METHAMPHETAMINES SCREEN, URINE POSITIVE (NEGATIVE); THC CANNABINOID SCREEN, URINE POSITIVE (NEGATIVE)
[2022-07-27 13:31] LABS: BARBITURATE SCREEN,UR NEGATIVE (NEGATIVE); BENZODIAZEPINES SCREEN, URINE NEGATIVE (NEGATIVE); COCAINE SCREEN URINE NEGATIVE (NEGATIVE); METHADONE SCREEN, URINE NEGATIVE (NEGATIVE); OPIATE SCREEN, URINE NEGATIVE (NEGATIVE); OXYCODONE SCREEN, URINE NEGATIVE (NEGATIVE); PROPOXYPHENE SCREEN, URINE NEGATIVE (NEGATIVE); TRICYCLIC ANTIDEPRESSANT,URINE NEGATIVE (NEGATIVE)
== END 2022-07-27 14:15 | disposition home or self-care (01) ==
LOC: EDUNIT# → ED 10:25
DX: R11.2 Nausea with vomiting, unspecified (principal); F15.10 Other stimulant abuse, uncomplicated; F17.200 Nicotine dependence, unspecified, uncomplicated; Z79.899 Other long term (current) drug therapy
CPT/HCPCS: 36415; 71045; 74177; 80053; 80306; 80320; 82550; 83690; 85025; 85610; 93005; 96361; 96374; 99284; Q9967

== ENCOUNTER 2022-10-09 03:35 | Emergency (ER) | payer MEDICAID ==
[2022-10-09 03:51] VITALS: BP 150/103
--- NOTE | 2022-10-09 05:25 | ED Physician Documentation ---
History of Present Illness - Stated complaint Stated Complaint: BOTH FEET PX - Chief complaint Chief Complaint: General - History obtained from History obtained from: Patient - Additonal information Additional information: 52-year-old homeless man presents for blisters on his feet. No other complaints. PD PAST MEDICAL HISTORY - Past Medical History Cardiovascular: None Respiratory: None Neuro: None Endocrine/Autoimmune: None GI: GERD : None HEENT: None Psych: Other Musculoskeletal: Osteoarthritis - Past Surgical History Past Surgical History: No - Present Medications Home Medications: Ambulatory Orders Medication Instructions Recorded Confirmed Omeprazole 20 mg PO DAILY #30 capsule. 10/08/19 10/18/21 Gabapentin [Neurontin] 300 mg PO TID 10/29/20 10/18/21 Fluoxetine HCl [Prozac] 20 mg PO DAILY 04/04/21 10/18/21 buPROPion [Wellbutrin Sr] 150 mg PO DAILY 04/04/21 10/18/21 Ondansetron Odt [Zofran] 4 mg TL Q6H PRN #10 tablet 07/27/22 - Allergies Allergies/Adverse Reactions: Allergies Allergy/AdvReac Type Severity Reaction Status Date / Time No Known Drug Allergies Allergy Verified 10/09/22 03:53 - Social History Does the pt smoke?: Yes Smoking Status: Current every day smoker Does the pt drink ETOH?: Yes Does the pt have substance abuse?: Yes - Immunizations Immunizations are current?: No - POLST Patient has POLST: No PD ED PE NORMAL - Vitals Vital signs reviewed: Yes - General General: Alert and oriented X 3, No acute distress, Other (Disheveled appearing) - HEENT HEENT: Atraumatic, PERRL, EOMI - Derm Derm: Normal color, Warm and dry - Extremities Extremities: Other (2+ DP pulses bilateral lower extremity. Blisters to soles of feet.) Results - Vitals Vitals: Vital Signs - 24 hr 10/09/22 03:45 Temperature 35.7 C L Heart Rate 79 Respiratory 19 Rate Blood Pressure 150/103 H O2 Saturation 99 Oxygen O2 Source Room air PD Medical Decision Making - ED course ED course: 52-year-old man presents for blisters to the soles of his feet. Provided him with dry socks and advised him to try to keep his feet dry and elevate whenever he is resting. No other complaints and his exam is benign. Plan to follow-up outpatient. Return precautions given Departure - Departure Disposition: 01 Home, Self Care Clinical Impression: Foot pain, bilateral Condition: Stable Comments: You were seen in the emergency department for blisters. Keep your feet dry if possible. Please follow-up with your primary care provider and return to the emergency department if you have any new or worsening symptoms or other concerns.
== END 2022-10-09 05:30 | disposition home or self-care (01) ==
LOC: ED 03:35
DX: M79.672 Pain in left foot (principal); M79.671 Pain in right foot; Z79.899 Other long term (current) drug therapy; F17.200 Nicotine dependence, unspecified, uncomplicated
CPT/HCPCS: 99281; 99283

== ENCOUNTER 2022-10-15 01:26 | Emergency (ER) | payer MEDICAID ==
--- NOTE | 2022-10-15 02:24 | ED Physician Documentation ---
History of Present Illness - Stated complaint Stated Complaint: LEG PX - Chief complaint Chief Complaint: General - History obtained from History obtained from: Patient - Additonal information Additional information: 52yM , undomiciled, p/w BL thigh pain he attributes to overuse. patient endorses significant cramping tonight while walking the street. He slept on the streets [place] yesterday. no specific injury or other complaints. Review of Systems Musculoskeletal: reports: Extremity pain PD PAST MEDICAL HISTORY - Past Medical History Cardiovascular: None Respiratory: None Neuro: None Endocrine/Autoimmune: None GI: GERD : None HEENT: None Psych: Other Musculoskeletal: Osteoarthritis - Past Surgical History Past Surgical History: No - Present Medications Home Medications: Ambulatory Orders Medication Instructions Recorded Confirmed Omeprazole 20 mg PO DAILY #30 capsule. 10/08/19 10/18/21 Gabapentin [Neurontin] 300 mg PO TID 10/29/20 10/18/21 Fluoxetine HCl [Prozac] 20 mg PO DAILY 04/04/21 10/18/21 buPROPion [Wellbutrin Sr] 150 mg PO DAILY 04/04/21 10/18/21 Ondansetron Odt [Zofran] 4 mg TL Q6H PRN #10 tablet 07/27/22 - Allergies Allergies/Adverse Reactions: Allergies Allergy/AdvReac Type Severity Reaction Status Date / Time No Known Drug Allergies Allergy Verified 10/15/22 01:41 - Social History Does the pt smoke?: Yes Smoking Status: Current every day smoker Does the pt drink ETOH?: Yes Does the pt have substance abuse?: Yes - Immunizations Immunizations are current?: No - POLST Patient has POLST: No PD ED PE NORMAL - Vitals Vital signs reviewed: Yes - General General: Alert and oriented X 3, No acute distress, Other (disheveled appearing) - HEENT HEENT: Atraumatic, PERRL, EOMI - Derm Derm: Normal color, Warm and dry - Extremities Extremities: No deformity, No tenderness to palpate, Normal ROM s pain, No edema, No calf tenderness / cord, Other (2+ DP and PT pulses BL LE. normal sensation and movement) - Neuro Neuro: No motor deficit, No sensory deficit Results - Vitals Vitals: Vital Signs - 24 hr 10/15/22 01:38 Temperature 35.0 C L Heart Rate 86 Respiratory 19 Rate Blood Pressure 130/96 H O2 Saturation 100 Oxygen O2 Source Room air PD Medical Decision Making - ED course ED course: 52yM p/w BL thigh soreness X few days, worsening tonight while walking out on the streets. no apparent injury on physical exam. symptomatic care discussed. provided resources for [facility] where he can stay at nighttime. return precautions given. Departure - Departure Clinical Impression: Thigh cramp Condition: Good Instructions: ED RICE Comments: You were seen in the emergency department for cramping to your thighs. You will benefit from rest, taking ibuprofen 600 mg every 6 hours as needed for pain, and applying ice for 20 minutes every hour. Return to the emergency department if you have other concerns. [facility] while you rest and recover.
[2022-10-15 05:12] VITALS: BP 135/80
== END 2022-10-15 05:12 | disposition home or self-care (01) ==
LOC: ED 01:26
DX: R25.2 Cramp and spasm (principal); F17.200 Nicotine dependence, unspecified, uncomplicated; Z59.02 Unsheltered homelessness
CPT/HCPCS: 99281; 99282

== ENCOUNTER 2022-11-06 21:37 | Outpatient (CLI) | payer MEDICAID | END 2022-11-06 23:59 | disposition critical access hospital (66) | LOC: EMS 21:37 | DX: M79.605 Pain in left leg (principal); M79.604 Pain in right leg; M79.672 Pain in left foot; M79.671 Pain in right foot; Z59.00 Homelessness unspecified | CPT/HCPCS: A0425; A0429 ==

== ENCOUNTER 2022-11-06 21:43 | Emergency (ER) | payer MEDICAID ==
[2022-11-06] MEDS ORDERED: PANTOPRAZOLE 40 MG TABLET PO STA (22:37)
--- NOTE | 2022-11-07 00:18 | ED Physician Documentation ---
History of Present Illness - Stated complaint Stated Complaint: LEG PX - Chief complaint Chief Complaint: Ext Problem - History obtained from History obtained from: Patient - Additonal information Additional information: Patient is a 52-year-old male who is undomiciled presenting for evaluation of bilateral feet pain. Patient states that he has been walking all day and his feet were hurting.Patient is also requesting a dose of Nexium. He denies abdominal pain, vomiting, diarrhea.Patient was sleeping prior to my evaluation and needed to be woken up for history and examination.He denies any injury. Review of Systems Constitutional: denies: Fever Cardiac: denies: Chest pain / pressure Respiratory: denies: Dyspnea GI: denies: Abdominal Pain Musculoskeletal: denies: Back pain Neurologic: denies: Headache, Head injury PD PAST MEDICAL HISTORY - Past Medical History Cardiovascular: None Respiratory: None Neuro: None Endocrine/Autoimmune: None GI: GERD : None HEENT: None Psych: Other Musculoskeletal: Osteoarthritis - Past Surgical History Past Surgical History: No - Present Medications Home Medications: Ambulatory Orders Medication Instructions Recorded Confirmed Omeprazole 20 mg PO DAILY #30 capsule. 10/08/19 10/18/21 Gabapentin [Neurontin] 300 mg PO TID 10/29/20 10/18/21 Fluoxetine HCl [Prozac] 20 mg PO DAILY 04/04/21 10/18/21 buPROPion [Wellbutrin Sr] 150 mg PO DAILY 04/04/21 10/18/21 Ondansetron Odt [Zofran] 4 mg TL Q6H PRN #10 tablet 07/27/22 - Allergies Allergies/Adverse Reactions: Allergies Allergy/AdvReac Type Severity Reaction Status Date / Time No Known Drug Allergies Allergy Verified 10/15/22 01:41 - Social History Does the pt smoke?: Yes Smoking Status: Current every day smoker Does the pt drink ETOH?: Yes Does the pt have substance abuse?: Yes - Immunizations Immunizations are current?: No - POLST Patient has POLST: No PD ED PE NORMAL - General General: Alert and oriented X 3, No acute distress, Well developed/nourished, Other (Slightly disheveled) - HEENT HEENT: Atraumatic - Neck Neck: Supple, no meningeal sign - Cardiac Cardiac: RRR, No murmur - Respiratory Respiratory: No respiratory distress, Clear bilaterally - Abdomen Abdomen: Soft, Non tender - Derm Derm: Warm and dry - Extremities Extremities: No deformity, No edema, Other (Extremities are warm and well perfused, no open wounds or signs of infection to the feet.) - Neuro Neuro: Alert and oriented X 3, No motor deficit, No sensory deficit, Normal speech Results - Vitals Vitals: Vital Signs - 24 hr 11/06/22 11/07/22 21:52 00:47 Temperature 36.7 C Heart Rate 80 70 Respiratory 20 19 Rate Blood Pressure 163/110 H 118/85 H O2 Saturation 100 97 Oxygen O2 Source Room air PD Medical Decision Making - ED course ED course: Patient presenting for evaluation of bilateral foot pain after walking all day. Neurovascularly intact with no tenderness noted on exam.No signs of infection. Patient was given a clean pair of socks. He also requested a dose of a PPI. Abdominal exam is benign. Patient has had previous ED visits with similar presentations. He is ambulatory at discharge. He is advised on concerning symptoms to return for. Departure - Departure Disposition: 01 Home, Self Care Clinical Impression: Bilateral foot pain Instructions: ED FRANCHESCA Comments: You can use acetaminophen as needed for pain. I would also recommend limiting the amount you are walking to help with your foot pain.I would recommend [facility]. Please return to the emergency department with any new concerns. Discharge Date/Time: 11/07/22 00:47
[2022-11-07 00:48] VITALS: BP 118/85
== END 2022-11-07 00:47 | disposition home or self-care (01) ==
LOC: EDBD → EDUNIT# → ED 21:43
DX: M79.672 Pain in left foot (principal); M79.671 Pain in right foot; F17.200 Nicotine dependence, unspecified, uncomplicated; Z59.02 Unsheltered homelessness
CPT/HCPCS: 99282; 99283; A9270

== ENCOUNTER 2022-12-14 16:50 | Emergency (ER) | payer MEDICAID ==
[2022-12-14 17:07] VITALS: BP 152/104
== END 2022-12-14 17:10 | disposition left against medical advice (07) ==
LOC: ED 16:50
DX: Z53.21 Procedure and treatment not carried out due to patient leaving prior to being seen by health care provider (principal)

== ENCOUNTER 2023-01-10 08:23 | Emergency (ER) | payer MEDICAID ==
[2023-01-10 08:39] VITALS: O2SAT 99
[2023-01-10] MEDS ORDERED: diphenhydrAMINE 25 MG CAPSULE PO STA (08:47)
--- NOTE | 2023-01-10 08:49 | ED Physician Documentation ---
History of Present Illness - Stated complaint Stated Complaint: BILAT FEET PX - Chief complaint Chief Complaint: General - History obtained from History obtained from: Patient - Additonal information Additional information: 52-year-old male with history amphetamine use, homelessness presents for bilateral foot pain. Patient states that he has been walking a lot because he is homeless and his feet hurt. He is also complaining of scalp and ear itching. No medications taken prior to arrival. Does endorse amphetamine use within the last week. Review of Systems Constitutional: denies: Fever, Chills Eyes: denies: Loss of vision Cardiac: denies: Chest pain / pressure, Palpitations, Calf pain GI: denies: Abdominal Pain, Nausea, Vomiting : denies: Dysuria, Frequency, Hesitancy Skin: reports: Rash Musculoskeletal: reports: Extremity pain. denies: Neck pain, Back pain, Joint pain, Extremity swelling Neurologic: denies: Generalized weakness, Focal weakness, Numbness PD PAST MEDICAL HISTORY - Past Medical History Past Medical History: Yes Cardiovascular: None Respiratory: None Neuro: None Endocrine/Autoimmune: None GI: GERD : None HEENT: None Psych: Depression Musculoskeletal: Osteoarthritis - Past Surgical History Past Surgical History: No - Present Medications Home Medications: Ambulatory Orders Medication Instructions Recorded Confirmed Omeprazole 20 mg PO DAILY #30 capsule. 10/08/19 01/10/23 Gabapentin [Neurontin] 300 mg PO TID 10/29/20 01/10/23 Fluoxetine HCl [Prozac] 20 mg PO DAILY 04/04/21 01/10/23 buPROPion [Wellbutrin Sr] 150 mg PO DAILY 04/04/21 01/10/23 Ondansetron Odt [Zofran] 4 mg TL Q6H PRN #10 tablet 07/27/22 01/10/23 - Allergies Allergies/Adverse Reactions: Allergies Allergy/AdvReac Type Severity Reaction Status Date / Time No Known Drug Allergies Allergy Verified 01/10/23 08:33 - Social History Does the pt smoke?: Yes Smoking Status: Current every day smoker Does the pt drink ETOH?: Yes Does the pt have substance abuse?: Yes - Immunizations Immunizations are current?: No - POLST Patient has POLST: No PD ED PE NORMAL - Vitals Vital signs reviewed: Yes - General General: Alert and oriented X 3, No acute distress, Other (Disheveled, hygiene poor) - HEENT HEENT: Atraumatic, Ears normal, Other (Tympanic membrane's normal) - Neck Neck: Supple, no meningeal sign - Cardiac Cardiac: RRR, No murmur, Strong equal pulses - Respiratory Respiratory: No respiratory distress, Clear bilaterally - Abdomen Abdomen: Soft, Non tender, Non distended - Derm Derm: Normal color, Warm and dry, No rash - Extremities Extremities: No deformity, No tenderness to palpate, Normal ROM s pain, No edema - Neuro Neuro: Alert and oriented X 3, dietary tech 2-12 intact, No motor deficit - Psych Psych: Normal mood, Normal affect Results - Vitals Vitals: Vital Signs - 24 hr 01/10/23 01/10/23 08:33 08:53 Temperature 36.6 C 36.6 C Heart Rate 70 72 Respiratory 16 16 Rate Blood Pressure 137/90 H 133/88 H O2 Saturation 99 99 Oxygen O2 Source Room air PD Medical Decision Making - ED course Complexity details: reviewed old records, reviewed results, re-evaluated patient, considered differential, d/w patient ED course: Bilateral foot pain, patient is homeless and spends the day walking around. Fe et are dirty but there is no swelling, no deformity, no trauma to indicate need for imaging. Patient states that his scalp and his ears are itching and he is concerned that there are bugs inside. There are no bugs to be seen on the patient's scalp or in his ears. Tympanic membrane's are intact and there is no excoriations to suggest otitis externa or otitis media. Patient was given Benadryl for his itching, he was advised that he would need to stop using amphetamines or his itching and "bugs" would never get better. Referred to local clinics in the area. Departure - Departure Disposition: 01 Home, Self Care Clinical Impression: Foot pain, bilateral Condition: Stable Instructions: ED RICE Forms: PCP List Discharge Date/Time: 01/10/23 09:03
[2023-01-10 09:03] VITALS: BP 133/88
== END 2023-01-10 09:03 | disposition home or self-care (01) ==
LOC: ED 08:23
DX: M79.672 Pain in left foot (principal); M79.671 Pain in right foot; Z59.00 Homelessness unspecified; F17.200 Nicotine dependence, unspecified, uncomplicated
CPT/HCPCS: 99282; A9270

== ENCOUNTER 2023-01-31 22:54 | Outpatient (CLI) | payer MEDICAID | END 2023-01-31 22:55 | disposition critical access hospital (66) | LOC: EMS 22:54 | DX: R23.8 Other skin changes (principal); M79.672 Pain in left foot; M79.671 Pain in right foot | CPT/HCPCS: A0425; A0429; A0999 ==

== ENCOUNTER 2023-03-07 20:03 | Outpatient (CLI) | payer MEDICAID | END 2023-03-07 23:59 | disposition critical access hospital (66) | LOC: EMS 20:03 | DX: R07.81 Pleurodynia (principal); Z59.02 Unsheltered homelessness | CPT/HCPCS: A0425; A0429; A0999 ==

== ENCOUNTER 2023-03-07 20:18 | Emergency (ER) | payer MEDICAID ==
[2023-03-07 20:26] VITALS: BP 136/90; O2SAT 97
[2023-03-07] MEDS ORDERED: IBUPROFEN 600 MG TABLET PO STA (20:53)
--- NOTE | 2023-03-07 20:53 | ED Physician Documentation ---
History of Present Illness - Stated complaint Stated Complaint: RIB PAIN - Chief complaint Chief Complaint: General - Additonal information Additional information: Patient 52-year-old male brought into the emergency department for right-sided rib pain. Its been hurting him x1 day. He attributes it to sleeping on the concrete at the homeless long-term. During my interview immediately requests courtesy [employer] [facility]. Denies other acute complaints. Review of Systems Constitutional: denies: Fever Eyes: denies: Loss of vision Ears: denies: Loss of hearing Nose: denies: Rhinorrhea / runny nose Throat: denies: Dental pain / toothache Cardiac: denies: Chest pain / pressure Respiratory: denies: Dyspnea PD PAST MEDICAL HISTORY - Past Medical History Cardiovascular: None Respiratory: None Neuro: None Endocrine/Autoimmune: None GI: GERD : None HEENT: None Psych: Depression Musculoskeletal: Osteoarthritis - Past Surgical History Past Surgical History: No - Present Medications Home Medications: Ambulatory Orders Medication Instructions Recorded Confirmed Acetaminophen [Tylenol] 650 mg PO Q6H PRN #30 tab 02/06/23 Clotrimazole 1% Cream [Lotrimin 1% 1 applic TP BID #15 gm 02/06/23 Cream] Acetaminophen [Tylenol] 650 mg PO Q6H PRN #30 tablet 03/07/23 Ibuprofen [Motrin] 800 mg PO Q8H PRN #30 tablet 03/07/23 - Allergies Allergies/Adverse Reactions: Allergies Allergy/AdvReac Type Severity Reaction Status Date / Time No Known Drug Allergies Allergy Verified 03/07/23 20:20 - Social History Does the pt smoke?: Yes Smoking Status: Current every day smoker Does the pt drink ETOH?: Yes Does the pt have substance abuse?: Yes - Immunizations Immunizations are current?: No - POLST Patient has POLST: No PD ED PE NORMAL - General General: Alert and oriented X 3 - HEENT HEENT: Atraumatic - Neck Neck: Supple, no meningeal sign - Cardiac Cardiac: RRR, No gallop - Respiratory Respiratory: No respiratory distress, Clear bilaterally, Other - Abdomen Abdomen: Normal bowel sounds Results - Vitals Vitals: Vital Signs - 24 hr 03/07/23 20:20 Temperature 36.8 C Heart Rate 70 Respiratory 16 Rate Blood Pressure 136/90 H O2 Saturation 97 Oxygen O2 Source Room air PD Medical Decision Making - ED course Complexity details: considered differential, d/w patient ED course: Patient 52-year-old male coming to the emergency department via EMS with right rib pain. States he has been having pain on the right side of his rib cage from sleeping on the concrete of the floor of the homeless long-term. No trauma. No significant tenderness to palpation and clear aeration in all lung silvestre. During my interview patient immediately requested a courtesy taxi back to the long-term. He was provided ibuprofen and discharged. Given that there is no courtesy taxi available I believe registration contacted the printer slotter feeder's department to see if they would be amenable to taking him back to the long-term. He was encouraged to follow-up with primary care or return as needed. Departure - Departure Disposition: 01 Home, Self Care Clinical Impression: Homeless Prescriptions: Ibuprofen [Motrin] 800 mg PO Q8H PRN #30 tablet PRN Reason: PAIN &/OR FEVER Acetaminophen [Tylenol] 650 mg PO Q6H PRN #30 tablet PRN Reason: PRN PAIN &/OR FEVER Comments: Thank you for allowing us to care for you today [facility]. Please follow-up with your primary care doctor when able. If you have new or worsening symptoms you are always welcome to return.
== END 2023-03-07 21:01 | disposition home or self-care (01) ==
LOC: EDUNIT# → ED 20:18
DX: R07.81 Pleurodynia (principal); Z59.01 Sheltered homelessness; F17.200 Nicotine dependence, unspecified, uncomplicated
CPT/HCPCS: 99282; 99283; A9270

== ENCOUNTER 2023-03-08 05:14 | Emergency (ER) | payer MEDICAID ==
--- NOTE | 2023-03-08 05:46 | ED Physician Documentation ---
History of Present Illness - Stated complaint Stated Complaint: NOT FEELING WELL - Chief complaint Chief Complaint: General - Additonal information Additional information: Patient 52-year-old male presenting to the emergency department with chief complaint of homelessness. Seen here last night for right-sided rib pain which she attributed to discomfort that arose from sleeping on the concrete floor at a local area intermediate in [place]. States was unable to arrange a ride back to [facility] last night with the packing and final assembly supervisor's department. Has been outside all night. States "I cannot ride the bus, they will not let me". Requests a warm drink. When asked about how he intends to get to [place] today says "I do not know, someone will have to get me a cab". Review of Systems Constitutional: denies: Fever Eyes: denies: Loss of vision Ears: denies: Loss of hearing Throat: denies: Dental pain / toothache Cardiac: denies: Chest pain / pressure Respiratory: denies: Dyspnea GI: denies: Abdominal Pain : denies: Dysuria Skin: denies: Rash Musculoskeletal: denies: Neck pain Neurologic: denies: Generalized weakness Psychiatric: denies: Depressed Endocrine: denies: Polydypsia PD PAST MEDICAL HISTORY - Past Medical History Past Medical History: Yes Cardiovascular: None Respiratory: None Neuro: None Endocrine/Autoimmune: None GI: GERD : None HEENT: None Psych: Depression Musculoskeletal: Osteoarthritis - Past Surgical History Past Surgical History: No - Present Medications Home Medications: Ambulatory Orders Medication Instructions Recorded Confirmed Acetaminophen [Tylenol] 650 mg PO Q6H PRN #30 tablet 03/07/23 03/08/23 Ibuprofen [Motrin] 800 mg PO Q8H PRN #30 tablet 03/07/23 03/08/23 Omeprazole Magnesium 20 mg PO DAILY 03/08/23 03/08/23 - Allergies Allergies/Adverse Reactions: Allergies Allergy/AdvReac Type Severity Reaction Status Date / Time No Known Drug Allergies Allergy Verified 03/08/23 05:28 - Social History Does the pt smoke?: Yes Smoking Status: Current every day smoker Does the pt drink ETOH?: Yes Does the pt have substance abuse?: Yes Substance Use and Type: Marijuana, Meth - Immunizations Immunizations are current?: No - POLST Patient has POLST: No PD ED PE NORMAL - General General: Alert and oriented X 3 - HEENT HEENT: Atraumatic - Neck Neck: Supple, no meningeal sign - Respiratory Respiratory: No respiratory distress - Male Male : Deferred - Rectal Rectal: Deferred - Derm Derm: Normal color - Extremities Extremities: No deformity - Neuro Neuro: Alert and oriented X 3, classer 2-12 intact, No motor deficit, Normal speech Results - Vitals Vitals: Vital Signs - 24 hr 03/08/23 05:28 Temperature 36.3 C L Heart Rate 62 Respiratory 18 Rate Blood Pressure 139/106 H O2 Saturation 100 Oxygen O2 Source Room air PD Medical Decision Making - ED course Complexity details: d/w patient ED course: Patient 52-year-old male presenting to the emergency department with no medical chief complaint but rather complaint of homelessness and feeling cold after being out in the cold all night. Was evaluated in our facility yesterday for right-sided rib pain that was nontraumatic in nature. Afebrile, hemodynamically stable. Provided warm blankets and allowed to rest in the emergency department for approximately 1 hour prior to discharge. Return precautions given. Departure - Departure Clinical Impression: Homeless Comments: Please follow-up with your primary care doctor as needed.
[2023-03-08 07:08] VITALS: BP 141/96; O2SAT 98
== END 2023-03-08 07:06 | disposition home or self-care (01) ==
LOC: ED 05:14
DX: Z59.00 Homelessness unspecified (principal); F17.200 Nicotine dependence, unspecified, uncomplicated
CPT/HCPCS: 99281; 99282

== ENCOUNTER 2023-04-04 02:13 | Emergency (ER) | payer MEDICAID ==
[2023-04-04 02:28] VITALS: BP 157/110; O2SAT 97
--- NOTE | 2023-04-04 02:31 | ED Physician Documentation ---
History of Present Illness - Stated complaint Stated Complaint: "I'M COLD." - Chief complaint Chief Complaint: General - History obtained from History obtained from: Patient - Additonal information Additional information: The patient presents the emergency department chief complaint of "I am cold". The patient has a longstanding history of homelessness and usually stays at the [facility] but for some reason, did not get to the [facility] tonight. He has been out in the cold and states that he wanted to come in because is too cold outside. The patient denies any medical complaints. He states he has not been ill with anything. He denies chest pain, shortness of breath, nausea, vomiting, or diarrhea. No other medical concerns. PD PAST MEDICAL HISTORY - Past Medical History Past Medical History: Yes Cardiovascular: None Respiratory: None Neuro: None Endocrine/Autoimmune: None GI: GERD : None HEENT: None Psych: Depression Musculoskeletal: Osteoarthritis - Past Surgical History Past Surgical History: No - Present Medications Home Medications: Ambulatory Orders Medication Instructions Recorded Confirmed Acetaminophen [Tylenol] 650 mg PO Q6H PRN #30 tablet 03/07/23 04/04/23 Ibuprofen [Motrin] 800 mg PO Q8H PRN #30 tablet 03/07/23 04/04/23 Omeprazole Magnesium 20 mg PO DAILY 03/08/23 04/04/23 - Allergies Allergies/Adverse Reactions: Allergies Allergy/AdvReac Type Severity Reaction Status Date / Time No Known Drug Allergies Allergy Verified 04/04/23 02:25 - Social History Does the pt smoke?: Yes Smoking Status: Current every day smoker Does the pt drink ETOH?: Yes Does the pt have substance abuse?: Yes - Immunizations Immunizations are current?: No - POLST Patient has POLST: No PD ED PE NORMAL - Vitals Vital signs reviewed: Yes - General General: No acute distress, Well developed/nourished, Other (Alert, answers questions appropriately. Disheveled.) - HEENT HEENT: Atraumatic, PERRL, EOMI, Moist mucous membranes - Neck Neck: Supple, no meningeal sign - Cardiac Cardiac: RRR, No murmur - Respiratory Respiratory: No respiratory distress, Clear bilaterally - Derm Derm: Warm and dry, Other (Poor skin hygiene, but no obvious rash.) - Extremities Extremities: No deformity - Neuro Neuro: Other (Ambulatory, not grossly intoxicated, neurologic exam is grossly intact.) - Psych Psych: Normal mood, Normal affect Results - Vitals Vitals: Vital Signs - 24 hr 04/04/23 02:15 Temperature 36.9 C Heart Rate 75 Respiratory 16 Rate Blood Pressure 157/110 H O2 Saturation 97 Oxygen O2 Source Room air PD Medical Decision Making - ED course Complexity details: considered differential, d/w patient ED course: The patient stated clearly that he was not here for medical reasons but simply because it was cold outside. I did not find, on my medical screening exam, any thing concerning for an emergent condition. The patient was given a cup of hot tea and allowed to sit in the lobby and warm up. We have discussed the usual indications for return. Departure - Departure Disposition: 01 Home, Self Care Clinical Impression: Homelessness, Sensation of feeling cold Condition: Stable Instructions: ED Hypothermia Prevention
== END 2023-04-04 02:52 | disposition home or self-care (01) ==
LOC: ED 02:13
DX: R44.8 Other symptoms and signs involving general sensations and perceptions (principal); F17.200 Nicotine dependence, unspecified, uncomplicated; Z59.02 Unsheltered homelessness
CPT/HCPCS: 99281; 99282

== ENCOUNTER 2023-06-12 05:09 | Outpatient (CLI) | payer MEDICAID | END 2023-06-12 23:59 | disposition critical access hospital (66) | LOC: EMS 05:09 | DX: M79.672 Pain in left foot (principal); M79.671 Pain in right foot; X31.XXXA Exposure to excessive natural cold, initial encounter | CPT/HCPCS: A0425; A0429; A0999 ==

== ENCOUNTER 2023-06-12 05:29 | Emergency (ER) | payer MEDICAID ==
--- NOTE | 2023-06-12 06:10 | ED Physician Documentation ---
History of Present Illness - Stated complaint Stated Complaint: COLD/FOOT PX - Chief complaint Chief Complaint: Ext Problem - History obtained from History obtained from: Patient, EMS - Additonal information Additional information: 52-year-old male with history of amphetamine abuse, homelessness, frequent presentations to the emergency department presents by EMS from [place] [employer] for feeling cold and bilateral foot pain. Patient was walking outside in his boxers and [facility] was called. Transported by EMS for feeling cold and bilateral foot pain. Review of Systems Constitutional: denies: Fever, Chills Musculoskeletal: reports: Extremity pain. denies: Neck pain, Back pain, Joint pain, Extremity swelling PD PAST MEDICAL HISTORY - Past Medical History Past Medical History: Yes Cardiovascular: None Respiratory: None Neuro: None Endocrine/Autoimmune: None GI: GERD : None HEENT: None Psych: Depression Musculoskeletal: Osteoarthritis - Past Surgical History Past Surgical History: No - Present Medications Home Medications: Ambulatory Orders Medication Instructions Recorded Confirmed No Known Home Medications 06/12/23 06/12/23 - Allergies Allergies/Adverse Reactions: Allergies Allergy/AdvReac Type Severity Reaction Status Date / Time No Known Drug Allergies Allergy Verified 06/12/23 18:33 - Social History Does the pt smoke?: Yes Smoking Status: Current every day smoker Does the pt drink ETOH?: Yes Does the pt have substance abuse?: Yes - Immunizations Immunizations are current?: No - POLST Patient has POLST: No PD ED PE NORMAL - Vitals Vital signs reviewed: Yes - General General: Alert and oriented X 3, No acute distress, Other (Disheveled, appears chronically unwell, older than stated age) - HEENT HEENT: Atraumatic - Neck Neck: Supple, no meningeal sign - Cardiac Cardiac: RRR, Strong equal pulses - Abdomen Abdomen: Soft, Non tender, Non distended Results - Vitals Vitals: Vital Signs - 24 hr 06/12/23 06/12/23 05:30 06:45 Temperature 36.6 C Heart Rate 88 72 Respiratory 18 16 Rate Blood Pressure 143/103 H 146/98 H O2 Saturation 97 98 Oxygen O2 Source Room air PD Medical Decision Making - ED course Complexity details: reviewed old records, reviewed results, re-evaluated patient, considered differential, d/w patient ED course: Brought in by EMS after [employer] were called, patient walking around barefoot in boxers around a gas station. Patient complaining of feeling cold and having foot pain. Core temperature 97.8, feet are warm, perfused, palpable DP pulses bilaterally. No indication for additional labs or imaging at this time. patient provided paper scrubs and discharged. Departure - Departure Disposition: 01 Home, Self Care Clinical Impression: Homelessness Extremity pain Qualifiers: Extremity pain location: lower extremity Laterality: bilateral Qualified Code(s): M79.604 - Pain in right leg Condition: Stable Instructions: ED Chronic Pain Management Forms: PCP List Discharge Date/Time: 06/12/23 08:15
[2023-06-12 07:08] VITALS: BP 146/98; O2SAT 98
== END 2023-06-12 08:15 | disposition home or self-care (01) ==
LOC: EDUNIT# → ED 05:29
DX: M79.672 Pain in left foot (principal); M79.671 Pain in right foot; F17.200 Nicotine dependence, unspecified, uncomplicated; Z59.00 Homelessness unspecified
CPT/HCPCS: 99283

== ENCOUNTER 2023-06-12 17:53 | Outpatient (CLI) | payer MEDICAID | END 2023-06-12 17:54 | disposition critical access hospital (66) | LOC: EMS 17:53 | DX: R41.82 Altered mental status, unspecified (principal) | CPT/HCPCS: A0425; A0429; A0999 ==

== ENCOUNTER 2023-06-12 18:10 | Emergency (ER) | payer MEDICAID ==
[2023-06-12] MEDS ORDERED: PANTOPRAZOLE 40 MG TABLET PO STA ×2 (18:20→19:24)
--- NOTE | 2023-06-12 18:20 | ED Physician Documentation ---
PD HPI CHEST PAIN - Stated complaint Stated Complaint: AMS - History obtained from History obtained from: Patient - Additional information Additional information: 52-year-old gentleman with history of homelessness and methamphetamine abuse p resents by ambulance for "altered mental status." Reportedly was acting aggressive outside of [facility] and not completely coherent so sent here for further evaluation and treatment. For me his chief complaint is chest discomfort consistent with prior episodes of reflux and wanting her refill of his omeprazole. He says he has not been using methamphetamine in 2 days. PD PAST MEDICAL HISTORY - Past Medical History Cardiovascular: None Respiratory: None Neuro: None Endocrine/Autoimmune: None GI: GERD : None HEENT: None Psych: Depression Musculoskeletal: Osteoarthritis - Past Surgical History Past Surgical History: No - Present Medications Home Medications: Ambulatory Orders Medication Instructions Recorded Confirmed No Known Home Medications 06/12/23 06/12/23 - Allergies Allergies/Adverse Reactions: Allergies Allergy/AdvReac Type Severity Reaction Status Date / Time No Known Drug Allergies Allergy Verified 06/12/23 18:33 - Social History Does the pt smoke?: Yes Smoking Status: Current every day smoker Does the pt drink ETOH?: Yes Does the pt have substance abuse?: Yes - Immunizations Immunizations are current?: No - POLST Patient has POLST: No PD ED PE NORMAL - Vitals Vital signs reviewed: Yes - General General: Alert and oriented X 3, No acute distress - HEENT HEENT: PERRL, EOMI - Neck Neck: Supple, no meningeal sign, No bony TTP - Cardiac Cardiac: RRR, No murmur - Respiratory Respiratory: No respiratory distress, Clear bilaterally - Abdomen Abdomen: Non tender - Extremities Extremities: No edema, No calf tenderness / cord - Neuro Neuro: Alert and oriented X 3 Eye Opening: Spontaneous Motor: Obeys Commands Verbal: Oriented GCS Score: 15 - Psych Psych: Other (Somewhat tangential, but technically alert and oriented x 3 and cooperative.) Results - Vitals Vitals: Vital Signs - 24 hr 06/12/23 06/12/23 18:29 18:32 Temperature 36.0 C L Heart Rate 97 87 Respiratory 20 16 Rate Blood Pressure 127/83 H 127/83 H O2 Saturation 100 99 Oxygen O2 Source Room air - EKG (time done) 1843 EKG releavant findings:: EKG personally interpreted by author of this note. Relevant findings are: Rate: Rate (enter#) (86) Rhythm: NSR Hardy: Normal Intervals: Normal [place] QRS: LVH Ischemia: Non specific changes. No: ST elevation c/w ischemia, ST depression - Labs Labs: Laboratory Tests 06/12/23 06/12/23 18:30 18:30 WBC 9.6 RBC 3.99 L Hgb 12.1 L Hct 36.0 L MCV 90.2 MCH 30.3 MCHC 33.6 RDW 12.6 Plt Count 246 MPV 9.2 Neut # (Auto) 5.9 Lymph # (Auto) 2.1 Mcdonald # (Auto) 1.0 Eos # (Auto) 0.5 Baso # (Auto) 0.0 Absolute Nucleated RBC 0.00 Nucleated RBC % 0.0 Sodium 140 Potassium 3.6 Chloride 104 Carbon Dioxide 27 Anion Gap 9.0 BUN 32 H Creatinine 1.1 Estimated GFR (MDRD) 71 L Glucose 129 H Calcium 9.2 Magnesium 1.7 Total Bilirubin 0.7 AST 61 H ALT 32 Alkaline Phosphatase 52 Total Creatine Kinase 2492 H* Troponin I High Sens 10.2 Total Protein 7.0 Albumin 4.0 Globulin 3.0 Albumin/Globulin Ratio 1.3 Lipase 22 TSH 1.12 Salicylates 2.4 Acetaminophen 0.1 Ethyl Alcohol < 10.0 PD Medical Decision Making - ED course ED course: 52-year-old gentleman presents for abnormal behaviors at [facility]. Here he is seemingly pretty normal albeit a bit tangential. He has an extensive history of methamphetamine use, and his only chief complaint is feeling like he has chest pain and wants a refill for his reflux medication. Workup demonstrates CBC with mild stable normocytic anemia, chemistry is notable for prerenal azotemia with normal creatinine and CK of 2492. This is not alarmingly elevated but is consistent with mild rhabdomyolysis for which she was administered 2 L of IV fluid here. Departure - Departure Disposition: 01 Home, Self Care Clinical Impression: Methamphetamine abuse, Dehydration Condition: Stable Record reviewed to determine appropriate education?: Yes Instructions: ED Dehydration, ED Drug Abuse General Comments: Pancho is seen today for some abnormal behaviors at [facility] consistent with methamphetamine intoxication. He has been here for several hours and has been calm and cooperative. He was mildly dehydrated with mild rhabdomyolysis and received 2 L of IV fluids. Recommend you stay away from methamphetamines and drink plenty of fluids. Return if worse. Follow-up with your primary care physician, next available appointment.
[2023-06-12 18:33] LABS: BASOPHILS % (AUTO) 0.3 %; EOSINOPHILS # (AUTO) 0.5 10^3/uL (0.0-0.7); EOSINOPHILS % (AUTO) 5.1 %; HGB - HEMOGLOBIN 12.1 g/dL (14.0-18.0); LYMPHOCYTES # (AUTO) 2.1 10^3/uL (1.5-3.5); LYMPHOCYTES % (AUTO) 22.4 %; MEAN CORPUSCULAR HEMOGLOBIN 30.3 pg (27.0-31.0); MEAN CORPUSCULAR HGB CONC 33.6 g/dL (32.0-36.0); MEAN CORPUSCULAR VOLUME 90.2 fL (80.0-94.0); MEAN PLATELET VOLUME 9.2 fL (7.4-11.4); MONOCYTES % (AUTO) 9.9 %; NEUTROPHILS # (AUTO) 5.9 10^3/uL (1.5-6.6); PLT - PLATELET COUNT 246 10^3/uL (130-450); RED BLOOD COUNT 3.99 10^6/uL (4.70-6.10); RED CELL DISTRIBUTION WIDTH 12.6 % (12.0-15.0); WHITE BLOOD COUNT 9.6 x10^3/uL (4.8-10.8)
--- NOTE | 2023-06-12 18:36 | XRAY Report ---
PROCEDURE: Chest 1V INDICATIONS: chest pain TECHNIQUE: One view of the chest was acquired. COMPARISON: 07/27/2022 FINDINGS: Surgical changes and devices: None. Lungs and pleura: An incomplete inspiratory result is noted, with low lung volumes and crowding of t he vascular markings. No focal infiltrates are seen. No large pneumothorax or large pleural effusion can be seen. Mediastinum: Mediastinal contours appear normal. Heart size is normal. Bones and chest wall: No suspicious bony lesions. Overlying soft tissues appear unremarkable. IMPRESSION: Low lung volumes, without an acute cardiopulmonary abnormality seen. Reviewed by: Blayne Collazo MD on 06/12/2023 5:35 PM [facility] Approved by: Blayne Collazo MD on 06/12/2023 5:35 PM [facility] Station ID: [id number]
[2023-06-12 18:52] LABS: ACETAMINOPHEN 0.1 ug/mL; ALBUMIN/GLOBULIN RATIO 1.3 (1.0-2.2); ALKALINE PHOSPHATASE 52 IU/L (42-121); ALT ALANINE AMINOTRANSFERASE 32 IU/L (10-60); AST ASPARTATE AMINOTRANSFERASE 61 IU/L (10-42); BILIRUBIN,TOTAL 0.7 mg/dL (0.2-1.0); BUN - BLOOD UREA NITROGEN 32 mg/dL (6-20); CALCIUM 9.2 mg/dL (8.5-10.3); CARBON DIOXIDE - CO2 27 mmol/L (21-32); CHLORIDE 104 mmol/L (101-111); CREATININE 1.1 mg/dL (0.6-1.3); ETOH - ETHANOL < 10.0 mg/dL; GFR - MDRD 71 (>89); GLUCOSE 129 mg/dL (74-104); LIPASE 22 U/L (11-82); MAGNESIUM 1.7 mg/dL (1.7-2.3); POTASSIUM 3.6 mmol/L (3.5-4.5); SALICYLATE 2.4 mg/dL; SODIUM 140 mmol/L (135-145)
[2023-06-12 18:53] LABS: TROPONIN I HIGH SENSITIVITY 10.2 ng/L (2.3-19.7)
[2023-06-12 19:02] LABS: THYROID STIMULATING HORMONE 1.12 uIU/mL (0.34-5.60)
[2023-06-12 19:04] LABS: CK- CREATINE KINASE 2492 IU/L (30-223)
[2023-06-12] MEDS ORDERED: SODIUM CHLORIDE 0.9% 1,000 ML IV STA ×2 (19:04)
[2023-06-12 21:07] VITALS: BP 123/82; O2SAT 100
== END 2023-06-12 21:15 | disposition home or self-care (01) ==
LOC: EDUNIT# → ED 18:10
DX: R07.89 Other chest pain (principal); R74.8 Abnormal levels of other serum enzymes; F15.10 Other stimulant abuse, uncomplicated; E86.0 Dehydration; M62.82 Rhabdomyolysis; R79.89 Other specified abnormal findings of blood chemistry; F17.200 Nicotine dependence, unspecified, uncomplicated; Z59.00 Homelessness unspecified; M79.672 Pain in left foot; M79.671 Pain in right foot
CPT/HCPCS: 36415; 71045; 80053; 80307; 80320; 80329; 82550; 83690; 83735; 84443; 84484; 85025; 93005; 96360; 99283; 99284; A9270

== ENCOUNTER 2023-07-28 17:06 | Outpatient (CLI) | payer MEDICAID | END 2023-07-28 23:59 | disposition critical access hospital (66) | LOC: EMS 17:06 | DX: M79.673 Pain in unspecified foot (principal) | CPT/HCPCS: A0425; A0429; A0999 ==

== ENCOUNTER 2023-07-28 17:24 | Emergency (ER) | payer MEDICAID ==
[2023-07-28 18:21] VITALS: BP 155/130; O2SAT 100
--- NOTE | 2023-07-28 19:11 | XRAY Report ---
PROCEDURE: Foot 1-2V BL INDICATIONS: bilateral foot pain w/ hx of arthritis TECHNIQUE: 2 views of the feet were acquired. COMPARISON: None. FINDINGS: Bones: No fractures or dislocations. No suspicious bony lesions. Plantar calcaneal enthesophytes. Soft tissues: No tibiotalar joint effusion. Achilles tendon appears normal. IMPRESSION: No acute bony abnormality. Reviewed by: Cristi Maldonado MD on 07/28/2023 7:10 PM PDT Approved by: Cristi Maldonado MD on 07/28/2023 7:10 PM PDT Station ID: [id number]
--- NOTE | 2023-07-28 19:38 | ED Physician Documentation ---
PD HPI SKIN - Stated complaint Stated Complaint: FEET PAIN - Chief complaint Chief Complaint: Wound - Additional information Additional information: 53-year-old gentleman who is transient at this point in time presents emergency department for bilateral feet pain. Patient says that he has been out in the cold a lot more than normal and has not taken any Tylenol ibuprofen because he does not have any access to this. Patient also says that he has been having a mild increase in cough does endorse an cigarette use Says that he is coughing up clear white phlegm. No shortness of breath no chest pain.. He is unsure if he had any fevers or chills no nausea or vomiting diarrhea. PD PAST MEDICAL HISTORY - Past Medical History Past Medical History: Yes Cardiovascular: None Respiratory: None Neuro: None Endocrine/Autoimmune: None GI: GERD : None HEENT: None Psych: Depression Musculoskeletal: Osteoarthritis - Past Surgical History Past Surgical History: No - Present Medications Home Medications: Ambulatory Orders Medication Instructions Recorded Confirmed No Known Home Medications 06/12/23 06/12/23 - Allergies Allergies/Adverse Reactions: Allergies Allergy/AdvReac Type Severity Reaction Status Date / Time No Known Drug Allergies Allergy Verified 06/12/23 18:33 - Social History Does the pt smoke?: Yes Smoking Status: Current every day smoker Does the pt drink ETOH?: Yes Does the pt have substance abuse?: Yes - Immunizations Immunizations are current?: No - POLST Patient has POLST: No PD ED PE NORMAL - Vitals Vital signs reviewed: Yes - General General: Alert and oriented X 3, No acute distress, Well developed/nourished - Neck Neck: Supple, no meningeal sign, No JVD - Cardiac Cardiac: RRR, No murmur, No gallop, Strong equal pulses - Respiratory Respiratory: No respiratory distress, Clear bilaterally - Derm Derm: Normal color, Warm and dry, Other - Extremities Extremities: No deformity, No tenderness to palpate, Normal ROM s pain, No edema Results - Vitals Vitals: Vital Signs - 24 hr 07/28/23 18:07 Temperature 37.4 C Heart Rate 84 Respiratory 19 Rate Blood Pressure 155/130 H O2 Saturation 100 Oxygen O2 Source Room air - Rads (name of study) Bilateral feet x-rays Relevant Findings:: Final report received, EMP independent interpretation of t est, Other (Negative for any acute abnormalities or findings) PD Medical Decision Making - ED course ED course: 53-year-old male presents emergency department for bilateral feet pain. Both feet were thoroughly examined by myself. Patient says that he has no history of neuropathy he does not have any signs symptoms of infection at this time he has what appears to be well intact blisters that are not infected or purulent with drainage. Blisters are minimal new socks given to the patient bilateral x-rays of both feet were complete for the order of the triage nurse and no acute abnormalities visualized on x-rays. Patient also complained of a mild cough I was not able to hear any abnormalities in his lungs or see him cough while he was here in the emergency department he was encouraged to quit smoking to help with this. All questions answered safe for discharge at this time he was given Tylenol for his feet pain. Departure - Departure Disposition: 01 Home, Self Care Clinical Impression: Pain in both feet Cough Qualifiers: Cough type: subacute Qualified Code(s): R05.2 - Subacute cough Instructions: ED Muscle Pain Leg Cramps, Quit Smoking Plan Comments: Thank you for trusting us with your care we have completed x-rays of both feet and we do not see any acute abnormalities or fractures at this time. You can alternate between Tylenol ibuprofen for any pain and discomfort we have given you new clean socks and also not seeing any signs or symptoms of infection of both your feet. You have a mild cough I would strongly encourage you to quit smoking to help with this. Forms: PCP List
[2023-07-28 19:57] LABS: B. PARAPERTUSSIS- RESP PCR PAN NOT DETECTED; B. PERTUSSIS- RESP PCR PANEL NOT DETECTED; C. PNEUMONIAE- RESP PCR PANEL NOT DETECTED; CORONAVIRUS 229E-RESP PCR NOT DETECTED; CORONAVIRUS HKU1-RESP PCR DETECTED; CORONAVIRUS NL63-RESP PCR NOT DETECTED; CORONAVIRUS OC43-RESP PCR NOT DETECTED; HUMAN METAPNEUMOVIRUS NOT DETECTED; INFLUENZA A- RESP PCR PANEL NOT DETECTED; INFLUENZA B - RESP PCR PANEL NOT DETECTED; M. PNEUMONIAE- RESP PCR PANEL NOT DETECTED; PARAINFLUENZA VIRUS 1 NOT DETECTED; PARAINFLUENZA VIRUS 2 NOT DETECTED; PARAINFLUENZA VIRUS 3 NOT DETECTED; PARAINFLUENZA VIRUS 4 NOT DETECTED; RHINOVIRUS/ENTEROVIRUS NOT DETECTED; RSV- RESP PCR PANEL NOT DETECTED; SARS-CoV-2 -RESP PCR PANEL NOT DETECTED
[2023-07-28] MEDS: ACETAMINOPHEN 325 MG TABLET PO STA (20:03)
== END 2023-07-28 20:16 | disposition home or self-care (01) ==
LOC: EDUNIT# → ED 17:24
DX: M79.672 Pain in left foot (principal); M79.671 Pain in right foot; R05.2 Subacute cough; F17.200 Nicotine dependence, unspecified, uncomplicated; Z11.52 Encounter for screening for COVID-19
CPT/HCPCS: 73620; 87633; 99283; 99284; A9270

== ENCOUNTER 2023-07-29 03:57 | Emergency (ER) | payer MEDICAID ==
--- NOTE | 2023-07-29 04:09 | ED Physician Documentation ---
History of Present Illness - Stated complaint Stated Complaint: HEADACHE - History obtained from History obtained from: Patient - Additonal information Additional information: 53yM just seen here earlier tonight for foot blisters presents after hanging out in the lobby all night, now stating he has a frontal headache. denies fnd. PD PAST MEDICAL HISTORY - Past Medical History Cardiovascular: None Respiratory: None Neuro: None Endocrine/Autoimmune: None GI: GERD : None HEENT: None Psych: Depression Musculoskeletal: Osteoarthritis - Past Surgical History Past Surgical History: No - Present Medications Home Medications: Ambulatory Orders Medication Instructions Recorded Confirmed No Known Home Medications 06/12/23 06/12/23 - Allergies Allergies/Adverse Reactions: Allergies Allergy/AdvReac Type Severity Reaction Status Date / Time No Known Drug Allergies Allergy Verified 06/12/23 18:33 - Social History Does the pt smoke?: Yes Smoking Status: Current every day smoker Does the pt drink ETOH?: Yes Does the pt have substance abuse?: Yes - Immunizations Immunizations are current?: No - POLST Patient has POLST: No PD ED PE NORMAL - Vitals Vital signs reviewed: Yes - General General: Alert and oriented X 3, No acute distress, Well developed/nourished - HEENT HEENT: Atraumatic, PERRL, EOMI - Neck Neck: Supple, no meningeal sign - Derm Derm: Normal color, Warm and dry - Neuro Neuro: Alert and oriented X 3, cvt rn 2-12 intact, No motor deficit, No sensory deficit, Normal speech Eye Opening: Spontaneous Motor: Obeys Commands Verbal: Oriented GCS Score: 15 Results - Vitals Vitals: Oxygen O2 Source Room air PD Medical Decision Making - ED course ED course: 53yM p/w tension headache with red flag symptoms. treated with tylenol. return precautions given. plan to f/u pcp. Departure - Departure Disposition: Home, Self Care Clinical Impression: Headache Condition: Stable Instructions: ED Headache Tension Comments: You were seen in the emergency department for headache and received tylenol. Please follow-up with your primary care provider and return to the emergency department if you have any new or worsening symptoms or other concerns.
[2023-07-29] MEDS: ACETAMINOPHEN 325 MG TABLET PO STA (04:19)
[2023-07-29 04:25] VITALS: BP 153/92; O2SAT 100
== END 2023-07-29 04:20 | disposition home or self-care (01) ==
LOC: ED 03:57
DX: R51.9 Headache, unspecified (principal); F17.200 Nicotine dependence, unspecified, uncomplicated
CPT/HCPCS: 99282; 99283; A9270

== ENCOUNTER 2023-07-31 17:53 | Outpatient (CLI) | payer MEDICAID | END 2023-07-31 23:59 | disposition critical access hospital (66) | LOC: EMS 17:53 | DX: R23.8 Other skin changes (principal); X58.XXXA Exposure to other specified factors, initial encounter; Y93.01 Activity, walking, marching and hiking; Z59.00 Homelessness unspecified | CPT/HCPCS: A0425; A0429; A0999 ==

== ENCOUNTER 2023-07-31 18:10 | Emergency (ER) | payer MEDICAID ==
[2023-07-31 18:22] VITALS: BP 126/93; O2SAT 100
--- NOTE | 2023-07-31 18:31 | ED Physician Documentation ---
History of Present Illness - Stated complaint Stated Complaint: BI LAT FEET PX - Chief complaint Chief Complaint: General - Additonal information Additional information: 53-year-old male here to this emergency department frequently with complaints of bilateral feet pain. Patient was here couple days ago when he was complaining to the triage nurse about the pain and she ordered bilateral foot x-rays and both were found to be negative. Patient comes back with bilateral feet pain he has not taken any Tylenol or ibuprofen for this no new falls no new trauma noted no abrasions or blisters PD PAST MEDICAL HISTORY - Past Medical History Cardiovascular: None Respiratory: None Neuro: None Endocrine/Autoimmune: None GI: GERD : None HEENT: None Psych: Depression Musculoskeletal: Osteoarthritis - Past Surgical History Past Surgical History: No - Present Medications Home Medications: Ambulatory Orders Medication Instructions Recorded Confirmed No Known Home Medications 06/12/23 07/29/23 - Allergies Allergies/Adverse Reactions: Allergies Allergy/AdvReac Type Severity Reaction Status Date / Time No Known Drug Allergies Allergy Verified 07/29/23 04:08 - Social History Does the pt smoke?: Yes Smoking Status: Current every day smoker Does the pt drink ETOH?: Yes Does the pt have substance abuse?: Yes - Immunizations Immunizations are current?: No - POLST Patient has POLST: No PD ED PE NORMAL - Vitals Vital signs reviewed: Yes - General General: Alert and oriented X 3, No acute distress, Well developed/nourished, Other - HEENT HEENT: Atraumatic - Derm Derm: Normal color, Warm and dry, No rash - Extremities Extremities: No deformity, No tenderness to palpate, Normal ROM s pain, No edema, No calf tenderness / cord, Other Results - Vitals Vitals: Vital Signs - 24 hr 07/31/23 07/31/23 18:12 18:42 Temperature 36.7 C 36.7 C Heart Rate 92 92 Respiratory 19 19 Rate Blood Pressure 126/93 H 126/93 H O2 Saturation 100 100 Oxygen O2 Source Room air PD Medical Decision Making - ED course ED course: 53 years old male presents emergency department for bilateral feet pain. I informed the patient that given that he was here couple days ago for similar c omplaint did not both x-rays were benign of both feet that he was safe for discharge at this time and he was told to alternate between Tylenol and ibuprofen for pain and discomfort. Patient was offered Tylenol here in the emergency department when he became quite hostile with staff he started throwing things and yelling at staff and cussing saying that this was a fake hospital and that he wanted to leave. Patient ended up being escorted out by security he refused Tylenol he is safe for discharge. Departure - Departure Disposition: Home, Self Care Clinical Impression: Pain in both feet Condition: Good Instructions: Ankle Dorsiflexion Plantarflexion Comments: I have attached some exercises to your paperwork to help with your feet pain. You can take Tylenol ibuprofen for your feet pain you have already received 650 mg of Tylenol here in the emergency department. Forms: PCP List Discharge Date/Time: 07/31/23 18:35
[2023-07-31] MEDS: ACETAMINOPHEN 325 MG TABLET PO STA (18:38)
== END 2023-07-31 18:35 | disposition home or self-care (01) ==
LOC: EDUNIT# → ED 18:10
DX: M79.672 Pain in left foot (principal); M79.671 Pain in right foot; F17.200 Nicotine dependence, unspecified, uncomplicated
CPT/HCPCS: 99283; A9270

== ENCOUNTER 2023-08-09 17:29 | Outpatient (CLI) | payer MEDICAID | END 2023-08-09 23:59 | disposition critical access hospital (66) | LOC: EMS 17:29 | DX: R06.00 Dyspnea, unspecified (principal); R20.2 Paresthesia of skin | CPT/HCPCS: A0425; A0429; A0999 ==

== ENCOUNTER 2023-08-09 17:49 | Emergency (ER) | payer MEDICAID ==
[2023-08-09 18:08] VITALS: O2SAT 98
--- NOTE | 2023-08-09 18:55 | ED Physician Documentation ---
PD HPI DYSPNEA - Stated complaint Stated Complaint: SOA - Chief complaint Chief Complaint: Resp - Additional information Additional information: 53-year-old male well-known to our emergency department for frequent ER visits presents emergency department for chest pain and panic attack. Patient endorses and recent methamphetamine abuse and is having chest pain and difficulty breathing. No nausea vomiting diarrhea. PD PAST MEDICAL HISTORY - Past Medical History Past Medical History: Yes Cardiovascular: None Respiratory: None Neuro: None Endocrine/Autoimmune: None GI: GERD : None HEENT: None Psych: Depression Musculoskeletal: Osteoarthritis - Past Surgical History Past Surgical History: No - Present Medications Home Medications: Ambulatory Orders Medication Instructions Recorded Confirmed Esomeprazole Magnesium [Nexium] 5 mg PO DAILY 08/09/23 08/09/23 Gabapentin [Neurontin] 100 mg PO DAILY 08/09/23 08/09/23 - Allergies Allergies/Adverse Reactions: Allergies Allergy/AdvReac Type Severity Reaction Status Date / Time No Known Drug Allergies Allergy Verified 08/09/23 17:58 - Social History Does the pt smoke?: Yes Smoking Status: Current every day smoker Does the pt drink ETOH?: Yes Does the pt have substance abuse?: Yes - Immunizations Immunizations are current?: No - POLST Patient has POLST: No PD ED PE NORMAL - Vitals Vital signs reviewed: Yes - General General: Alert and oriented X 3, No acute distress, Well developed/nourished - HEENT HEENT: Atraumatic, PERRL - Cardiac Cardiac: RRR - Respiratory Respiratory: No respiratory distress, Clear bilaterally - Back Back: No CVA TTP - Derm Derm: Normal color, Warm and dry, No rash - Extremities Extremities: No edema, No calf tenderness / cord Results - Vitals Vitals: Vital Signs - 24 hr 08/09/23 08/09/23 08/09/23 17:54 19:58 21:00 Temperature 36.7 C Heart Rate 78 78 72 Respiratory 18 17 17 Rate Blood Pressure 136/90 H 130/84 H 133/97 H O2 Saturation 98 98 98 Oxygen O2 Source Room air - EKG (time done) 1930 EKG releavant findings:: EKG personally interpreted by author of this note. Relevant findings are: Rate: Rate (enter#) (78) Rhythm: NSR [place]: Normal Intervals: Normal [place] QRS: Normal Ischemia: Normal ST segments Computer interpretation: Agree with computer - Labs Labs: Laboratory Tests 08/09/23 08/09/23 19:17 19:17 WBC 13.4 H RBC 4.48 L Hgb 13.7 L Hct 41.1 L MCV 91.7 MCH 30.6 MCHC 33.3 RDW 12.6 Plt Count 361 MPV 8.7 Neut # (Auto) 9.2 H Lymph # (Auto) 2.6 [place] # (Auto) 1.1 H Eos # (Auto) 0.4 Baso # (Auto) 0.0 Absolute Nucleated RBC 0.00 Nucleated RBC % 0.0 Sodium 136 Potassium 3.8 Chloride 102 Carbon Dioxide 28 Anion Gap 6.0 BUN 20 Creatinine 0.9 Estimated GFR (MDRD) 89 Glucose 138 H Calcium 9.3 Total Bilirubin 0.2 AST 37 ALT 37 Alkaline Phosphatase 53 Troponin I High Sens 12.0 Total Protein 7.3 Albumin 3.8 Globulin 3.5 Albumin/Globulin Ratio 1.1 Lipase 41 - Rads (name of study) Chest x-ray Relevant Findings:: Final report received, EMP independent interpretation of test, Other (no cardiopulmonary abnormalities) PD Medical Decision Making - ED course ED course: Exam without evidence of volume overload so doubt heart failure. EKG without signs of active ischemia. Given the timing of pain to ER presentation, single troponin was negative so doubt NSTEMI. Presentation not consistent with acute PE (Wells low risk low),pneumothorax (not visualized on chest xr), thoracic aortic dissection, pericarditis, tamponade, pneumonia (no infectious symptoms, clear chest xr), myocarditis (no recent illness, neg trop). HEART score:2 so plan to discharge patient. Return precautions given to patient patient told to follow-up with primary care provider believe that the chest pain he is experiencing is due to methamphetamine abuse and patient was told to attempt at home measures to discontinue illicit drug use. Departure - Departure Disposition: 01 Home, Self Care Clinical Impression: Methamphetamine abuse Chest pain Qualifiers: Chest pain type: other chest pain Qualified Code(s): R07.89 - Other chest pain Condition: Stable Instructions: ED Chest Pain NonCardiac Comments: We have completed labs, chest x-ray and we are not seeing any acute abnormalities or findings at this point in time that would indicate a possible heart attack. I believe that the symptoms you are experiencing are most likely because of your methamphetamine abuse and I would generally encourage you to cut back or quit using meth. Please come back to the emergency department for having worsening chest pain, nausea vomiting with the chest pain, dizziness, vision changes or any other concerning symptoms. Forms: PCP List Discharge Date/Time: 08/09/23 21:18
[2023-08-09 19:27] LABS: BASOPHILS % (AUTO) 0.2 %; EOSINOPHILS # (AUTO) 0.4 10^3/uL (0.0-0.7); EOSINOPHILS % (AUTO) 2.8 %; HCT - HEMATOCRIT 41.1 % (42.0-52.0); HGB - HEMOGLOBIN 13.7 g/dL (14.0-18.0); LYMPHOCYTES # (AUTO) 2.6 10^3/uL (1.5-3.5); LYMPHOCYTES % (AUTO) 19.7 %; MEAN CORPUSCULAR HEMOGLOBIN 30.6 pg (27.0-31.0); MEAN CORPUSCULAR HGB CONC 33.3 g/dL (32.0-36.0); MEAN CORPUSCULAR VOLUME 91.7 fL (80.0-94.0); MEAN PLATELET VOLUME 8.7 fL (7.4-11.4); MONOCYTES # (AUTO) 1.1 10^3/uL (0.0-1.0); MONOCYTES % (AUTO) 8.1 %; NEUTROPHILS # (AUTO) 9.2 10^3/uL (1.5-6.6); NEUTROPHILS % (AUTO) 68.8 %; PLT - PLATELET COUNT 361 10^3/uL (130-450); RED BLOOD COUNT 4.48 10^6/uL (4.70-6.10); RED CELL DISTRIBUTION WIDTH 12.6 % (12.0-15.0); WHITE BLOOD COUNT 13.4 x10^3/uL (4.8-10.8)
[2023-08-09 19:40] LABS: ALBUMIN 3.8 g/dL (3.2-5.5); ALBUMIN/GLOBULIN RATIO 1.1 (1.0-2.2); BILIRUBIN,TOTAL 0.2 mg/dL (0.2-1.0); CALCIUM 9.3 mg/dL (8.5-10.3); CREATININE 0.9 mg/dL (0.6-1.3); POTASSIUM 3.8 mmol/L (3.5-4.5); TOTAL PROTEIN 7.3 g/dL (6.4-8.9)
--- NOTE | 2023-08-09 20:34 | XRAY Report ---
PROCEDURE: Chest 1V INDICATIONS: Chest Pain TECHNIQUE: One view of the chest was acquired. COMPARISON: None. FINDINGS: Surgical changes and devices: None. Lungs and pleura: No pleural effusions or pneumothorax. Lungs are clear. Mediastinum: Mediastinal contours appear normal. Heart size is normal. Bones and chest wall: No suspicious bony lesions. Overlying soft tissues appear unremarkable. IMPRESSION: No acute cardiopulmonary process. Reviewed by: Cristi Maldonado MD on 08/09/2023 8:33 PM PDT Approved by: Cristi Maldonado MD on 08/09/2023 8:33 PM PDT Station ID: [id number]
[2023-08-09 21:23] VITALS: BP 133/97
== END 2023-08-09 21:18 | disposition home or self-care (01) ==
LOC: EDUNIT# → ED 17:49
DX: R07.89 Other chest pain (principal); F17.200 Nicotine dependence, unspecified, uncomplicated
CPT/HCPCS: 36415; 80053; 83690; 84484; 85025; 93005; 99284

== ENCOUNTER 2023-08-28 02:49 | Outpatient (CLI) | payer MEDICAID | END 2023-08-28 23:59 | disposition critical access hospital (66) | LOC: EMS 02:49 | DX: R06.02 Shortness of breath (principal); M25.561 Pain in right knee; R12 Heartburn; R44.8 Other symptoms and signs involving general sensations and perceptions; F41.9 Anxiety disorder, unspecified | CPT/HCPCS: A0425; A0427; A0999 ==

== ENCOUNTER 2023-08-28 03:03 | Emergency (ER) | payer MEDICAID ==
--- NOTE | 2023-08-28 03:09 | ED Physician Documentation ---
History of Present Illness - Stated complaint Stated Complaint: SOFidelCP - History obtained from History obtained from: Patient - Additonal information Additional information: BIBA. Patient says to me "I can't breathe", c/o dyspnea, epigastric pain which he states is "my heartburn" (per patient). He says symptoms started approximately 1 hour [employer] without specific inciting event. A friend called 911 and EMS found patient outside of local [facility]. Patient uses methamphetamines, says his most recent use was yesterday. This is his 17th [facility] ED visit over past 12 months, 48th [facility] ED visit on [facility] records (date back to 2011). Has had previous [facility] ED visits with similar c/o, no findings on previous testing in ED. Review of Systems Constitutional: denies: Fever, Chills, Sweats Cardiac: reports: Chest pain / pressure. denies: Palpitations, Pedal edema, Calf pain Respiratory: reports: Dyspnea. denies: Cough, Hemoptysis, Wheezing GI: denies: Abdominal Pain, Nausea, Vomiting PD PAST MEDICAL HISTORY - Past Medical History Past Medical History: No - Present Medications Home Medications: Ambulatory Orders Medication Instructions Recorded Confirmed Esomeprazole Magnesium [Nexium] 5 mg PO DAILY 08/09/23 08/09/23 Gabapentin [Neurontin] 100 mg PO DAILY 08/09/23 08/09/23 - Allergies Allergies/Adverse Reactions: Allergies Allergy/AdvReac Type Severity Reaction Status Date / Time No Known Drug Allergies Allergy Verified 08/28/23 03:29 PD ED PE NORMAL - Vitals Vital signs reviewed: Yes - General General: Alert and oriented X 3, Well developed/nourished, Other (appears anxious, mildly hyperkinetic at times but polite and follows commands, answers appropriately) - HEENT HEENT: PERRL, EOMI, Moist mucous membranes - Cardiac Cardiac: RRR, No murmur - Respiratory Respiratory: No respiratory distress, Clear bilaterally, Other (hyperventilating at times but this resolves when distratcted (such as with questions about other than symptoms)) - Abdomen Abdomen: Soft, Non tender - Extremities Extremities: No edema Results - Vitals Vitals: Vital Signs - 24 hr 08/28/23 08/28/23 08/28/23 03:08 03:44 04:48 Temperature 36.6 C Heart Rate 74 60 71 Respiratory 18 16 16 Rate Blood Pressure 132/75 H 121/84 H 128/79 O2 Saturation 100 100 100 Oxygen O2 Source Room air - EKG (time done) No standard instances EKG releavant findings:: EKG personally interpreted by author of this note. Relevant findings are: Rate: Rate (enter#) (70) Rhythm: NSR [place]: LAD Intervals: Normal [place] QRS: Normal Ischemia: Normal ST segments Other comments: Other comments (PVC) Computer interpretation: Disagree with computer (no Q waves on EKG including inferior leads) - Rads (name of study) chest xray Relevant Findings:: Prelim report reviewed, See rad report PD Medical Decision Making - ED course Complexity details: reviewed results, re-evaluated patient, considered differential, d/w patient ED course: Asking for something for his abdominal discomfort, specifically tylenol or ibuprofen. He also requests prilosec or nexium, says he takes this on a regular basis for his heartburn. He is given 40mg PO protonix here (the PPI we have in stock in this ED) and 600mg PO ibuprofen. He is also given 30cc maalox po. I offered PO lorazepam, as he appears mildly anxious, hyperventilating at times; he is agreeable with this and is given 0.5mg lorazepam PO. No concerning findings on EKG, CXR. Given frequency of visits, some of which have been for similar c/o with mostly unremarkable w/u (for example 08/09/23, 06/12/23, 07/27/22; on some visits, mildly/moderately elevated CPK noted), testing tonight is limited to screening EKG and CXR. Results d/w patient. On reevaluation, he is asleep, wakes only with repeat verbal and gentle tactile (shoulder shake). He is in NAD, no longer appears anxious and no longer hyperventilating. I advised him to seek follow up with an outpatient PCP. Departure - Departure Disposition: 01 Home, Self Care Clinical Impression: Epigastric pain Condition: Good Instructions: ED Abdominal Pain Unkn Cause Male Comments: There were no concerning findings on the chest xray nor on the EKG. Please seek follow up with an outpatient local general practitioner/medical provider for regular follow up. Forms: PCP List Discharge Date/Time: 08/28/23 04:48
[2023-08-28 03:22] VITALS: O2SAT 100
[2023-08-28] MEDS: PANTOPRAZOLE 40 MG TABLET PO STA (03:38)
[2023-08-28] MEDS: LORazepam 0.5 MG TABLET PO STA (03:38)
[2023-08-28] MEDS: MAG HYDROX/AL HYDROX/SIMETH 30 ML UDC PO STA (03:38)
[2023-08-28] MEDS: IBUPROFEN 600 MG TABLET PO STA (04:20)
[2023-08-28 04:52] VITALS: BP 128/79
--- NOTE | 2023-08-28 06:44 | XRAY Report ---
PROCEDURE: Chest 2V INDICATIONS: chest pain, dyspnea TECHNIQUE: 2 views of the chest were acquired. COMPARISON: 08/09/2023 FINDINGS: Surgical changes and devices: None. Lungs and pleura: Low lung volumes with mild vascular crowding centrally and streaky bibasilar opaci ties consistent with atelectasis. No dense consolidation. No substantial pleural effusion. No pneumot horax. Mediastinum: Mediastinal contours appear normal. Heart size is normal. Bones and chest wall: No suspicious bony lesions. Overlying soft tissues appear unremarkable. IMPRESSION: Low lung volumes with mild central vascular crowding and bibasilar atelectasis. No focal consolidatio n. Otherwise, no acute cardiopulmonary abnormalities. Findings are concordant with preliminary interpretation provided by [facility]. Reviewed by: Ishaan Luna MD on 08/28/2023 6:43 AM PDT Approved by: Ishaan Luna MD on 08/28/2023 6:43 AM PDT Station ID: [id number]
== END 2023-08-28 04:48 | disposition home or self-care (01) ==
LOC: EDUNIT# → ED 03:03
DX: R06.09 Other forms of dyspnea (principal); R12 Heartburn; F41.9 Anxiety disorder, unspecified
CPT/HCPCS: 71046; 93005; 99283; 99284; A9270

== ENCOUNTER 2023-09-01 18:59 | Emergency (ER) | payer MEDICAID ==
[2023-09-01 19:17] VITALS: BP 107/59; O2SAT 97
--- NOTE | 2023-09-01 19:24 | ED Physician Documentation ---
PD HPI LOWER EXT INJURY - Stated complaint Stated Complaint: FELL OFF PICNIC TABLE - Chief complaint Chief Complaint: Trauma Ext - History obtained from History obtained from: Patient, EMS - Additional information Additional information: 53yM undomiciled presents after falling off a 3 foot table [place] [employer]. he told ems he hit his R knee and has pain related to this. denies prior injury. denies ht, loc. PD PAST MEDICAL HISTORY - Past Medical History Cardiovascular: None Respiratory: None Neuro: None Endocrine/Autoimmune: None GI: GERD : None HEENT: None Psych: Depression Musculoskeletal: Osteoarthritis - Past Surgical History Past Surgical History: No - Present Medications Home Medications: Ambulatory Orders Medication Instructions Recorded Confirmed Esomeprazole Magnesium [Nexium] 5 mg PO DAILY 08/09/23 08/09/23 Gabapentin [Neurontin] 100 mg PO DAILY 08/09/23 08/09/23 - Allergies Allergies/Adverse Reactions: Allergies Allergy/AdvReac Type Severity Reaction Status Date / Time No Known Drug Allergies Allergy Verified 08/28/23 03:29 - Social History Does the pt smoke?: Yes Smoking Status: Current every day smoker Does the pt drink ETOH?: Yes Does the pt have substance abuse?: Yes - Immunizations Immunizations are current?: No - POLST Patient has POLST: No PD ED PE NORMAL - Vitals Vital signs reviewed: Yes - General General: Alert and oriented X 3, No acute distress, Well developed/nourished - HEENT HEENT: Atraumatic, PERRL, EOMI, Moist mucous membranes - Neck Neck: No bony TTP - Derm Derm: Normal color, Warm and dry - Extremities Extremities: No deformity, No tenderness to palpate, Normal ROM s pain, No edema, No calf tenderness / cord, Other (2+ DP pulses BL LE. normal ROM BL knees. nontender to valgus/varus pressure. negative anterior drawer sign. csm intact) Results - Vitals Vitals: Vital Signs - 24 hr 09/01/23 19:07 Temperature 37.2 C Heart Rate 74 Respiratory 18 Rate Blood Pressure 107/59 L O2 Saturation 97 Oxygen O2 Source Room air PD Medical Decision Making - ED course ED course: 53yM presents for medical evaluation after falling off a table. he appears uninjured on physical exam. He also states he is dehydrated . He has moist MM and is tolerating PO water I provided for him. return precautions given. Departure - Departure Disposition: 01 Home, Self Care Clinical Impression: Fall from table Condition: Good Instructions: ED RICE Comments: You were seen in the ED for medical exam after a fall. You do not appear to have any injuries. Please follow up with your primary care provider routinely (referral provided). Return to the ED for new or worsening symptoms or other concerns. You can call the local police station to request courtesy transport.
== END 2023-09-01 19:54 | disposition home or self-care (01) ==
LOC: EDUNIT# → ED 18:59
DX: M25.561 Pain in right knee (principal); W08.XXXA Fall from other furniture, initial encounter; Y92.242 Post office as the place of occurrence of the external cause; F17.200 Nicotine dependence, unspecified, uncomplicated; Z59.02 Unsheltered homelessness
CPT/HCPCS: 99283